=== PATIENT | male | born 1965 | race Caucasian/White ===

== ENCOUNTER 2017-08-17 19:27 | Inpatient (IN) | payer OTHER ==
[2017-08-17] MEDS ORDERED: SODIUM CHLORIDE 0.9% 1,000 ML IV SCH (20:15)
[2017-08-17 20:27] LABS: Basophils % (A) 0 %; CH 35.6; CHCM 34.6; Eosinophils # (A) 0.1 k/uL (0-0.7); Eosinophils % (A) 1 %; HCT 47.4 % (39.0-53.0); HDW 2.23; HGB 15.3 gm/dL (13.0-17.5); Luc # (Auto) 0.13; Luc % (Auto) 1; Lymphocytes # (A) 0.6 k/uL (1.0-4.8); Lymphocytes % (A) 4 %; MCH 33.4 pg (25.0-35.0); MCHC 32.4 g/dL (31.0-37.0); MCV 103.3 fL (80.0-100.0); Macrocytosis Slight; Mean Platelet Volume 6.6; Monocytes # (A) 0.9 k/uL (0-1.0); Monocytes % (A) 6 %; Neutrophils # (A) 14.4 k/uL (1.3-7.7); Neutrophils % (A) 89 %; RBC 4.58 m/uL (4.30-5.90); RDW 12.8 % (11.5-15.5); WBC 16.3 k/uL (3.8-10.6); WBC (Perox) 17.09
[2017-08-17 20:36] LABS: Partial Thromboplastin Time 29.2 sec (22.0-30.0)
[2017-08-17 20:38] LABS: Prothrombin Time 10.2 sec (9.0-12.0)
[2017-08-17 20:39] LABS: ALT 47 U/L (21-72); AST 57 U/L (17-59); Alkaline Phosphatase 91 U/L (38-126); Anion Gap 7 mmol/L; Blood Urea Nitrogen 6 mg/dL (9-20); Calcium 8.4 mg/dL (8.4-10.2); Carbon Dioxide 28 mmol/L (22-30); Glucose 95 mg/dL (74-99); Magnesium 1.6 mg/dL (1.6-2.3); Non-African American GFR(MDRD) >60 (>60 ml/min/1.73 sqM); Total Bilirubin 0.7 mg/dL (0.2-1.3); Total Protein 6.9 g/dL (6.3-8.2)
[2017-08-17 20:42] LABS: Chloride 75 mmol/L (98-107); Sodium 110 mmol/L (137-145)
--- NOTE | 2017-08-17 20:53 | XR ---
EXAMINATION TYPE: XR chest 2V DATE OF EXAM: 08/17/2017 COMPARISON: NONE HISTORY: Fatigue TECHNIQUE: Frontal and lateral views of the chest are obtained. FINDINGS: There is patchy infiltrate in the left lower lobe. Heart is no grossly enlarged. There is blunting of left costophrenic angle. There are chest leads. Thoracic aorta is atheromatous. Bony thor ax is intact. IMPRESSION: There is left pleural effusion and left lower lobe pneumonia. No gross heart failure.
[2017-08-17 20:56] LABS: Appearance,Urine Clear (Clear); Bilirubin,Urine Negative (Negative); Glucose,Urine (UA) Negative (Negative); Ketones,Urine Negative (Negative); Leukocyte Esterase,Urine Negative (Negative); Mucus,Urine Rare /hpf; Nitrite,Urine Negative (Negative); Particle Count 342; Protein,Urine Negative (Negative); RBC,Urine 4 /hpf (0-5); Specific Gravity,Urine 1.009 (1.001-1.035); Squamous Epithelial Cell,Urine <1 /hpf (0-4); UA Billing (MACRO vs. MICRO) MICRO; Urobilinogen,Urine <2.0 mg/dL (<2.0); WBC,Urine 1 /hpf (0-5)
[2017-08-17] MEDS ORDERED: AZITHROMYCIN 500 MG in SODIUM CHLORIDE 0.9% 250 ML IVPB STA (21:01)
--- NOTE | 2017-08-17 21:10 | ED ---
General Adult HPI - General Chief complaint: Recheck/Abnormal Lab/Rx Stated complaint: Dizzy/Weakness Time Seen by Provider: 08/17/17 20:03 Source: patient, family Mode of arrival: ambulatory Limitations: no limitations - History of Present Illness Initial comments: This is a 52-year-old male with a history of hypertension and chronic low back pain who presents emergency department for low sodium. He was sent in by his primary doctor. He states that he has a history of this over the last few weeks and there've been trying to figure out what the causes however when he had his labwork drawn earlier today was very low so they told to come emergency department. He does admit to some cough and shortness of breath. Denies any leg swelling. No lightheadedness or dizziness. No weakness. He states he is recently changed from one blood pressure medication to another but no other medication changes. He denies any other acute complaints currently. - Related Data Home Medications Medication Instructions Recorded Confirmed oxyCODONE HCL [OxyCONTIN] 30 mg PO Q12H 04/14/16 08/17/17 oxyCODONE HCL [Oxyir] 5 mg PO Q8H PRN 04/14/16 08/17/17 Budesonide/Formoterol Fumarate 2 puff INHALATION RT-BID 08/17/17 08/17/17 [Symbicort 160-4.5 Mcg Inhaler] Citalopram Hydrobromide [CeleXA] 40 mg PO DAILY 08/17/17 08/17/17 Lisinopril [Prinivil] 20 mg PO DAILY 08/17/17 08/17/17 Tamsulosin [Flomax] 0.4 mg PO DAILY 08/17/17 08/17/17 Allergies Allergy/AdvReac Type Severity Reaction Status Date / Time No Known Allergies Allergy Verified 08/17/17 20:21 Review of Systems ROS Statement: Those systems with pertinent positive or pertinent negative responses have been documented in the HPI. ROS Other: All systems not noted in ROS Statement are negative. Past Medical History Past Medical History: Hypertension, Osteoarthritis (OA) History of Any Multi-Drug Resistant Organisms: None Reported Additional Past Surgical History / Comment(s): PAIN CLINIC PROCEDURES Past Anesthesia/Blood Transfusion Reactions: No Reported Reaction Past Psychological History: Depression Smoking Status: Current every day smoker - Past Family History Mother Family Medical History: No Reported History General Exam - General Exam Comments Initial Comments: Constitutional: Awake alert Appears comfortable Head: Normocephalic atraumatic Eyes: no conjunctival injection No scleral icterus EOMI Neck: No JVD Supple Heart: Regular rate rhythm normal S1-S2 no murmurs Lungs: Clear to auscultation bilaterally No wheezing b/l rales at bases Abdomen: Soft nondistended nontender Extremities: Non edematous DP pulses intact Radial pulses intact Neuro: A&Ox3 No focal neurologic deficits Psych: Appropriate mood and affect Limitations: no limitations Course Vital Signs 08/17/17 08/17/17 08/17/17 19:44 20:20 21:35 Temperature 97.9 F Pulse Rate 88 84 81 Respiratory 24 20 16 Rate Blood Pressure 146/73 169/100 152/80 O2 Sat by Pulse 79 L 95 95 Oximetry EKG Findings - EKG Comments: EKG Findings:: EKG showing normal sinus rhythm with a rate 84. No abnormal ST segment changes or T-wave inversion. QTC is 423. Other intervals are normal no ectopy. Medical Decision Making - Medical Decision Making This is a 52-year-old male who presents emergency report for low sodium. He was found to be 110. He also has found to have pneumonia or some kind of mass on his x-ray. He was sent down for CAT scan. Spoke with Dr. Adis Benoit who are on board. They want started 3% saline the patient will be transferred to ICU under the care of Dr. Mack. - Lab Data Result diagrams: 08/17/17 20:05 08/17/17 20:05 Lab Results 08/17/17 08/17/17 08/17/17 Range/Units 20:05 20:05 20:05 WBC 16.3 H (3.8-10.6) k/uL RBC 4.58 (4.30-5.90) m/uL Hgb 15.3 (13.0-17.5) gm/dL Hct 47.4 (39.0-53.0) % MCV 103.3 H (80.0-100.0) fL MCH 33.4 (25.0-35.0) pg MCHC 32.4 (31.0-37.0) g/dL RDW 12.8 (11.5-15.5) % Plt Count 315 (150-450) k/uL Neutrophils % 89 % Lymphocytes % 4 % Monocytes % 6 % Eosinophils % 1 % Basophils % 0 % Neutrophils # 14.4 H (1.3-7.7) k/uL Lymphocytes # 0.6 L (1.0-4.8) k/uL Monocytes # 0.9 (0-1.0) k/uL Eosinophils # 0.1 (0-0.7) k/uL Basophils # 0.0 (0-0.2) k/uL Macrocytosis Slight PT (9.0-12.0) sec INR (<1.2) APTT (22.0-30.0) sec Sodium 110 L* (137-145) mmol/L Potassium 5.0 (3.5-5.1) mmol/L Chloride 75 L* (98-107) mmol/L Carbon Dioxide 28 (22-30) mmol/L Anion Gap 7 mmol/L BUN 6 L (9-20) mg/dL Creatinine 0.50 L (0.66-1.25) mg/dL Est GFR (MDRD) Af Amer >60 (>60 ml/min/1.73 sqM) Est GFR (MDRD) Non-Af >60 (>60 ml/min/1.73 sqM) Glucose 95 (74-99) mg/dL Osmolality (280-301) mosm/kg Plasma Lactic Acid Stanley (0.7-2.0) mmol/L Calcium 8.4 (8.4-10.2) mg/dL Magnesium 1.6 (1.6-2.3) mg/dL Total Bilirubin 0.7 (0.2-1.3) mg/dL AST 57 (17-59) U/L ALT 47 (21-72) U/L Alkaline Phosphatase 91 (38-126) U/L Troponin I <0.012 (0.000-0.034) ng/mL NT-Pro-B Natriuret Pep pg/mL Total Protein 6.9 (6.3-8.2) g/dL Albumin 3.9 (3.5-5.0) g/dL Urine Color Urine Appearance (Clear) Urine pH (5.0-8.0) Ur Specific [place] (1.001-1.035) Urine Protein (Negative) Urine Glucose (UA) (Negative) Urine Ketones (Negative) Urine Blood (Negative) Urine Nitrite (Negative) Urine Bilirubin (Negative) Urine Urobilinogen (<2.0) mg/dL Ur Leukocyte Esterase (Negative) Urine RBC (0-5) /hpf Urine WBC (0-5) /hpf Ur Squamous Epith Cells (0-4) /hpf Hyaline Casts (0-2) /lpf Urine Mucus (None) /hpf Urine Osmolality (50-1400) mosm/kg Ur Random Creatinine mg/dL Ur Random Sodium (30-90) mmol/L 08/17/17 08/17/17 08/17/17 Range/Units 20:05 20:05 20:05 WBC (3.8-10.6) k/uL RBC (4.30-5.90) m/uL Hgb (13.0-17.5) gm/dL Hct (39.0-53.0) % MCV (80.0-100.0) fL MCH (25.0-35.0) pg MCHC (31.0-37.0) g/dL RDW (11.5-15.5) % Plt Count (150-450) k/uL Neutrophils % % Lymphocytes % % Monocytes % % Eosinophils % % Basophils % % Neutrophils # (1.3-7.7) k/uL Lymphocytes # (1.0-4.8) k/uL Monocytes # (0-1.0) k/uL Eosinophils # (0-0.7) k/uL Basophils # (0-0.2) k/uL Macrocytosis PT 10.2 (9.0-12.0) sec INR 1.0 (<1.2) APTT 29.2 (22.0-30.0) sec Sodium (137-145) mmol/L Potassium (3.5-5.1) mmol/L Chloride (98-107) mmol/L Carbon Dioxide (22-30) mmol/L Anion Gap mmol/L BUN (9-20) mg/dL Creatinine (0.66-1.25) mg/dL Est GFR (MDRD) Af Amer (>60 ml/min/1.73 sqM) Est GFR (MDRD) Non-Af (>60 ml/min/1.73 sqM) Glucose (74-99) mg/dL Osmolality 236 L* (280-301) mosm/kg Plasma Lactic Acid Stanley (0.7-2.0) mmol/L Calcium (8.4-10.2) mg/dL Magnesium (1.6-2.3) mg/dL Total Bilirubin (0.2-1.3) mg/dL AST (17-59) U/L ALT (21-72) U/L Alkaline Phosphatase (38-126) U/L Troponin I (0.000-0.034) ng/mL NT-Pro-B Natriuret Pep 261 pg/mL Total Protein (6.3-8.2) g/dL Albumin (3.5-5.0) g/dL Urine Color Urine Appearance (Clear) Urine pH (5.0-8.0) Ur Specific [place] (1.001-1.035) Urine Protein (Negative) Urine Glucose (UA) (Negative) Urine Ketones (Negative) Urine Blood (Negative) Urine Nitrite (Negative) Urine Bilirubin (Negative) Urine Urobilinogen (<2.0) mg/dL Ur Leukocyte Esterase (Negative) Urine RBC (0-5) /hpf Urine WBC (0-5) /hpf Ur Squamous Epith Cells (0-4) /hpf Hyaline Casts (0-2) /lpf Urine Mucus (None) /hpf Urine Osmolality (50-1400) mosm/kg Ur Random Creatinine mg/dL Ur Random Sodium (30-90) mmol/L 08/17/17 08/17/17 08/17/17 Range/Units 20:05 20:36 20:36 WBC (3.8-10.6) k/uL RBC (4.30-5.90) m/uL Hgb (13.0-17.5) gm/dL Hct (39.0-53.0) % MCV (80.0-100.0) fL MCH (25.0-35.0) pg MCHC (31.0-37.0) g/dL RDW (11.5-15.5) % Plt Count (150-450) k/uL Neutrophils % % Lymphocytes % % Monocytes % % Eosinophils % % Basophils % % Neutrophils # (1.3-7.7) k/uL Lymphocytes # (1.0-4.8) k/uL Monocytes # (0-1.0) k/uL Eosinophils # (0-0.7) k/uL Basophils # (0-0.2) k/uL Macrocytosis PT (9.0-12.0) sec INR (<1.2) APTT (22.0-30.0) sec Sodium (137-145) mmol/L Potassium (3.5-5.1) mmol/L Chloride (98-107) mmol/L Carbon Dioxide (22-30) mmol/L Anion Gap mmol/L BUN (9-20) mg/dL Creatinine (0.66-1.25) mg/dL Est GFR (MDRD) Af Amer (>60 ml/min/1.73 sqM) Est GFR (MDRD) Non-Af (>60 ml/min/1.73 sqM) Glucose (74-99) mg/dL Osmolality (280-301) mosm/kg Plasma Lactic Acid Stanley 1.3 (0.7-2.0) mmol/L Calcium (8.4-10.2) mg/dL Magnesium (1.6-2.3) mg/dL Total Bilirubin (0.2-1.3) mg/dL AST (17-59) U/L ALT (21-72) U/L Alkaline Phosphatase (38-126) U/L Troponin I (0.000-0.034) ng/mL NT-Pro-B Natriuret Pep pg/mL Total Protein (6.3-8.2) g/dL Albumin (3.5-5.0) g/dL Urine Color Light Yellow Urine Appearance Clear (Clear) Urine pH 6.0 (5.0-8.0) Ur Specific [place] 1.009 (1.001-1.035) Urine Protein Negative (Negative) Urine Glucose (UA) Negative (Negative) Urine Ketones Negative (Negative) Urine Blood Trace H (Negative) Urine Nitrite Negative (Negative) Urine Bilirubin Negative (Negative) Urine Urobilinogen <2.0 (<2.0) mg/dL Ur Leukocyte Esterase Negative (Negative) Urine RBC 4 (0-5) /hpf Urine WBC 1 (0-5) /hpf Ur Squamous Epith Cells <1 (0-4) /hpf Hyaline Casts 1 (0-2) /lpf Urine Mucus Rare H (None) /hpf Urine Osmolality (50-1400) mosm/kg Ur Random Creatinine 33.3 mg/dL Ur Random Sodium (30-90) mmol/L 08/17/17 08/17/17 Range/Units 20:36 20:36 WBC (3.8-10.6) k/uL RBC (4.30-5.90) m/uL Hgb (13.0-17.5) gm/dL Hct (39.0-53.0) % MCV (80.0-100.0) fL MCH (25.0-35.0) pg MCHC (31.0-37.0) g/dL RDW (11.5-15.5) % Plt Count (150-450) k/uL Neutrophils % % Lymphocytes % % Monocytes % % Eosinophils % % Basophils % % Neutrophils # (1.3-7.7) k/uL Lymphocytes # (1.0-4.8) k/uL Monocytes # (0-1.0) k/uL Eosinophils # (0-0.7) k/uL Basophils # (0-0.2) k/uL Macrocytosis PT (9.0-12.0) sec INR (<1.2) APTT (22.0-30.0) sec Sodium (137-145) mmol/L Potassium (3.5-5.1) mmol/L Chloride (98-107) mmol/L Carbon Dioxide (22-30) mmol/L Anion Gap mmol/L BUN (9-20) mg/dL Creatinine (0.66-1.25) mg/dL Est GFR (MDRD) Af Amer (>60 ml/min/1.73 sqM) Est GFR (MDRD) Non-Af (>60 ml/min/1.73 sqM) Glucose (74-99) mg/dL Osmolality (280-301) mosm/kg Plasma Lactic Acid Stanley (0.7-2.0) mmol/L Calcium (8.4-10.2) mg/dL Magnesium (1.6-2.3) mg/dL Total Bilirubin (0.2-1.3) mg/dL AST (17-59) U/L ALT (21-72) U/L Alkaline Phosphatase (38-126) U/L Troponin I (0.000-0.034) ng/mL NT-Pro-B Natriuret Pep pg/mL Total Protein (6.3-8.2) g/dL Albumin (3.5-5.0) g/dL Urine Color Urine Appearance (Clear) Urine pH (5.0-8.0) Ur Specific [place] (1.001-1.035) Urine Protein (Negative) Urine Glucose (UA) (Negative) Urine Ketones (Negative) Urine Blood (Negative) Urine Nitrite (Negative) Urine Bilirubin (Negative) Urine Urobilinogen (<2.0) mg/dL Ur Leukocyte Esterase (Negative) Urine RBC (0-5) /hpf Urine WBC (0-5) /hpf Ur Squamous Epith Cells (0-4) /hpf Hyaline Casts (0-2) /lpf Urine Mucus (None) /hpf Urine Osmolality 403 (50-1400) mosm/kg Ur Random Creatinine mg/dL Ur Random Sodium 96 H (30-90) mmol/L Disposition Clinical Impression: Hyponatremia, CAP (community acquired pneumonia) Disposition: ADMITTED IP TO THIS [facility] Condition: Critical
[2017-08-17] MEDS ORDERED: NALOXONE 0.4 MG/ML 1 ML VIAL IV PRN (21:37)
[2017-08-17] MEDS ORDERED: RX INFO: IV CONTRAST WAS GIVEN 1 EACH MISC MISCELLANE PRN (21:53)
--- NOTE | 2017-08-17 22:26 | CT ---
EXAMINATION TYPE: CT chest w con DATE OF EXAM: 08/17/2017 COMPARISON: NONE HISTORY: Pneumonia CT DLP: 164.2 mGycm Automated exposure control for dose reduction was used. CONTRAST: CT scan of the chest is performed with IV Contrast, patient injected with 100 mL of Omnipaque 300. FINDINGS: There is a 1.5 cm nodular infiltrate in the anterior right upper lobe. There is abnormal increased de nsity around the left pulmonary hilum and subcarinal region. There is encasement of the left pulmonar y artery. There is left bronchial adenopathy. There is left pleural effusion. There is coarse interst itial edema in the left lower lobe. There is mild subpleural interstitial infiltrate in the right low er lobe. There is no pleural fluid on the right side. There is no adrenal mass. There is 2 cm right renal cortical cyst. Heart size is normal. There is no pericardial effusion. Thoracic aorta appears normal. There is no si gn of aneurysm or dissection. I see no sign of pulmonary embolism. The bony thorax is intact. IMPRESSION: Left pleural effusion with interstitial and alveolar edema in the left lung predominantl y in the left lower lobe. There is extensive left sided bronchial adenopathy and subcarinal adenopath y that is suspicious for tumor. Mild infiltrates in the right lung. Follow-up is recommended. No evidence of pulmonary embolism.
[2017-08-17 22:49] LABS: Glucose,Whole Blood 103 mg/dL (75-99)
[2017-08-17] MEDS ORDERED: SODIUM CHLORIDE 3%(HYPERTONIC) 500 ML IV SCH (23:00)
[2017-08-17] MEDS: oxyCODONE ER 15 MG TAB.ER.12H PO SCH (23:07)
[2017-08-17 23:14] LABS: Basophils # (A) 0.1 k/uL (0-0.2); Basophils % (A) 0 %; CH 35.2; CHCM 34.9; Eosinophils # (A) 0.1 k/uL (0-0.7); Eosinophils % (A) 1 %; HCT 47.9 % (39.0-53.0); HDW 2.25; HGB 15.8 gm/dL (13.0-17.5); Luc # (Auto) 0.12; Luc % (Auto) 1; Lymphocytes # (A) 0.7 k/uL (1.0-4.8); Lymphocytes % (A) 4 %; MCH 33.5 pg (25.0-35.0); MCHC 33.1 g/dL (31.0-37.0); MCV 101.3 fL (80.0-100.0); Mean Platelet Volume 6.8; Monocytes # (A) 0.7 k/uL (0-1.0); Monocytes % (A) 5 %; Neutrophils # (A) 13.2 k/uL (1.3-7.7); Neutrophils % (A) 89 %; RBC 4.72 m/uL (4.30-5.90); RDW 12.7 % (11.5-15.5); WBC 14.9 k/uL (3.8-10.6); WBC (Perox) 14.95
[2017-08-17 23:24] LABS: Ionized Calcium 4.2 mg/dL (4.5-5.3)
[2017-08-17 23:31] LABS: Anion Gap 5 mmol/L; Blood Urea Nitrogen 5 mg/dL (9-20); Calcium 8.3 mg/dL (8.4-10.2); Carbon Dioxide 27 mmol/L (22-30); Glucose 89 mg/dL (74-99); Magnesium 1.7 mg/dL (1.6-2.3); Non-African American GFR(MDRD) >60 (>60 ml/min/1.73 sqM); Phosphorous 3.2 mg/dL (2.5-4.5); Potassium 5.1 mmol/L (3.5-5.1)
[2017-08-17 23:32] LABS: Chloride 77 mmol/L (98-107); Sodium 109 mmol/L (137-145)
[2017-08-18 00:36] VITALS: BMI 21.5
[2017-08-18 02:27] LABS: CH 34.6; CHCM 33.7; HCT 42.5 % (39.0-53.0); HDW 2.26; MCH 36.4 pg (25.0-35.0); MCHC 35.3 g/dL (31.0-37.0); MCV 103.1 fL (80.0-100.0); Macrocytosis Slight; Mean Platelet Volume 6.1; RBC 4.13 m/uL (4.30-5.90); RDW 12.1 % (11.5-15.5); WBC 13.3 k/uL (3.8-10.6)
[2017-08-18 02:40] LABS: ALT 43 U/L (21-72); AST 51 U/L (17-59); Alkaline Phosphatase 73 U/L (38-126); Anion Gap 4 mmol/L; Blood Urea Nitrogen 6 mg/dL (9-20); Calcium 8.2 mg/dL (8.4-10.2); Carbon Dioxide 28 mmol/L (22-30); Chloride 81 mmol/L (98-107); Glucose 91 mg/dL (74-99); Magnesium 1.7 mg/dL (1.6-2.3); Non-African American GFR(MDRD) >60 (>60 ml/min/1.73 sqM); Phosphorous 3.5 mg/dL (2.5-4.5); Total Bilirubin 0.6 mg/dL (0.2-1.3); Total Protein 5.9 g/dL (6.3-8.2)
[2017-08-18 02:49] LABS: Sodium 113 mmol/L (137-145)
[2017-08-18] MEDS: MAGNESIUM SULFATE-D5W PMX 1 GM in DEXTROSE/WATER 1 100ML.BAG IVPB SCH ×2 (04:54→05:56)
--- NOTE | 2017-08-18 07:22 | XR ---
EXAMINATION TYPE: XR chest 1V portable DATE OF EXAM: 08/18/2017 HISTORY: Shortness of breath. COMPARISON: 08/17/2017 TECHNIQUE: Single view of the chest is submitted. FINDINGS: Demonstrated are scattered senescent parenchymal change. There is left lower lobe infiltrate which is improving. The heart is stable. Hilar and mediastinal structures are within normal limits. Degenerative changes are seen of the dorsal spine. IMPRESSION: 1. Improving left lower lobe infiltrate.
[2017-08-18 07:46] LABS: ALT 43 U/L (21-72); AST 40 U/L (17-59); Alkaline Phosphatase 78 U/L (38-126); Anion Gap 5 mmol/L; Blood Urea Nitrogen 5 mg/dL (9-20); Calcium 8.2 mg/dL (8.4-10.2); Carbon Dioxide 30 mmol/L (22-30); Chloride 83 mmol/L (98-107); Glucose 100 mg/dL (74-99); Non-African American GFR(MDRD) >60 (>60 ml/min/1.73 sqM); Potassium 4.5 mmol/L (3.5-5.1); Total Bilirubin 0.7 mg/dL (0.2-1.3); Total Protein 5.8 g/dL (6.3-8.2)
[2017-08-18 07:54] LABS: Sodium 118 mmol/L (137-145)
[2017-08-18] MEDS: SYMBICORT 160-4.5 MCG INHALER INHALATION SCH ×2 (08:11→19:24)
[2017-08-18] MEDS: oxyCODONE ER 15 MG TAB.ER.12H PO SCH ×2 (08:29→20:58)
[2017-08-18] MEDS: TAMSULOSIN 0.4 MG CAP.ER.24H PO SCH (08:29)
--- NOTE | 2017-08-18 08:53 | P.CNPUL ---
History of Present Illness Consult date: 08/18/17 Reason for consult: lung mass History of present illness: 52-year-old male patient who was having difficulties with hyponatremia on outpatient basis. The patient was worked up initially through his primary care physician and later on sent to endocrinology. Yesterday he came into the emergency department knowing that his sodium level on outpatient was 110. He was feeling weak and tired. He was relatively asymptomatic. He has chronic shortness of breath cough chest tightness and wheezing related to chronic bronchitis and COPD. The patient has smoked one half pack of cigarettes a day for a total of 40 years. He had been using Symbicort on an as-needed basis for shortness of breath. The patient came into the emergency department yesterday. I reviewed the chest x-ray and there was volume loss and elevation of left hemidiaphragm and possibly left hilar mass. Based on this, I ordered a computed tomography scan of the chest that showed a 1.5 cm another infiltrate in the anterior aspect of the right upper lobe. Abnormal increased density in the left hilar area and subcarinal area and there is encasement of the left pulmonary artery and there is left bronchial adenopathy. There was also small left-sided pleural effusion. Coarse interstitial edema in the left lower lobe and mild subpleural interstitial infiltrates in the right lung base. No adrenal mass. The findings are suspicious for a primary bronchogenic cancer. In terms of his hyponatremia, the patient has received hypertonic solution saline overnight at 3 % at the rate of 20 mL an hour and the sodium level is up to 118 this morning. No headache. No nausea. No vomiting. No diarrhea. No excessive beer drinking. He has no change in mental status. He has no hemoptysis. No weight loss. No seizure activity. No altered mentation. Based on the rapid improvement in sodium level, the hypertonic saline was discontinued and the patient was started on a 0.9 saline solution at the rate of 20 mL an hour. The urine osmolality is at 403. Urine sodium is 96. Review of Systems Constitutional: Reports fatigue, Reports weakness Eyes: denies blurred vision, denies bulging eye, denies decreased vision Ears: deny: decreased hearing, ear discharge, earache Ears, nose, mouth and throat: Denies headache, Denies sore throat Cardiovascular: Reports decreased exercise tolerance, Reports dyspnea on exertion, Reports shortness of breath Respiratory: Reports cough, Reports cough with sputum, Reports dyspnea, Reports wheezing Gastrointestinal: Denies abdominal pain, Denies diarrhea, Denies nausea, Denies vomiting Musculoskeletal: Denies myalgias Musculoskeletal: absent: ankle pain, ankle stiffness, ankle swelling Integumentary: Denies pruritus, Denies rash Neurological: Reports weakness, Denies numbness Psychiatric: Denies anxiety, Denies depression Past Medical History Past Medical History: Hypertension, Osteoarthritis (OA) Additional Past Medical History / Comment(s): Hypertension, COPD/chronic bronchitis, chronic lower back pain, OA, anxiety/depression maintained on Celexa , BPH History of Any Multi-Drug Resistant Organisms: None Reported Additional Past Surgical History / Comment(s): PAIN CLINIC PROCEDURES Past Anesthesia/Blood Transfusion Reactions: No Reported Reaction Smoking Status: Current every day smoker (Smoking since the age of 12 1-1/2-2 pack of cigarettes a day, no alcoholism, he works for [employer]) - Past Family History Mother Family Medical History: No Reported History Medications and Allergies Home Medications Medication Instructions Recorded Confirmed Type oxyCODONE HCL [OxyCONTIN] 30 mg PO Q12H 04/14/16 08/17/17 History oxyCODONE HCL [Oxyir] 5 mg PO Q8H PRN 04/14/16 08/17/17 History Budesonide/Formoterol Fumarate 2 puff INHALATION RT-BID 08/17/17 08/17/17 History [Symbicort 160-4.5 Mcg Inhaler] Citalopram Hydrobromide [CeleXA] 40 mg PO DAILY 08/17/17 08/17/17 History Lisinopril [Prinivil] 20 mg PO DAILY 08/17/17 08/17/17 History Tamsulosin [Flomax] 0.4 mg PO DAILY 08/17/17 08/17/17 History Allergies Allergy/AdvReac Type Severity Reaction Status Date / Time No Known Allergies Allergy Verified 08/17/17 20:21 Physical Exam Vitals: Vital Signs Temp Pulse Resp BP Pulse Ox 08/18/17 07:00 86 17 144/89 95 08/18/17 06:00 82 13 136/82 99 08/18/17 05:00 87 13 146/82 94 L 08/18/17 04:00 97.2 F L 87 28 H 163/87 96 08/18/17 03:00 97 21 156/91 96 08/18/17 02:00 87 26 H 156/90 96 08/18/17 01:00 88 18 158/88 95 08/18/17 00:00 86 15 150/83 92 L 08/17/17 23:00 97.9 F 89 27 H 151/85 95 08/17/17 21:35 81 16 152/80 95 08/17/17 20:20 84 20 169/100 95 08/17/17 19:44 97.9 F 88 24 146/73 79 L Intake and Output 08/17/17 08/18/17 08/18/17 22:59 06:59 14:59 Intake Total 130 950 Output Total 2800 Balance 130 -1850 Intake: IV 100 890 Azithromycin 500 mg In 250 Sodium Chloride 0.9% 250 ml @ 125 mls/hr IVPB ONCE STA Rx#:[id number] Magnesium Sulfate-D5w Pmx 200 1 gm In Dextrose/Water 1 100ml.bag @ 100 mls/hr IVPB Q1H [facility] Rx#: [id number] Sodium Chloride 0.9% 1, 100 340 000 ml @ 100 mls/hr IV . Q10H [facility] Rx#:[id number] Sodium Chloride 3%( 100 Hypertonic) 500 ml @ 20 mls/hr IV .Q24H [facility] Rx#: [id number] Oral 30 60 Output: Urine 2800 Other: Voiding Method Urinal Weight 56.699 kg 58.3 kg The patient appeared well nourished and normally developed. Vital signs as documented. Head exam is unremarkable. No scleral icterus or corneal arcus noted. Neck is without jugular venous distension, thyromegaly, or carotid bruits. Carotid upstrokes are brisk bilaterally. Lungs are diminished breath sound bilaterally along with diffuse expiratory wheezes heard throughout the lung brandt.. Cardiac exam reveals the PMI to be normally sized and situated. Rhythm is regular. First and second heart sounds normal. No murmurs, rubs or gallops. Abdominal exam reveals normal bowel sounds, no masses, no organomegaly and no aortic enlargement. Extremities are nonedematous and both femoral and pedal pulses are normal. Neurologic the patient is awake and alert and there is no focal neurological deficit. Skin examinations negative for select his wounds or ulcers. Psychiatric history is negative for any acute anxiety or depression the patient appropriate mood. Results - Laboratory Findings CBC and BMP: 08/18/17 02:10 08/18/17 06:41 PT/INR, D-dimer PT 10.2 sec (9.0-12.0) 08/17/17 20:05 INR 1.0 (<1.2) 08/17/17 20:05 Abnormal lab findings: Abnormal Labs 08/17/17 08/17/17 08/17/17 20:05 20:05 20:05 WBC 16.3 H RBC MCV 103.3 H MCH Neutrophils # 14.4 H Lymphocytes # 0.6 L Sodium 110 L* Chloride 75 L* BUN 6 L Creatinine 0.50 L Glucose POC Glucose (mg/dL) Osmolality 236 L* Calcium Ionized Calcium Natalie Total Protein Albumin Urine Blood Urine Mucus Ur Random Sodium 08/17/17 08/17/17 08/17/17 20:36 20:36 22:47 WBC RBC MCV MCH Neutrophils # Lymphocytes # Sodium Chloride BUN Creatinine Glucose POC Glucose (mg/dL) 103 H Osmolality Calcium Ionized Calcium Natalie Total Protein Albumin Urine Blood Trace H Urine Mucus Rare H Ur Random Sodium 96 H 08/17/17 08/17/17 08/18/17 22:50 22:50 02:10 WBC 14.9 H 13.3 H RBC 4.13 L MCV 101.3 H 103.1 H MCH 36.4 H Neutrophils # 13.2 H Lymphocytes # 0.7 L Sodium 109 L* Chloride 77 L* BUN 5 L Creatinine 0.50 L Glucose POC Glucose (mg/dL) Osmolality Calcium 8.3 L Ionized Calcium Natalie 4.2 L Total Protein Albumin Urine Blood Urine Mucus Ur Random Sodium 08/18/17 08/18/17 02:10 06:41 WBC RBC MCV MCH Neutrophils # Lymphocytes # Sodium 113 L* 118 L* Chloride 81 L 83 L BUN 6 L 5 L Creatinine 0.50 L 0.55 L Glucose 100 H POC Glucose (mg/dL) Osmolality Calcium 8.2 L 8.2 L Ionized Calcium Natalie Total Protein 5.9 L 5.8 L Albumin 3.1 L 3.1 L Urine Blood Urine Mucus Ur Random Sodium - Diagnostic Findings CT scan - chest: image reviewed Assessment and Plan Plan: Assessment 1 hyponatremia, chronic, 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 The patient was treated with hypertonic saline solution and sodium level is up to 118. He has generalized weakness and there is no focal neurological deficit or any altered mentation or any other neurologic manifestations 2 left hilar mass with lymphadenopathy, rule out bronchogenic cancer 3 chronic bronchitis/COPD with acute exacerbation and ongoing shortness of breath 4 hoarseness probably related to a vocal cord paralysis on the left secondary to hilar mass 5 smoking 6 hypertension 7 BPH 8 history of depression maintained on Celexa for more than 2 years 9 chronic back pain maintained on OxyContin Plan Stop hypertonic solution of saline. Monitor the sodium levels. Restrict fluid intake to less than 1100 mL every 24 hours. Gentle hydration with normal state rate of 20 mL an hour. Monitor sodium level. The findings on the case. May need demeclocycline regarding Coumadin and his SIADH of the sodium remains low. Optimize COPD exacerbation with a combination of bronchodilators and DuoNeb neb last treatment [id number], IV Solu-Medrol and smoking cessation counseling was done. Bronchoscopy either during this current hospital stay or outpatient basis once the patient's COPD exacerbation is improved and settled. High suspicion for an underlying malignancy. Awaiting nephrology consultation.
[2017-08-18] MEDS: methylPREDNISolone SOD SUCCI 125 MG/2 ML VIAL IV SCH ×3 (09:25→20:14)
[2017-08-18] MEDS: NICOTINE 21MG/24HR PATCH TRANSDERM SCH (09:26)
[2017-08-18] MEDS: CITALOPRAM HYDROBROMIDE 20 MG TAB PO SCH (10:46)
--- NOTE | 2017-08-18 10:57 | P.NPCON ---
History of Present Illness - Reason for Consult hyponatremia - History of Present Illness Reason for consultation: Hyponatremia History of present illness: Patient is a 52-year-old male seen in renal consultation for hyponatremia. According to the patient he's been having low sodium levels for the last couple of months which was being followed by his primary care physician. He had blood work done yesterday in the sodium level was down to 110 any was advised to go to the hospital. In the emergency room his sodium level was 109 as of 11 PM last night. He was started on 3% and sodium level is up to 118 this morning. He is currently off all IV fluids. He is alert and oriented 3. He did undergo a CAT scan of the chest which was suggestive of left pleural effusion and a tumor was noted as well. He does have a history of tobacco abuse. Patient does admit to drinking quite a bit amount of water. He states he drinks gallons of liquids including water and Gatorade throughout the day. He denies any vomiting or diarrhea. Oral intake has been good. Denies chest pain or shortness of breath. No evidence of urinary retention. He is also maintained on Celexa which he has been on for years. I don't see any thiazide diuretics and his home medications. Vital signs are stable. General: The patient appeared well nourished and normally developed. HEENT: Head exam is unremarkable. Neck is without jugular venous distension. LUNGS: Lungs are clear to auscultation and percussion. Breath sounds decreased. HEART: Rate and Rhythm are regular. First and second heart sounds normal. No murmurs, rubs or gallops. ABDOMEN: Abdominal exam reveals normal bowel sounds. Non-tender and non- distended. No evidence of peritonitis. EXTREMITITES: No clubbing, cyanosis, or edema. Past Medical History Past Medical History: Hypertension, Osteoarthritis (OA) Additional Past Medical History / Comment(s): Hypertension, COPD/chronic bronchitis, chronic lower back pain, OA, anxiety/depression maintained on Celexa , BPH History of Any Multi-Drug Resistant Organisms: None Reported Additional Past Surgical History / Comment(s): PAIN CLINIC PROCEDURES Past Anesthesia/Blood Transfusion Reactions: No Reported Reaction Smoking Status: Current every day smoker (Smoking since the age of 12 1-1/2-2 pack of cigarettes a day, no alcoholism, he works for [employer]) - Past Family History Mother Family Medical History: No Reported History Medications and Allergies Home Medications Medication Instructions Recorded Confirmed Type oxyCODONE HCL [OxyCONTIN] 30 mg PO Q12H 04/14/16 08/17/17 History oxyCODONE HCL [Oxyir] 5 mg PO Q8H PRN 04/14/16 08/17/17 History Budesonide/Formoterol Fumarate 2 puff INHALATION RT-BID 08/17/17 08/17/17 History [Symbicort 160-4.5 Mcg Inhaler] Citalopram Hydrobromide [CeleXA] 40 mg PO DAILY 08/17/17 08/17/17 History Lisinopril [Prinivil] 20 mg PO DAILY 08/17/17 08/17/17 History Tamsulosin [Flomax] 0.4 mg PO DAILY 08/17/17 08/17/17 History Allergies Allergy/AdvReac Type Severity Reaction Status Date / Time No Known Allergies Allergy Verified 08/17/17 20:21 Physical Exam Vitals: Vital Signs Temp Pulse Resp BP Pulse Ox 08/18/17 10:00 82 16 128/79 96 08/18/17 09:00 77 14 145/85 98 08/18/17 08:00 98.7 F 75 13 146/82 100 08/18/17 07:00 86 17 144/89 95 08/18/17 06:00 82 13 136/82 99 08/18/17 05:00 87 13 146/82 94 L 08/18/17 04:00 97.2 F L 87 28 H 163/87 96 08/18/17 03:00 97 21 156/91 96 08/18/17 02:00 87 26 H 156/90 96 08/18/17 01:00 88 18 158/88 95 08/18/17 00:00 86 15 150/83 92 L 08/17/17 23:00 97.9 F 89 27 H 151/85 95 08/17/17 21:35 81 16 152/80 95 08/17/17 20:20 84 20 169/100 95 08/17/17 19:44 97.9 F 88 24 146/73 79 L Intake and Output 08/17/17 08/18/17 08/18/17 22:59 06:59 14:59 Intake Total 130 950 560 Output Total 2800 1000 Balance 130 -1850 -440 Intake: IV 100 890 60 Azithromycin 500 mg In 250 Sodium Chloride 0.9% 250 ml @ 125 mls/hr IVPB ONCE STA Rx#:[id number] Magnesium Sulfate-D5w Pmx 200 1 gm In Dextrose/Water 1 100ml.bag @ 100 mls/hr IVPB Q1H [facility] Rx#: [id number] Sodium Chloride 0.9% 1, 100 340 60 000 ml @ 100 mls/hr IV . Q10H [facility] Rx#:[id number] Sodium Chloride 3%( 100 Hypertonic) 500 ml @ 20 mls/hr IV .Q24H [facility] Rx#: [id number] Oral 30 60 500 Output: Urine 2800 1000 Other: Voiding Method Urinal Weight 56.699 kg 58.3 kg Results - Lab Results Most recent lab results Calcium 8.2 mg/dL (8.4-10.2) L 08/18/17 06:41 Phosphorus 3.5 mg/dL (2.5-4.5) 08/18/17 02:10 Magnesium 1.7 mg/dL (1.6-2.3) 08/18/17 02:10 08/18/17 02:10 08/18/17 06:41 Assessment and Plan Plan: Assessment: #1. Hyponatremia. Currently appears euvolemic in nature. 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 Sodium level was 109 on admission and is up to 118 this morning. He is currently off all IV fluids. #2. Lung tumor. #3. Benign hypertension. Controlled. Plan: Remains off all IV fluids at this time. Recheck sodium level at 11 AM today. Avoid rapid correction. His sodium level continues to ride I will start him on hypotonic fluids and consider DDAVP to prevent further rise for now. Maintain 1.5 L fluid restriction. Thank you for the consultation. I will continue to follow the patient with you during his hospital stay.
[2017-08-18] MEDS: IPRATROPIUM-ALBUTEROL 3 ML NEB INHALATION SCH ×3 (11:19→19:24)
[2017-08-18 12:15] LABS: Anion Gap 3 mmol/L; Blood Urea Nitrogen 5 mg/dL (9-20); Calcium 8.4 mg/dL (8.4-10.2); Carbon Dioxide 32 mmol/L (22-30); Chloride 83 mmol/L (98-107); Glucose 185 mg/dL (74-99); Non-African American GFR(MDRD) >60 (>60 ml/min/1.73 sqM); Potassium 4.5 mmol/L (3.5-5.1)
[2017-08-18 13:10] LABS: Sodium 118 mmol/L (137-145)
[2017-08-18 14:20] LABS: Glucose,Whole Blood 120 mg/dL (75-99)
[2017-08-18 17:22] LABS: Glucose,Whole Blood 222 mg/dL (75-99)
[2017-08-18] MEDS: INSULIN LISPRO (humaLOG) 300 UNIT/3 ML VIAL SQ SCH ×2 (17:24→20:12)
[2017-08-18 18:09] LABS: Blood Urea Nitrogen 6 mg/dL (9-20); Calcium 8.5 mg/dL (8.4-10.2); Carbon Dioxide 33 mmol/L (22-30); Glucose 203 mg/dL (74-99); Non-African American GFR(MDRD) >60 (>60 ml/min/1.73 sqM); Potassium 4.7 mmol/L (3.5-5.1)
[2017-08-18 18:10] LABS: Sodium 117 mmol/L (137-145)
[2017-08-18 18:11] LABS: Anion Gap 3 mmol/L; Chloride 81 mmol/L (98-107)
[2017-08-18 20:11] LABS: Glucose,Whole Blood 153 mg/dL (75-99)
[2017-08-18 20:19] LABS: Hemoglobin A1C 5.1 % (4.2-6.1)
[2017-08-18 21:10] LABS: Anion Gap 7 mmol/L; Blood Urea Nitrogen 9 mg/dL (9-20); Calcium 8.8 mg/dL (8.4-10.2); Carbon Dioxide 31 mmol/L (22-30); Chloride 82 mmol/L (98-107); Glucose 135 mg/dL (74-99); Non-African American GFR(MDRD) >60 (>60 ml/min/1.73 sqM); Potassium 4.2 mmol/L (3.5-5.1)
[2017-08-18 21:12] LABS: Sodium 120 mmol/L (137-145)
--- NOTE | 2017-08-18 22:56 | P.HPIM ---
History of Present Illness H&P Date: 08/18/17 Chief Complaint: Hyponatremia 50-year-old male with a known history of COPD was admitted to the hospital due to severe hyponatremia. Patient is having hyponatremia for the last 2 months and is being managed by primary care physician. Patient was found to have sodium level of 110 and was advised to come to hospital. Patient was given hypertonic saline and sodium level improved to [address] of the chest was done and suspected to have bronchogenic carcinoma and pleural effusion. Nephrology and pulmonary was consulted,. He denies any vomiting or diarrhea. Oral intake has been good. Denies chest pain or shortness of breath. No evidence of urinary retention. He is also maintained on Celexa which he has been on for years. Patient denied any fever or chills. No recent illnesses. Review of Systems Constitutional: Patient denies any fever or chills . No generalized weakness or weight loss. Abdomen: Patient denied nausea vomiting and diarrhea and abdominal pain. Cardiovascular: Patient denies any chest pain or short of breath no palpitations. Respiratory: patient denied any cough is from production. No shortness of breath Neurologic: Patient denied any numbness or tingling headache. Musculoskeletal: Patient denies any complaints of joint swelling or deformity. Skin: Negative Psychiatric: Negative Endocrine: No heat or cold intolerance. No recent weight gain. Genitourinary: No dysuria or hematuria. All other 14 point ROS negative except the above Past Medical History Past Medical History: Hypertension, Osteoarthritis (OA) Additional Past Medical History / Comment(s): Hypertension, COPD/chronic bronchitis, chronic lower back pain, OA, anxiety/depression maintained on Celexa , BPH History of Any Multi-Drug Resistant Organisms: None Reported Additional Past Surgical History / Comment(s): PAIN CLINIC PROCEDURES Past Anesthesia/Blood Transfusion Reactions: No Reported Reaction Smoking Status: Current every day smoker (Smoking since the age of 12 1-1/2-2 pack of cigarettes a day, no alcoholism, he works for [employer].) - Past Family History Mother Family Medical History: No Reported History Medications and Allergies Home Medications Medication Instructions Recorded Confirmed Type oxyCODONE HCL [OxyCONTIN] 30 mg PO Q12H 04/14/16 08/17/17 History oxyCODONE HCL [Oxyir] 5 mg PO Q8H PRN 04/14/16 08/17/17 History Budesonide/Formoterol Fumarate 2 puff INHALATION RT-BID 08/17/17 08/17/17 History [Symbicort 160-4.5 Mcg Inhaler] Citalopram Hydrobromide [CeleXA] 40 mg PO DAILY 08/17/17 08/17/17 History Lisinopril [Prinivil] 20 mg PO DAILY 08/17/17 08/17/17 History Tamsulosin [Flomax] 0.4 mg PO DAILY 08/17/17 08/17/17 History Allergies Allergy/AdvReac Type Severity Reaction Status Date / Time No Known Allergies Allergy Verified 08/17/17 20:21 Physical Exam Vitals: Vital Signs Temp Pulse Resp BP Pulse Ox 08/18/17 14:00 75 12 116/76 98 08/18/17 13:00 74 12 128/81 96 08/18/17 12:00 79 12 113/67 94 L 08/18/17 11:38 81 08/18/17 11:24 81 08/18/17 11:22 12 08/18/17 11:00 82 12 131/72 97 08/18/17 10:00 82 16 128/79 96 08/18/17 09:00 77 14 145/85 98 08/18/17 08:00 98.7 F 75 12 146/82 100 08/18/17 07:00 86 17 144/89 95 08/18/17 06:00 82 13 136/82 99 08/18/17 05:00 87 13 146/82 94 L 08/18/17 04:00 97.2 F L 87 28 H 163/87 96 08/18/17 03:00 97 21 156/91 96 08/18/17 02:00 87 26 H 156/90 96 08/18/17 01:00 88 18 158/88 95 08/18/17 00:00 86 15 150/83 92 L 08/17/17 23:00 97.9 F 89 27 H 151/85 95 08/17/17 21:35 81 16 152/80 95 08/17/17 20:20 84 20 169/100 95 08/17/17 19:44 97.9 F 88 24 146/73 79 L Intake and Output 08/18/17 08/18/17 08/18/17 06:59 14:59 22:59 Intake Total 950 640 Output Total 2800 2200 Balance -1850 -1560 Intake: IV 890 140 Azithromycin 500 mg In 250 Sodium Chloride 0.9% 250 ml @ 125 mls/hr IVPB ONCE STA Rx#:[id number] Magnesium Sulfate-D5w Pmx 200 1 gm In Dextrose/Water 1 100ml.bag @ 100 mls/hr IVPB Q1H [facility] Rx#: [id number] Sodium Chloride 0.9% 1, 340 140 000 ml @ 100 mls/hr IV . Q10H [facility] Rx#:[id number] Sodium Chloride 3%( 100 Hypertonic) 500 ml @ 20 mls/hr IV .Q24H [facility] Rx#: [id number] Oral 60 500 Output: Urine 2800 2200 Other: Voiding Method Urinal Urinal Weight 58.3 kg PHYSICAL EXAMINATION: Patient is lying in the bed comfortably, no acute distress, awake alert and oriented.. HEENT: Normocephalic. Neck is supple. Pupils reactive. Nostrils clear. Oral cavity is moist. Ears reveal no drainage. Neck reveals no JVD, carotid bruits, or thyromegaly. CHEST EXAMINATION: Trachea is central. Symmetrical expansion. Diminished breath sounds bibasilarly and expiratory wheezing. CARDIAC: Normal S1, S2 with no gallops. No murmurs ABDOMEN: Soft. Bowel sounds normal. No organomegaly. No abdominal bruits. Extremities: reveal no edema. No clubbing or cyanosis Neurologically awake, alert, oriented x3 with well-coordinated movements. No focal deficits noted Skin: No rash or skin lesions. Psychiatric: Operative. Nonsuicidal Musculoskeletal: No joint swelling or deformity. Normal range of motion. Results CBC & Chem 7: 08/18/17 02:10 08/18/17 20:36 Labs: Abnormal Lab Results - Last 24 Hours (Table) 08/17/17 08/17/17 08/17/17 Range/Units 20:05 20:05 20:05 WBC 16.3 H (3.8-10.6) k/uL RBC (4.30-5.90) m/uL MCV 103.3 H (80.0-100.0) fL MCH (25.0-35.0) pg Neutrophils # 14.4 H (1.3-7.7) k/uL Lymphocytes # 0.6 L (1.0-4.8) k/uL Sodium 110 L* (137-145) mmol/L Chloride 75 L* (98-107) mmol/L Carbon Dioxide (22-30) mmol/L BUN 6 L (9-20) mg/dL Creatinine 0.50 L (0.66-1.25) mg/dL Glucose (74-99) mg/dL POC Glucose (mg/dL) (75-99) mg/dL Osmolality 236 L* (280-301) mosm/kg Calcium (8.4-10.2) mg/dL Ionized Calcium Natalie (4.5-5.3) mg/dL Total Protein (6.3-8.2) g/dL Albumin (3.5-5.0) g/dL Urine Blood (Negative) Urine Mucus (None) /hpf Ur Random Sodium (30-90) mmol/L 08/17/17 08/17/17 08/17/17 Range/Units 20:36 20:36 22:47 WBC (3.8-10.6) k/uL RBC (4.30-5.90) m/uL MCV (80.0-100.0) fL MCH (25.0-35.0) pg Neutrophils # (1.3-7.7) k/uL Lymphocytes # (1.0-4.8) k/uL Sodium (137-145) mmol/L Chloride (98-107) mmol/L Carbon Dioxide (22-30) mmol/L BUN (9-20) mg/dL Creatinine (0.66-1.25) mg/dL Glucose (74-99) mg/dL POC Glucose (mg/dL) 103 H (75-99) mg/dL Osmolality (280-301) mosm/kg Calcium (8.4-10.2) mg/dL Ionized Calcium [place] (4.5-5.3) mg/dL Total Protein (6.3-8.2) g/dL Albumin (3.5-5.0) g/dL Urine Blood Trace H (Negative) Urine Mucus Rare H (None) /hpf Ur Random Sodium 96 H (30-90) mmol/L 08/17/17 08/17/17 08/18/17 Range/Units 22:50 22:50 02:10 WBC 14.9 H 13.3 H (3.8-10.6) k/uL RBC 4.13 L (4.30-5.90) m/uL MCV 101.3 H 103.1 H (80.0-100.0) fL MCH 36.4 H (25.0-35.0) pg Neutrophils # 13.2 H (1.3-7.7) k/uL Lymphocytes # 0.7 L (1.0-4.8) k/uL Sodium 109 L* (137-145) mmol/L Chloride 77 L* (98-107) mmol/L Carbon Dioxide (22-30) mmol/L BUN 5 L (9-20) mg/dL Creatinine 0.50 L (0.66-1.25) mg/dL Glucose (74-99) mg/dL POC Glucose (mg/dL) (75-99) mg/dL Osmolality (280-301) mosm/kg Calcium 8.3 L (8.4-10.2) mg/dL Ionized Calcium Natalie 4.2 L (4.5-5.3) mg/dL Total Protein (6.3-8.2) g/dL Albumin (3.5-5.0) g/dL Urine Blood (Negative) Urine Mucus (None) /hpf Ur Random Sodium (30-90) mmol/L 08/18/17 08/18/17 08/18/17 Range/Units 02:10 06:41 11:44 WBC (3.8-10.6) k/uL RBC (4.30-5.90) m/uL MCV (80.0-100.0) fL MCH (25.0-35.0) pg Neutrophils # (1.3-7.7) k/uL Lymphocytes # (1.0-4.8) k/uL Sodium 113 L* 118 L* 118 L* (137-145) mmol/L Chloride 81 L 83 L 83 L (98-107) mmol/L Carbon Dioxide 32 H (22-30) mmol/L BUN 6 L 5 L 5 L (9-20) mg/dL Creatinine 0.50 L 0.55 L 0.55 L (0.66-1.25) mg/dL Glucose 100 H 185 H (74-99) mg/dL POC Glucose (mg/dL) (75-99) mg/dL Osmolality (280-301) mosm/kg Calcium 8.2 L 8.2 L (8.4-10.2) mg/dL Ionized Calcium Natalie (4.5-5.3) mg/dL Total Protein 5.9 L 5.8 L (6.3-8.2) g/dL Albumin 3.1 L 3.1 L (3.5-5.0) g/dL Urine Blood (Negative) Urine Mucus (None) /hpf Ur Random Sodium (30-90) mmol/L 08/18/17 Range/Units 14:18 WBC (3.8-10.6) k/uL RBC (4.30-5.90) m/uL MCV (80.0-100.0) fL MCH (25.0-35.0) pg Neutrophils # (1.3-7.7) k/uL Lymphocytes # (1.0-4.8) k/uL Sodium (137-145) mmol/L Chloride (98-107) mmol/L Carbon Dioxide (22-30) mmol/L BUN (9-20) mg/dL Creatinine (0.66-1.25) mg/dL Glucose (74-99) mg/dL POC Glucose (mg/dL) 120 H (75-99) mg/dL Osmolality (280-301) mosm/kg Calcium (8.4-10.2) mg/dL Ionized Calcium Natalie (4.5-5.3) mg/dL Total Protein (6.3-8.2) g/dL Albumin (3.5-5.0) g/dL Urine Blood (Negative) Urine Mucus (None) /hpf Ur Random Sodium (30-90) mmol/L Thrombosis Risk Factor Assmnt - DVT/VTE Prophylaxis DVT/VTE Prophylaxis: Pharmacologic Prophylaxis ordered - Choose All That Apply Any of the Below Risk Factors Present?: Yes Each Factor Represents 1 point: Age 41-60 years, Medical pt on bed rest, Serious lung disease incl. pneumonia (< 1month) Other Risk Factors: No Other congenital or acquired thrombophilia - If yes, enter type in comment: No Thrombosis Risk Factor Assessment Total Risk Factor Score: 3 Thrombosis Risk Factor Assessment Level: Moderate Risk Assessment and Plan Plan: #1 hyponatremia likely due to SIADH with suspicion for left hilar bronchogenic cancer as well as excessive free water intake #2 newly diagnosed left hilar mass/bronchogenic cancer #3 COPD acute exacerbation #4 hypertension #5 nicotine addiction #6 depression #7 chronic back pain Plan: Patient was initially admitted with sodium level of 110 and which is improved to 118 with hypertonic saline. Patient will be kept on fluid restriction and hold IV fluids. Continue to follow sodium level. Continue with the steroids and breathing treatments for COPD exacerbation. Pulmonary and nephrology is following this patient. Further workup for bronchogenic carcinoma was clinically stable. Will follow closely prognosis is guarded. Time with Patient: Greater than 30
[2017-08-19 01:24] LABS: Anion Gap 4 mmol/L; Blood Urea Nitrogen 8 mg/dL (9-20); Carbon Dioxide 32 mmol/L (22-30); Chloride 86 mmol/L (98-107); Glucose 103 mg/dL (74-99); Non-African American GFR(MDRD) >60 (>60 ml/min/1.73 sqM); Potassium 5.1 mmol/L (3.5-5.1); Sodium 122 mmol/L (137-145)
[2017-08-19] MEDS: methylPREDNISolone SOD SUCCI 125 MG/2 ML VIAL IV SCH ×4 (02:43→21:25)
[2017-08-19 04:48] LABS: Basophils % (A) 0 %; CH 35.3; CHCM 33.6; Eosinophils % (A) 0 %; HCT 52.2 % (39.0-53.0); HDW 2.26; HGB 16.6 gm/dL (13.0-17.5); Luc # (Auto) 0.03; Luc % (Auto) 0; Lymphocytes # (A) 0.2 k/uL (1.0-4.8); Lymphocytes % (A) 2 %; MCH 33.7 pg (25.0-35.0); MCHC 31.8 g/dL (31.0-37.0); MCV 105.7 fL (80.0-100.0); Macrocytosis Slight; Mean Platelet Volume 6.6; Monocytes # (A) 0.4 k/uL (0-1.0); Monocytes % (A) 3 %; Neutrophils # (A) 13.6 k/uL (1.3-7.7); Neutrophils % (A) 95 %; RBC 4.94 m/uL (4.30-5.90); WBC 14.2 k/uL (3.8-10.6); WBC (Perox) 13.58
[2017-08-19 04:59] LABS: Anion Gap 5 mmol/L; Blood Urea Nitrogen 7 mg/dL (9-20); Calcium 8.8 mg/dL (8.4-10.2); Carbon Dioxide 30 mmol/L (22-30); Chloride 86 mmol/L (98-107); Glucose 124 mg/dL (74-99); Magnesium 1.9 mg/dL (1.6-2.3); Non-African American GFR(MDRD) >60 (>60 ml/min/1.73 sqM); Potassium 5.2 mmol/L (3.5-5.1); Sodium 121 mmol/L (137-145)
[2017-08-19] MEDS ORDERED: Magnesium Replacement Protocol 1 EACH MISC MISCELLANE PRN (05:47)
[2017-08-19] MEDS: MAGNESIUM SULFATE-D5W PMX 1 GM in DEXTROSE/WATER 1 100ML.BAG IVPB SCH ×2 (06:27→08:47)
[2017-08-19 07:35] LABS: Glucose,Whole Blood 187 mg/dL (75-99)
[2017-08-19] MEDS: INSULIN LISPRO (humaLOG) 300 UNIT/3 ML VIAL SQ SCH ×4 (07:47→21:25)
[2017-08-19] MEDS: IPRATROPIUM-ALBUTEROL 3 ML NEB INHALATION SCH ×4 (08:40→20:14)
[2017-08-19] MEDS: SYMBICORT 160-4.5 MCG INHALER INHALATION SCH ×2 (08:40→20:14)
[2017-08-19] MEDS: ENOXAPARIN 40 MG/0.4 ML SYRINGE SQ SCH (08:47)
[2017-08-19] MEDS: NICOTINE 21MG/24HR PATCH TRANSDERM SCH (08:47)
[2017-08-19] MEDS: TAMSULOSIN 0.4 MG CAP.ER.24H PO SCH (08:48)
[2017-08-19] MEDS: CITALOPRAM HYDROBROMIDE 20 MG TAB PO SCH (08:48)
[2017-08-19] MEDS: oxyCODONE ER 15 MG TAB.ER.12H PO SCH ×2 (08:55→19:47)
--- NOTE | 2017-08-19 10:09 | P.PN ---
Subjective Progress Note Date: 08/19/17 52-year-old male patient who was having difficulties with hyponatremia on outpatient basis. The patient was worked up initially through his primary care physician and later on sent to endocrinology. Yesterday he came into the emergency department knowing that his sodium level on outpatient was 110. He was feeling weak and tired. He was relatively asymptomatic. He has chronic shortness of breath cough chest tightness and wheezing related to chronic bronchitis and COPD. The patient has smoked one half pack of cigarettes a day for a total of 40 years. He had been using Symbicort on an as-needed basis for shortness of breath. The patient came into the emergency department yesterday. I reviewed the chest x-ray and there was volume loss and elevation of left hemidiaphragm and possibly left hilar mass. Based on this, I ordered a computed tomography scan of the chest that showed a 1.5 cm another infiltrate in the anterior aspect of the right upper lobe. Abnormal increased density in the left hilar area and subcarinal area and there is encasement of the left pulmonary artery and there is left bronchial adenopathy. There was also small left-sided pleural effusion. Coarse interstitial edema in the left lower lobe and mild subpleural interstitial infiltrates in the right lung base. No adrenal mass. The findings are suspicious for a primary bronchogenic cancer. In terms of his hyponatremia, the patient has received hypertonic solution saline overnight at 3 % at the rate of 20 mL an hour and the sodium level is up to 118 this morning. No headache. No nausea. No vomiting. No diarrhea. No excessive beer drinking. He has no change in mental status. He has no hemoptysis. No weight loss. No seizure activity. No altered mentation. Based on the rapid improvement in sodium level, the hypertonic saline was discontinued and the patient was started on a 0.9 saline solution at the rate of 20 mL an hour. The urine osmolality is at 403. Urine sodium is 96. On 08/19/2017 the patient is being seen in follow-up. The patient's sodium level is improved and it is up to 121. He is feeling better. His not having any major weakness and altered mental status. No seizure activity. He is acute COPD exacerbations also being treated with accommodation bronchodilators and steroids. The patient was seen by nephrology. He is on fluid restriction for now. [facility]. He has a productive cough. There is some pale yellow production. No hemoptysis at this point. Blood pressure is under better control also. Objective - Vital Signs Vital signs: Vital Signs Temp 97.9 F 08/19/17 08:00 Pulse 81 08/19/17 08:51 Resp 16 08/19/17 08:00 BP 143/82 08/19/17 08:00 Pulse Ox 93 L 08/19/17 08:00 Intake & Output 08/18/17 08/19/17 08/19/17 18:59 06:59 18:59 Intake Total 720 180 100 Output Total 2700 1250 300 Balance -1980 -1070 -200 Intake: IV 220 180 Sodium Chloride 0.9% 1, 220 180 000 ml @ 100 mls/hr IV . Q10H [facility] Rx#:[id number] Intake, IV Titration 100 Amount Magnesium Sulfate-D5w Pmx 100 1 gm In Dextrose/Water 1 100ml.bag @ 100 mls/hr IVPB Q1H [facility] Rx#: [id number] Oral 500 Output: Urine 2700 1250 300 Other: Voiding Method Urinal Urinal # Voids 0 0 - Exam Gen. appearance, comfortable likely distress on 47 oxygen nasal cannula. He is obese.Head exam was generally normal. There was no scleral icterus or corneal arcus. Mucous membranes were moist. Neck is supple and the patient has a right IJ Cordis in place. No goiter or neck masses. Lungs sounds are diminished in lung bases bilaterally otherwise clear. Sternum stable clean and intact. Left- sided chest tube is still in place.Cardiac exam revealed the PMI to be normally situated and sized. The rhythm was regular and no extrasystoles were noted during several minutes of auscultation. The first and second heart sounds were normal and physiologic splitting of the second heart sound was noted. There were no murmurs, rubs, clicks, or gallops.Abdominal exam revealed normal bowel sounds. The abdomen was soft, non-tender, and without masses, organomegaly, or appreciable enlargement of the abdominal aorta.Examination of the extremities revealed easily palpable radial, femoral and pedal pulses. There was no cyanosis , clubbing or edema. Surgical wound sites over the lower extremity these are clean and intact and LOUIS drain has been removed.Examination of the skin revealed no evidence of significant rashes, suspicious appearing nevi or other concerning lesions. Neurologically is awake and alert and exam is nonfocal. - Labs CBC & Chem 7: 08/19/17 04:19 08/19/17 04:19 Labs: Abnormal Lab Results - Last 24 Hours (Table) 08/18/17 08/18/17 08/18/17 Range/Units 11:44 14:18 17:20 WBC (3.8-10.6) k/uL MCV (80.0-100.0) fL Neutrophils # (1.3-7.7) k/uL Lymphocytes # (1.0-4.8) k/uL Sodium 118 L* (137-145) mmol/L Potassium (3.5-5.1) mmol/L Chloride 83 L (98-107) mmol/L Carbon Dioxide 32 H (22-30) mmol/L BUN 5 L (9-20) mg/dL Creatinine 0.55 L (0.66-1.25) mg/dL Glucose 185 H (74-99) mg/dL POC Glucose (mg/dL) 120 H 222 H (75-99) mg/dL 08/18/17 08/18/17 08/18/17 Range/Units 17:29 20:10 20:36 WBC (3.8-10.6) k/uL MCV (80.0-100.0) fL Neutrophils # (1.3-7.7) k/uL Lymphocytes # (1.0-4.8) k/uL Sodium 117 L* 120 L* (137-145) mmol/L Potassium (3.5-5.1) mmol/L Chloride 81 L 82 L (98-107) mmol/L Carbon Dioxide 33 H 31 H (22-30) mmol/L BUN 6 L (9-20) mg/dL Creatinine 0.59 L (0.66-1.25) mg/dL Glucose 203 H 135 H (74-99) mg/dL POC Glucose (mg/dL) 153 H (75-99) mg/dL 08/19/17 08/19/17 08/19/17 Range/Units 01:01 04:19 04:19 WBC 14.2 H (3.8-10.6) k/uL MCV 105.7 H (80.0-100.0) fL Neutrophils # 13.6 H (1.3-7.7) k/uL Lymphocytes # 0.2 L (1.0-4.8) k/uL Sodium 122 L 121 L (137-145) mmol/L Potassium 5.2 H (3.5-5.1) mmol/L Chloride 86 L 86 L (98-107) mmol/L Carbon Dioxide 32 H (22-30) mmol/L BUN 8 L 7 L (9-20) mg/dL Creatinine 0.60 L (0.66-1.25) mg/dL Glucose 103 H 124 H (74-99) mg/dL POC Glucose (mg/dL) (75-99) mg/dL 08/19/17 Range/Units 07:33 WBC (3.8-10.6) k/uL MCV (80.0-100.0) fL Neutrophils # (1.3-7.7) k/uL Lymphocytes # (1.0-4.8) k/uL Sodium (137-145) mmol/L Potassium (3.5-5.1) mmol/L Chloride (98-107) mmol/L Carbon Dioxide (22-30) mmol/L BUN (9-20) mg/dL Creatinine (0.66-1.25) mg/dL Glucose (74-99) mg/dL POC Glucose (mg/dL) 187 H (75-99) mg/dL Microbiology - Last 24 Hours (Table) 08/17/17 20:05 Blood Culture - Preliminary Blood No Growth after 24 hours Assessment and Plan Plan: Assessment 1 hyponatremia, chronic, 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 The sodium level is improved considerably and it's up to 121 2 left hilar mass with lymphadenopathy, rule out bronchogenic cancer 3 chronic bronchitis/COPD with acute exacerbation and ongoing shortness of breath 4 hoarseness probably related to a vocal cord paralysis on the left secondary to hilar mass 5 smoking 6 hypertension 7 BPH 8 history of depression maintained on Celexa for more than 2 years 9 chronic back pain maintained on OxyContin Plan Fluid restriction. Monitor sodium level. Transferred the patient to a medical floor. Continue bronchodilators. Continue steroids. Outpatient bronchoscopy. Consider addition of the meclocycline if the sodium remains low and does not respond to fluid restriction.
--- NOTE | 2017-08-19 11:56 | P.PN ---
Subjective Patient is seen in follow-up for hyponatremia. Sodium level was 110 on admission and is up to 121 this morning. He is currently resting in bed. Oral intake is good. Admits to good urine output. Denies chest pain or shortness of breath. No vomiting or diarrhea. Vital signs are stable. General: The patient appeared well nourished and normally developed. HEENT: Head exam is unremarkable. Neck is without jugular venous distension. LUNGS: Lungs are clear to auscultation and percussion. Breath sounds decreased. HEART: Rate and Rhythm are regular. First and second heart sounds normal. No murmurs, rubs or gallops. ABDOMEN: Abdominal exam reveals normal bowel sounds. Non-tender and non- distended. No evidence of peritonitis. EXTREMITITES: No clubbing, cyanosis, or edema. Objective - Vital Signs Vital signs: Vital Signs Temp 97.9 F 08/19/17 08:00 Pulse 95 08/19/17 11:00 Resp 20 08/19/17 11:00 BP 116/73 08/19/17 11:00 Pulse Ox 91 L 08/19/17 10:00 Intake & Output 08/18/17 08/19/17 08/19/17 18:59 06:59 18:59 Intake Total 720 180 100 Output Total 2700 1250 300 Balance -1980 -1070 -200 Intake: IV 220 180 Sodium Chloride 0.9% 1, 220 180 000 ml @ 100 mls/hr IV . Q10H [facility] Rx#:[id number] Intake, IV Titration 100 Amount Magnesium Sulfate-D5w Pmx 100 1 gm In Dextrose/Water 1 100ml.bag @ 100 mls/hr IVPB Q1H [facility] Rx#: [id number] Oral 500 Output: Urine 2700 1250 300 Other: Voiding Method Urinal Urinal # Voids 0 0 - Labs CBC & Chem 7: 08/19/17 04:19 08/19/17 04:19 Labs: Abnormal Lab Results - Last 24 Hours (Table) 08/18/17 08/18/17 08/18/17 Range/Units 11:44 14:18 17:20 WBC (3.8-10.6) k/uL MCV (80.0-100.0) fL Neutrophils # (1.3-7.7) k/uL Lymphocytes # (1.0-4.8) k/uL Sodium 118 L* (137-145) mmol/L Potassium (3.5-5.1) mmol/L Chloride 83 L (98-107) mmol/L Carbon Dioxide 32 H (22-30) mmol/L BUN 5 L (9-20) mg/dL Creatinine 0.55 L (0.66-1.25) mg/dL Glucose 185 H (74-99) mg/dL POC Glucose (mg/dL) 120 H 222 H (75-99) mg/dL 08/18/17 08/18/17 08/18/17 Range/Units 17:29 20:10 20:36 WBC (3.8-10.6) k/uL MCV (80.0-100.0) fL Neutrophils # (1.3-7.7) k/uL Lymphocytes # (1.0-4.8) k/uL Sodium 117 L* 120 L* (137-145) mmol/L Potassium (3.5-5.1) mmol/L Chloride 81 L 82 L (98-107) mmol/L Carbon Dioxide 33 H 31 H (22-30) mmol/L BUN 6 L (9-20) mg/dL Creatinine 0.59 L (0.66-1.25) mg/dL Glucose 203 H 135 H (74-99) mg/dL POC Glucose (mg/dL) 153 H (75-99) mg/dL 08/19/17 08/19/17 08/19/17 Range/Units 01:01 04:19 04:19 WBC 14.2 H (3.8-10.6) k/uL MCV 105.7 H (80.0-100.0) fL Neutrophils # 13.6 H (1.3-7.7) k/uL Lymphocytes # 0.2 L (1.0-4.8) k/uL Sodium 122 L 121 L (137-145) mmol/L Potassium 5.2 H (3.5-5.1) mmol/L Chloride 86 L 86 L (98-107) mmol/L Carbon Dioxide 32 H (22-30) mmol/L BUN 8 L 7 L (9-20) mg/dL Creatinine 0.60 L (0.66-1.25) mg/dL Glucose 103 H 124 H (74-99) mg/dL POC Glucose (mg/dL) (75-99) mg/dL 08/19/17 Range/Units 07:33 WBC (3.8-10.6) k/uL MCV (80.0-100.0) fL Neutrophils # (1.3-7.7) k/uL Lymphocytes # (1.0-4.8) k/uL Sodium (137-145) mmol/L Potassium (3.5-5.1) mmol/L Chloride (98-107) mmol/L Carbon Dioxide (22-30) mmol/L BUN (9-20) mg/dL Creatinine (0.66-1.25) mg/dL Glucose (74-99) mg/dL POC Glucose (mg/dL) 187 H (75-99) mg/dL Microbiology - Last 24 Hours (Table) 08/17/17 20:05 Blood Culture - Preliminary Blood No Growth after 24 hours Assessment and Plan Plan: Assessment: #1. Hyponatremia. Currently appears euvolemic in nature. 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 Sodium level was 109 on admission and is up to 121 this morning. He is currently off all IV fluids. #2. Lung tumor, being followed by pulmonology. Bronchoscopy down the road. #3. Benign hypertension. Controlled. Plan: Remains off all IV fluids at this time. Recheck sodium level now. Avoid rapid correction. Maintain 1.5 L fluid restriction.
[2017-08-19 12:51] LABS: Glucose,Whole Blood 167 mg/dL (75-99)
[2017-08-19 14:31] LABS: Uric Acid 2.7 mg/dL (3.5-8.5)
[2017-08-19] MEDS: FUROSEMIDE 20 MG TAB PO SCH (14:58)
[2017-08-19] MEDS: SODIUM CHLORIDE TAB 1 GM TAB PO SCH ×2 (14:58→21:26)
[2017-08-19 17:26] LABS: Glucose,Whole Blood 160 mg/dL (75-99)
[2017-08-19 20:47] LABS: Glucose,Whole Blood 159 mg/dL (75-99)
--- NOTE | 2017-08-20 00:49 | P.PN ---
Subjective Progress Note Date: 08/19/17 Principal diagnosis: Hyponatremia 50-year-old male with a known history of COPD was admitted to the hospital due to severe hyponatremia. Patient is having hyponatremia for the last 2 months and is being managed by primary care physician. Patient was found to have sodium level of 110 and was advised to come to hospital. Patient was given hypertonic saline and sodium level improved to [address] of the chest was done and suspected to have bronchogenic carcinoma and pleural effusion. Nephrology and pulmonary was consulted,. He denies any vomiting or diarrhea. Oral intake has been good. Denies chest pain or shortness of breath. No evidence of urinary retention. He is also maintained on Celexa which he has been on for years. Patient denied any fever or chills. No recent illnesses. 08/19/2017 Patient denied any new complaints today. Sodium level improved to 121 with fluid restriction. Patient is being transferred to general medical floor today. Denied any chest pain or short of breath. Bronchoscopic biopsy was clinically improved. Possibly as an outpatient. Objective - Vital Signs Vital signs: Vital Signs Temp 98.5 F 08/19/17 15:50 Pulse 80 08/19/17 20:28 Resp 18 08/19/17 15:50 BP 131/65 08/19/17 15:50 Pulse Ox 91 L 08/19/17 15:50 Intake & Output 08/19/17 08/19/17 08/20/17 06:59 18:59 06:59 Intake Total 180 580 240 Output Total 1250 1020 Balance -1070 -440 240 Intake: IV 180 Sodium Chloride 0.9% 1, 180 000 ml @ 100 mls/hr IV . Q10H [facility] Rx#:[id number] Intake, IV Titration 100 Amount Magnesium Sulfate-D5w Pmx 100 1 gm In Dextrose/Water 1 100ml.bag @ 100 mls/hr IVPB Q1H [facility] Rx#: [id number] Oral 480 240 Output: Urine 1250 920 Emesis 100 Other: Voiding Method Urinal Urinal # Voids 0 1 - Exam PHYSICAL EXAMINATION: Patient is lying in the bed comfortably, no acute distress, awake alert and oriented.. HEENT: Normocephalic. Neck is supple. Pupils reactive. Nostrils clear. Oral cavity is moist. Ears reveal no drainage. Neck reveals no JVD, carotid bruits, or thyromegaly. CHEST EXAMINATION: Trachea is central. Symmetrical expansion. Lung brandt clear to auscultation and percussion. CARDIAC: Normal S1, S2 with no gallops. No murmurs ABDOMEN: Soft. Bowel sounds normal. No organomegaly. No abdominal bruits. Extremities: reveal no edema. No clubbing or cyanosis Neurologically awake, alert, oriented x3 with well-coordinated movements. No focal deficits noted Skin: No rash or skin lesions. Psychiatric: Operative. Nonsuicidal Musculoskeletal: No joint swelling or deformity. Normal range of motion. - Labs CBC & Chem 7: 08/19/17 04:19 08/19/17 19:37 Labs: Abnormal Lab Results - Last 24 Hours (Table) 08/19/17 08/19/17 08/19/17 Range/Units 01:01 04:19 04:19 WBC 14.2 H (3.8-10.6) k/uL MCV 105.7 H (80.0-100.0) fL Neutrophils # 13.6 H (1.3-7.7) k/uL Lymphocytes # 0.2 L (1.0-4.8) k/uL Sodium 122 L 121 L (137-145) mmol/L Potassium 5.2 H (3.5-5.1) mmol/L Chloride 86 L 86 L (98-107) mmol/L Carbon Dioxide 32 H (22-30) mmol/L BUN 8 L 7 L (9-20) mg/dL Creatinine 0.60 L (0.66-1.25) mg/dL Glucose 103 H 124 H (74-99) mg/dL POC Glucose (mg/dL) (75-99) mg/dL Uric Acid (3.5-8.5) mg/dL 08/19/17 08/19/17 08/19/17 Range/Units 07:33 11:47 11:47 WBC (3.8-10.6) k/uL MCV (80.0-100.0) fL Neutrophils # (1.3-7.7) k/uL Lymphocytes # (1.0-4.8) k/uL Sodium 120 L* (137-145) mmol/L Potassium (3.5-5.1) mmol/L Chloride (98-107) mmol/L Carbon Dioxide (22-30) mmol/L BUN (9-20) mg/dL Creatinine (0.66-1.25) mg/dL Glucose (74-99) mg/dL POC Glucose (mg/dL) 187 H (75-99) mg/dL Uric Acid 2.7 L (3.5-8.5) mg/dL 08/19/17 08/19/17 08/19/17 Range/Units 12:44 17:10 19:37 WBC (3.8-10.6) k/uL MCV (80.0-100.0) fL Neutrophils # (1.3-7.7) k/uL Lymphocytes # (1.0-4.8) k/uL Sodium 121 L (137-145) mmol/L Potassium (3.5-5.1) mmol/L Chloride (98-107) mmol/L Carbon Dioxide (22-30) mmol/L BUN (9-20) mg/dL Creatinine (0.66-1.25) mg/dL Glucose (74-99) mg/dL POC Glucose (mg/dL) 167 H 160 H (75-99) mg/dL Uric Acid (3.5-8.5) mg/dL 08/19/17 Range/Units 20:33 WBC (3.8-10.6) k/uL MCV (80.0-100.0) fL Neutrophils # (1.3-7.7) k/uL Lymphocytes # (1.0-4.8) k/uL Sodium (137-145) mmol/L Potassium (3.5-5.1) mmol/L Chloride (98-107) mmol/L Carbon Dioxide (22-30) mmol/L BUN (9-20) mg/dL Creatinine (0.66-1.25) mg/dL Glucose (74-99) mg/dL POC Glucose (mg/dL) 159 H (75-99) mg/dL Uric Acid (3.5-8.5) mg/dL Microbiology - Last 24 Hours (Table) 08/17/17 20:05 Blood Culture - Preliminary Blood No Growth after 24 hours Assessment and Plan Plan: #1 hyponatremia likely due to SIADH with suspicion for left hilar bronchogenic cancer as well as excessive free water intake. Improved to 121 #2 newly diagnosed left hilar mass/bronchogenic cancer #3 COPD acute exacerbation #4 hypertension #5 nicotine addiction #6 depression #7 chronic back pain Plan: Patient was initially admitted with sodium level of 110 and which is improved to 118--121 with hypertonic saline. Patient will be kept on fluid restriction and hold IV fluids. Continue to follow sodium level. Continue with the steroids and breathing treatments for COPD exacerbation. Pulmonary and nephrology is following this patient. Further workup for bronchogenic carcinoma when clinically stable. Will follow closely prognosis is guarded.
[2017-08-20] MEDS: methylPREDNISolone SOD SUCCI 125 MG/2 ML VIAL IV SCH ×4 (03:10→20:24)
[2017-08-20 07:24] LABS: Glucose,Whole Blood 128 mg/dL (75-99)
[2017-08-20 07:49] LABS: Basophils % (A) 0 %; CHCM 33.1; Eosinophils % (A) 0 %; HDW 2.26; HGB 15.4 gm/dL (13.0-17.5); Luc # (Auto) 0.07; Luc % (Auto) 0; Lymphocytes # (A) 0.2 k/uL (1.0-4.8); Lymphocytes % (A) 1 %; MCH 34.7 pg (25.0-35.0); MCHC 33.6 g/dL (31.0-37.0); MCV 103.3 fL (80.0-100.0); Macrocytosis Slight; Mean Platelet Volume 6.2; Monocytes # (A) 0.5 k/uL (0-1.0); Monocytes % (A) 3 %; Neutrophils # (A) 15.1 k/uL (1.3-7.7); Neutrophils % (A) 95 %; RBC 4.45 m/uL (4.30-5.90); RDW 12.1 % (11.5-15.5); WBC 15.9 k/uL (3.8-10.6); WBC (Perox) 16.41
[2017-08-20] MEDS: SYMBICORT 160-4.5 MCG INHALER INHALATION SCH ×2 (07:53→19:06)
[2017-08-20] MEDS: IPRATROPIUM-ALBUTEROL 3 ML NEB INHALATION SCH ×4 (07:53→19:06)
[2017-08-20 08:06] LABS: Anion Gap 6 mmol/L; Blood Urea Nitrogen 7 mg/dL (9-20); Calcium 8.7 mg/dL (8.4-10.2); Carbon Dioxide 32 mmol/L (22-30); Chloride 86 mmol/L (98-107); Glucose 122 mg/dL (74-99); Magnesium 1.9 mg/dL (1.6-2.3); Non-African American GFR(MDRD) >60 (>60 ml/min/1.73 sqM); Potassium 4.5 mmol/L (3.5-5.1); Sodium 124 mmol/L (137-145)
[2017-08-20] MEDS: oxyCODONE ER 15 MG TAB.ER.12H PO SCH ×2 (08:34→20:25)
[2017-08-20] MEDS: NICOTINE 21MG/24HR PATCH TRANSDERM SCH (08:36)
[2017-08-20] MEDS: INSULIN LISPRO (humaLOG) 300 UNIT/3 ML VIAL SQ SCH ×4 (08:37→20:40)
[2017-08-20] MEDS: CITALOPRAM HYDROBROMIDE 20 MG TAB PO SCH (08:38)
[2017-08-20] MEDS: SODIUM CHLORIDE TAB 1 GM TAB PO SCH ×3 (08:38→20:26)
[2017-08-20] MEDS: FUROSEMIDE 20 MG TAB PO SCH ×2 (08:38→16:02)
[2017-08-20] MEDS: ENOXAPARIN 40 MG/0.4 ML SYRINGE SQ SCH (08:39)
[2017-08-20] MEDS: TAMSULOSIN 0.4 MG CAP.ER.24H PO SCH (08:39)
[2017-08-20 09:55] LABS: Manual Review Performed
--- NOTE | 2017-08-20 11:05 | P.PN ---
<Lulu Carreno - Last Filed: 08/20/17 11:00> Subjective Progress Note Date: 08/20/17 52-year-old male patient who was having difficulties with hyponatremia on outpatient basis. The patient was worked up initially through his primary care physician and later on sent to endocrinology. Yesterday he came into the emergency department knowing that his sodium level on outpatient was 110. He was feeling weak and tired. He was relatively asymptomatic. He has chronic shortness of breath cough chest tightness and wheezing related to chronic bronchitis and COPD. The patient has smoked one half pack of cigarettes a day for a total of 40 years. He had been using Symbicort on an as-needed basis for shortness of breath. The patient came into the emergency department yesterday. I reviewed the chest x-ray and there was volume loss and elevation of left hemidiaphragm and possibly left hilar mass. Based on this, I ordered a computed tomography scan of the chest that showed a 1.5 cm another infiltrate in the anterior aspect of the right upper lobe. Abnormal increased density in the left hilar area and subcarinal area and there is encasement of the left pulmonary artery and there is left bronchial adenopathy. There was also small left-sided pleural effusion. Coarse interstitial edema in the left lower lobe and mild subpleural interstitial infiltrates in the right lung base. No adrenal mass. The findings are suspicious for a primary bronchogenic cancer. In terms of his hyponatremia, the patient has received hypertonic solution saline overnight at 3 % at the rate of 20 mL an hour and the sodium level is up to 118 this morning. No headache. No nausea. No vomiting. No diarrhea. No excessive beer drinking. He has no change in mental status. He has no hemoptysis. No weight loss. No seizure activity. No altered mentation. Based on the rapid improvement in sodium level, the hypertonic saline was discontinued and the patient was started on a 0.9 saline solution at the rate of 20 mL an hour. The urine osmolality is at 403. Urine sodium is 96. On 08/19/2017 the patient is being seen in follow-up. The patient's sodium level is improved and it is up to 121. He is feeling better. His not having any major weakness and altered mental status. No seizure activity. He is acute COPD exacerbations also being treated with accommodation bronchodilators and steroids. The patient was seen by nephrology. He is on fluid restriction for now. [facility]. He has a productive cough. There is some pale yellow production. No hemoptysis at this point. Blood pressure is under better control also. The patient was seen again today 08/20/2017 in follow-up on the regular medical floor. He is awake and alert in no acute distress. He is feeling better today as compared to yesterday. His sodium is up to 124. He still has some bilateral end expiratory wheezing. Some shortness of breath. He is quite anxious to go home. The plan will be for bronchoscopy and biopsy in the outpatient setting once stabilized. He is still requiring 4 L/m per nasal cannula to maintain O2 saturations in the 90s. He'll be set up for home oxygen if needed along with a nebulizer for updraft treatments. He's been afebrile. Hemodynamically stable. Objective - Vital Signs Vital signs: Vital Signs Temp 98.5 F 08/20/17 08:30 Pulse 97 08/20/17 08:30 Resp 17 08/20/17 08:30 BP 106/68 08/20/17 08:30 Pulse Ox 92 L 08/19/17 23:00 Intake & Output 08/19/17 08/20/17 08/20/17 18:59 06:59 18:59 Intake Total 580 960 Output Total 1020 2950 400 Balance -440 -1989 Intake: Intake, IV Titration 100 Amount Magnesium Sulfate-D5w Pmx 100 1 gm In Dextrose/Water 1 100ml.bag @ 100 mls/hr IVPB Q1H [facility] Rx#: [id number] Oral 480 960 Output: Urine 920 2950 300 Emesis 100 100 Other: Voiding Method Urinal Urinal Urinal # Voids 1 6 1 - Exam GENERAL EXAM: Alert, active, comfortable in no apparent distress. HEAD: Normocephalic. EYES: Normal reaction of pupils, equal size. NOSE: Clear with pink turbinates. THROAT: No erythema or exudates. NECK: No masses, no JVD. CHEST: No chest wall deformity. LUNGS: Equal air entry with bilateral end expiratory wheeze. Diminished. wheeze, rhonchi or dullness. CVS: S1 and S2 normal with no audible murmur, regular rhythm. ABDOMEN: No hepatosplenomegaly, normal bowel sounds, no guarding or rigidity. SPINE: No scoliosis or deformity SKIN: No rashes CENTRAL NERVOUS SYSTEM: No focal deficits, tone is normal in all 4 extremities. EXTREMITIES: There is no peripheral edema. No clubbing, no cyanosis. Peripheral pulses are intact. - Labs CBC & Chem 7: 08/20/17 07:13 08/20/17 07:13 Labs: Abnormal Lab Results - Last 24 Hours (Table) 08/19/17 08/19/17 08/19/17 Range/Units 11:47 11:47 12:44 WBC (3.8-10.6) k/uL MCV (80.0-100.0) fL Neutrophils # (1.3-7.7) k/uL Lymphocytes # (1.0-4.8) k/uL Sodium 120 L* (137-145) mmol/L Chloride (98-107) mmol/L Carbon Dioxide (22-30) mmol/L BUN (9-20) mg/dL Creatinine (0.66-1.25) mg/dL Glucose (74-99) mg/dL POC Glucose (mg/dL) 167 H (75-99) mg/dL Uric Acid 2.7 L (3.5-8.5) mg/dL 08/19/17 08/19/17 08/19/17 Range/Units 17:10 19:37 20:33 WBC (3.8-10.6) k/uL MCV (80.0-100.0) fL Neutrophils # (1.3-7.7) k/uL Lymphocytes # (1.0-4.8) k/uL Sodium 121 L (137-145) mmol/L Chloride (98-107) mmol/L Carbon Dioxide (22-30) mmol/L BUN (9-20) mg/dL Creatinine (0.66-1.25) mg/dL Glucose (74-99) mg/dL POC Glucose (mg/dL) 160 H 159 H (75-99) mg/dL Uric Acid (3.5-8.5) mg/dL 08/20/17 08/20/17 08/20/17 Range/Units 07:13 07:13 07:22 WBC 15.9 H (3.8-10.6) k/uL MCV 103.3 H (80.0-100.0) fL Neutrophils # 15.1 H (1.3-7.7) k/uL Lymphocytes # 0.2 L (1.0-4.8) k/uL Sodium 124 L (137-145) mmol/L Chloride 86 L (98-107) mmol/L Carbon Dioxide 32 H (22-30) mmol/L BUN 7 L (9-20) mg/dL Creatinine 0.57 L (0.66-1.25) mg/dL Glucose 122 H (74-99) mg/dL POC Glucose (mg/dL) 128 H (75-99) mg/dL Uric Acid (3.5-8.5) mg/dL Microbiology - Last 24 Hours (Table) 08/17/17 20:05 Blood Culture - Preliminary Blood No Growth after 48 hours Assessment and Plan Plan: Assessment 1 hyponatremia, chronic, 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 The sodium level is improved considerably and it's up to 124 2 left hilar mass with lymphadenopathy, rule out bronchogenic cancer 3 chronic bronchitis/COPD with acute exacerbation and ongoing shortness of breath 4 hoarseness probably related to a vocal cord paralysis on the left secondary to hilar mass 5 smoking 6 hypertension 7 BPH 8 history of depression maintained on Celexa for more than 2 years 9 chronic back pain maintained on OxyContin Plan: The patient was seen and evaluated by Dr. Benoit. He is improved from the pulmonary standpoint but not quite back to his baseline. He is still requiring 4 L/m per nasal cannula. We'll continue with his current medications. The patient is quite anxious to go home but probably would benefit from another 24 hours of inpatient treatment. After discharge however he will follow-up in our office in 1 week. We'll plan for bronchoscopy with biopsy at that time. Nephrology remains on the case regarding the hyponatremia. We'll continue with his current medications. He'll also be set up for a nebulizer for updraft treatments at home. Probable home oxygen. Discharge planning is in place. <Diego Benoit - Last Filed: 08/20/17 11:09> Objective - Vital Signs Vital signs: Vital Signs Temp 98.5 F 08/20/17 08:30 Pulse 97 08/20/17 08:30 Resp 17 08/20/17 08:30 BP 106/68 08/20/17 08:30 Pulse Ox 92 L 08/19/17 23:00 Intake & Output 08/19/17 08/20/17 08/20/17 18:59 06:59 18:59 Intake Total 580 960 237 Output Total 1020 2950 400 Balance -440 Intake: Intake, IV Titration 100 Amount Magnesium Sulfate-D5w Pmx 100 1 gm In Dextrose/Water 1 100ml.bag @ 100 mls/hr IVPB Q1H [facility] Rx#: [id number] Oral 480 960 237 Output: Urine 920 2950 300 Emesis 100 100 Other: Voiding Method Urinal Urinal Urinal # Voids 1 6 1 - Labs CBC & Chem 7: 08/20/17 07:13 08/20/17 07:13 Labs: Abnormal Lab Results - Last 24 Hours (Table) 08/19/17 08/19/17 08/19/17 Range/Units 11:47 11:47 12:44 WBC (3.8-10.6) k/uL MCV (80.0-100.0) fL Neutrophils # (1.3-7.7) k/uL Lymphocytes # (1.0-4.8) k/uL Sodium 120 L* (137-145) mmol/L Chloride (98-107) mmol/L Carbon Dioxide (22-30) mmol/L BUN (9-20) mg/dL Creatinine (0.66-1.25) mg/dL Glucose (74-99) mg/dL POC Glucose (mg/dL) 167 H (75-99) mg/dL Uric Acid 2.7 L (3.5-8.5) mg/dL 08/19/17 08/19/17 08/19/17 Range/Units 17:10 19:37 20:33 WBC (3.8-10.6) k/uL MCV (80.0-100.0) fL Neutrophils # (1.3-7.7) k/uL Lymphocytes # (1.0-4.8) k/uL Sodium 121 L (137-145) mmol/L Chloride (98-107) mmol/L Carbon Dioxide (22-30) mmol/L BUN (9-20) mg/dL Creatinine (0.66-1.25) mg/dL Glucose (74-99) mg/dL POC Glucose (mg/dL) 160 H 159 H (75-99) mg/dL Uric Acid (3.5-8.5) mg/dL 08/20/17 08/20/17 08/20/17 Range/Units 07:13 07:13 07:22 WBC 15.9 H (3.8-10.6) k/uL MCV 103.3 H (80.0-100.0) fL Neutrophils # 15.1 H (1.3-7.7) k/uL Lymphocytes # 0.2 L (1.0-4.8) k/uL Sodium 124 L (137-145) mmol/L Chloride 86 L (98-107) mmol/L Carbon Dioxide 32 H (22-30) mmol/L BUN 7 L (9-20) mg/dL Creatinine 0.57 L (0.66-1.25) mg/dL Glucose 122 H (74-99) mg/dL POC Glucose (mg/dL) 128 H (75-99) mg/dL Uric Acid (3.5-8.5) mg/dL Microbiology - Last 24 Hours (Table) 08/17/17 20:05 Blood Culture - Preliminary Blood No Growth after 48 hours Assessment and Plan Plan: This is a joint evaluation along with the nurse practitioner. I agree on the above-mentioned information. I'm was to perform an outpatient bronchoscopy on this patient. Monitor sodium level. Arrange for home nebulizer. He may need another 24 hours of inpatient treatment.
--- NOTE | 2017-08-20 11:15 | P.PN ---
Subjective Patient is seen in follow-up for hyponatremia. Sodium level was 110 on admission and is up to 124 this morning. He is currently resting in bed. Oral intake is good. Admits to good urine output. Denies chest pain or shortness of breath. No vomiting or diarrhea. He is eager to go home. Vital signs are stable. General: The patient appeared well nourished and normally developed. HEENT: Head exam is unremarkable. Neck is without jugular venous distension. LUNGS: Lungs are clear to auscultation and percussion. Breath sounds decreased. HEART: Rate and Rhythm are regular. First and second heart sounds normal. No murmurs, rubs or gallops. ABDOMEN: Abdominal exam reveals normal bowel sounds. Non-tender and non- distended. No evidence of peritonitis. EXTREMITITES: No clubbing, cyanosis, or edema. Objective - Vital Signs Vital signs: Vital Signs Temp 98.5 F 08/20/17 08:30 Pulse 97 08/20/17 08:30 Resp 17 08/20/17 08:30 BP 106/68 08/20/17 08:30 Pulse Ox 92 L 08/19/17 23:00 Intake & Output 08/19/17 08/20/17 08/20/17 18:59 06:59 18:59 Intake Total 580 960 237 Output Total 1020 2950 400 Balance - Intake: Intake, IV Titration 100 Amount Magnesium Sulfate-D5w Pmx 100 1 gm In Dextrose/Water 1 100ml.bag @ 100 mls/hr IVPB Q1H [facility] Rx#: [id number] Oral 480 960 237 Output: Urine 920 2950 300 Emesis 100 100 Other: Voiding Method Urinal Urinal Urinal # Voids 1 6 1 - Labs CBC & Chem 7: 08/20/17 07:13 08/20/17 07:13 Labs: Abnormal Lab Results - Last 24 Hours (Table) 08/19/17 08/19/17 08/19/17 Range/Units 11:47 11:47 12:44 WBC (3.8-10.6) k/uL MCV (80.0-100.0) fL Neutrophils # (1.3-7.7) k/uL Lymphocytes # (1.0-4.8) k/uL Sodium 120 L* (137-145) mmol/L Chloride (98-107) mmol/L Carbon Dioxide (22-30) mmol/L BUN (9-20) mg/dL Creatinine (0.66-1.25) mg/dL Glucose (74-99) mg/dL POC Glucose (mg/dL) 167 H (75-99) mg/dL Uric Acid 2.7 L (3.5-8.5) mg/dL 08/19/17 08/19/17 08/19/17 Range/Units 17:10 19:37 20:33 WBC (3.8-10.6) k/uL MCV (80.0-100.0) fL Neutrophils # (1.3-7.7) k/uL Lymphocytes # (1.0-4.8) k/uL Sodium 121 L (137-145) mmol/L Chloride (98-107) mmol/L Carbon Dioxide (22-30) mmol/L BUN (9-20) mg/dL Creatinine (0.66-1.25) mg/dL Glucose (74-99) mg/dL POC Glucose (mg/dL) 160 H 159 H (75-99) mg/dL Uric Acid (3.5-8.5) mg/dL 08/20/17 08/20/17 08/20/17 Range/Units 07:13 07:13 07:22 WBC 15.9 H (3.8-10.6) k/uL MCV 103.3 H (80.0-100.0) fL Neutrophils # 15.1 H (1.3-7.7) k/uL Lymphocytes # 0.2 L (1.0-4.8) k/uL Sodium 124 L (137-145) mmol/L Chloride 86 L (98-107) mmol/L Carbon Dioxide 32 H (22-30) mmol/L BUN 7 L (9-20) mg/dL Creatinine 0.57 L (0.66-1.25) mg/dL Glucose 122 H (74-99) mg/dL POC Glucose (mg/dL) 128 H (75-99) mg/dL Uric Acid (3.5-8.5) mg/dL Microbiology - Last 24 Hours (Table) 08/17/17 20:05 Blood Culture - Preliminary Blood No Growth after 48 hours Assessment and Plan Plan: Assessment: #1. Hyponatremia. Currently appears euvolemic in nature. 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 Sodium level was 109 on admission and is up to 124 this morning. He is currently off all IV fluids. #2. Lung tumor, being followed by pulmonology. Bronchoscopy down the road. #3. Benign hypertension. Controlled. Plan: Remains off all IV fluids at this time. Recheck sodium level at 5 PM today. Avoid rapid correction. Maintain 1.5 L fluid restriction. Continue Lasix 20 mg twice daily. Continue salt tabs 1 g 3 times daily. Encourage oral intake. Ensure 3 times daily has been added as well.
[2017-08-20 11:32] LABS: Glucose,Whole Blood 178 mg/dL (75-99)
--- NOTE | 2017-08-20 11:40 | P.PN ---
Subjective 50-year-old male with a known history of COPD was admitted to the hospital due to severe hyponatremia. Patient is having hyponatremia for the last 2 months and is being managed by primary care physician. Patient was found to have sodium level of 110 and was advised to come to hospital. Patient was given hypertonic saline and sodium level improved to [address] of the chest was done and suspected to have bronchogenic carcinoma and pleural effusion. Nephrology and pulmonary was consulted,. He denies any vomiting or diarrhea. Oral intake has been good. Denies chest pain or shortness of breath. No evidence of urinary retention. He is also maintained on Celexa which he has been on for years. Patient denied any fever or chills. No recent illnesses. 08/19/2017 Patient denied any new complaints today. Sodium level improved to 121 with fluid restriction. Patient is being transferred to general medical floor today. Denied any chest pain or short of breath. Bronchoscopic biopsy was clinically improved. Possibly as an outpatient. 08/20/2017 patient does have significant wheezing today and patient is an 4 L of onset and we are trying to wean it down and nephrology is recommending one more day of hospitalization patient wanted to go home today. Constitutional: Denied any fatigue denied any fever. Cardio vascular: denied any chest pain, palpitations Gastrointestinal denied any nausea vomiting Pulmonary: Denied any shortness of breath cough Neurologic denied any new focal deficits Objective - Vital Signs Vital signs: Vital Signs Temp 98.5 F 08/20/17 08:30 Pulse 80 08/20/17 11:32 Resp 17 08/20/17 08:30 BP 106/68 08/20/17 08:30 Pulse Ox 92 L 08/19/17 23:00 Intake & Output 08/19/17 08/20/17 08/20/17 18:59 06:59 18:59 Intake Total 580 960 237 Output Total 1020 2950 400 Balance - Intake: Intake, IV Titration 100 Amount Magnesium Sulfate-D5w Pmx 100 1 gm In Dextrose/Water 1 100ml.bag @ 100 mls/hr IVPB Q1H [facility] Rx#: [id number] Oral 480 960 237 Output: Urine 920 2950 300 Emesis 100 100 Other: Voiding Method Urinal Urinal Urinal # Voids 1 6 1 - Exam Patient is lying in the bed comfortably, no acute distress, awake alert and oriented.. HEENT: Normocephalic. Neck is supple. Pupils reactive. Nostrils clear. Oral cavity is moist. Ears reveal no drainage. Neck reveals no JVD, carotid bruits, or thyromegaly. CHEST EXAMINATION: Trachea is central. Symmetrical expansion. Minimal expiratory wheezing on exam CARDIAC: Normal S1, S2 with no gallops. No murmurs ABDOMEN: Soft. Bowel sounds normal. No organomegaly. No abdominal bruits. Extremities: reveal no edema. No clubbing or cyanosis Neurologically awake, alert, oriented x3 with well-coordinated movements. No focal deficits noted Skin: No rash or skin lesions. Psychiatric: Operative. Nonsuicidal Musculoskeletal: No joint swelling or deformity. Normal range of motion. - Labs CBC & Chem 7: 08/20/17 07:13 08/20/17 07:13 Labs: Abnormal Lab Results - Last 24 Hours (Table) 08/19/17 08/19/17 08/19/17 Range/Units 11:47 11:47 12:44 WBC (3.8-10.6) k/uL MCV (80.0-100.0) fL Neutrophils # (1.3-7.7) k/uL Lymphocytes # (1.0-4.8) k/uL Sodium 120 L* (137-145) mmol/L Chloride (98-107) mmol/L Carbon Dioxide (22-30) mmol/L BUN (9-20) mg/dL Creatinine (0.66-1.25) mg/dL Glucose (74-99) mg/dL POC Glucose (mg/dL) 167 H (75-99) mg/dL Uric Acid 2.7 L (3.5-8.5) mg/dL 08/19/17 08/19/17 08/19/17 Range/Units 17:10 19:37 20:33 WBC (3.8-10.6) k/uL MCV (80.0-100.0) fL Neutrophils # (1.3-7.7) k/uL Lymphocytes # (1.0-4.8) k/uL Sodium 121 L (137-145) mmol/L Chloride (98-107) mmol/L Carbon Dioxide (22-30) mmol/L BUN (9-20) mg/dL Creatinine (0.66-1.25) mg/dL Glucose (74-99) mg/dL POC Glucose (mg/dL) 160 H 159 H (75-99) mg/dL Uric Acid (3.5-8.5) mg/dL 08/20/17 08/20/17 08/20/17 Range/Units 07:13 07:13 07:22 WBC 15.9 H (3.8-10.6) k/uL MCV 103.3 H (80.0-100.0) fL Neutrophils # 15.1 H (1.3-7.7) k/uL Lymphocytes # 0.2 L (1.0-4.8) k/uL Sodium 124 L (137-145) mmol/L Chloride 86 L (98-107) mmol/L Carbon Dioxide 32 H (22-30) mmol/L BUN 7 L (9-20) mg/dL Creatinine 0.57 L (0.66-1.25) mg/dL Glucose 122 H (74-99) mg/dL POC Glucose (mg/dL) 128 H (75-99) mg/dL Uric Acid (3.5-8.5) mg/dL 08/20/17 Range/Units 11:29 WBC (3.8-10.6) k/uL MCV (80.0-100.0) fL Neutrophils # (1.3-7.7) k/uL Lymphocytes # (1.0-4.8) k/uL Sodium (137-145) mmol/L Chloride (98-107) mmol/L Carbon Dioxide (22-30) mmol/L BUN (9-20) mg/dL Creatinine (0.66-1.25) mg/dL Glucose (74-99) mg/dL POC Glucose (mg/dL) 178 H (75-99) mg/dL Uric Acid (3.5-8.5) mg/dL Microbiology - Last 24 Hours (Table) 08/17/17 20:05 Blood Culture - Preliminary Blood No Growth after 48 hours Assessment and Plan Plan: #1 hyponatremia likely due to SIADH with suspicion for left hilar bronchogenic cancer as well as excessive free water intake. 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 Continue to follow sodium level. Continue with the steroids and breathing treatments for COPD exacerbation. Pulmonary and nephrology is following this patient. Further workup for bronchogenic carcinoma when clinically stable. Will follow closely prognosis is guarded. Weaned on oxygen possibility of discharge tomorrow if he is clinically doing well
[2017-08-20 17:31] LABS: Glucose,Whole Blood 157 mg/dL (75-99)
[2017-08-20 20:50] LABS: Glucose,Whole Blood 189 mg/dL (75-99)
[2017-08-21] MEDS: methylPREDNISolone SOD SUCCI 125 MG/2 ML VIAL IV SCH ×2 (04:00→08:22)
[2017-08-21 07:07] LABS: Anion Gap 8 mmol/L; Blood Urea Nitrogen 7 mg/dL (9-20); Calcium 9.1 mg/dL (8.4-10.2); Carbon Dioxide 34 mmol/L (22-30); Chloride 85 mmol/L (98-107); Glucose 148 mg/dL (74-99); Non-African American GFR(MDRD) >60 (>60 ml/min/1.73 sqM); Potassium 4.4 mmol/L (3.5-5.1); Sodium 127 mmol/L (137-145)
[2017-08-21] MEDS: SYMBICORT 160-4.5 MCG INHALER INHALATION SCH (07:26)
[2017-08-21] MEDS: IPRATROPIUM-ALBUTEROL 3 ML NEB INHALATION SCH ×2 (07:26→11:52)
[2017-08-21 07:38] VITALS: BP 165/94; RESP 20; TEMP 98.5
[2017-08-21 07:40] LABS: Glucose,Whole Blood 143 mg/dL (75-99)
[2017-08-21 08:02] VITALS: PULSE 88
[2017-08-21] MEDS: ENOXAPARIN 40 MG/0.4 ML SYRINGE SQ SCH (08:22)
[2017-08-21] MEDS: SODIUM CHLORIDE TAB 1 GM TAB PO SCH (08:22)
[2017-08-21] MEDS: NICOTINE 21MG/24HR PATCH TRANSDERM SCH (08:22)
[2017-08-21] MEDS: INSULIN LISPRO (humaLOG) 300 UNIT/3 ML VIAL SQ SCH ×2 (08:23→13:15)
[2017-08-21] MEDS: FUROSEMIDE 20 MG TAB PO SCH (08:23)
[2017-08-21] MEDS: TAMSULOSIN 0.4 MG CAP.ER.24H PO SCH (08:23)
[2017-08-21] MEDS: CITALOPRAM HYDROBROMIDE 20 MG TAB PO SCH (08:23)
[2017-08-21] MEDS: oxyCODONE ER 15 MG TAB.ER.12H PO SCH (08:28)
--- NOTE | 2017-08-21 10:30 | P.PN ---
Subjective Patient is seen in follow-up for hyponatremia. Sodium level was 110 on admission and is up to 127 this morning. He is currently resting in bed. Oral intake is good. Admits to good urine output. Denies chest pain or shortness of breath. No vomiting or diarrhea. He is eager to go home. No active complaints at this time. He is off oxygen and breathing comfortably on room air. Vital signs are stable. General: The patient appeared well nourished and normally developed. HEENT: Head exam is unremarkable. Neck is without jugular venous distension. LUNGS: Lungs are clear to auscultation and percussion. Breath sounds decreased. HEART: Rate and Rhythm are regular. First and second heart sounds normal. No murmurs, rubs or gallops. ABDOMEN: Abdominal exam reveals normal bowel sounds. Non-tender and non- distended. No evidence of peritonitis. EXTREMITITES: No clubbing, cyanosis, or edema. Objective - Vital Signs Vital signs: Vital Signs Temp 98.5 F 08/21/17 07:00 Pulse 88 08/21/17 07:37 Resp 20 08/21/17 08:20 BP 165/94 08/21/17 07:00 Pulse Ox 93 L 08/21/17 07:00 Intake & Output 08/20/17 08/21/17 08/21/17 18:59 06:59 18:59 Intake Total 1074 714 240 Output Total 400 2375 Balance 674 -1661 240 Intake: Oral 237 714 240 Other 837 Output: Urine 300 2375 Emesis 100 Other: Voiding Method Urinal Urinal Urinal # Voids 1 2 - Labs CBC & Chem 7: 08/20/17 07:13 08/21/17 06:29 Labs: Abnormal Lab Results - Last 24 Hours (Table) 08/20/17 08/20/17 08/20/17 Range/Units 11:29 17:26 17:33 Sodium 124 L (137-145) mmol/L Chloride (98-107) mmol/L Carbon Dioxide (22-30) mmol/L BUN (9-20) mg/dL Creatinine (0.66-1.25) mg/dL Glucose (74-99) mg/dL POC Glucose (mg/dL) 178 H 157 H (75-99) mg/dL 08/20/17 08/21/17 08/21/17 Range/Units 20:38 06:29 07:34 Sodium 127 L (137-145) mmol/L Chloride 85 L (98-107) mmol/L Carbon Dioxide 34 H (22-30) mmol/L BUN 7 L (9-20) mg/dL Creatinine 0.60 L (0.66-1.25) mg/dL Glucose 148 H (74-99) mg/dL POC Glucose (mg/dL) 189 H 143 H (75-99) mg/dL Microbiology - Last 24 Hours (Table) 08/17/17 20:05 Blood Culture - Preliminary Blood No Growth after 72 hours Assessment and Plan Plan: Assessment: #1. Hyponatremia. Currently appears euvolemic in nature. 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 Sodium level was 109 on admission and is up to 127 this morning. He is currently off all IV fluids. #2. Lung tumor, being followed by pulmonology. Bronchoscopy down the road. #3. Benign hypertension. Controlled. Plan: Remains off all IV fluids at this time. Avoid rapid correction - sodium level corrected at gradual pace. Maintain 1.5 L fluid restriction. Continue Lasix 20 mg twice daily. Continue salt tabs 1 g 3 times daily. Encourage oral intake. Ensure 3 times daily has been added as well. Potential discharge today. He will need to get a repeat basic metabolic panel checked within 2-3 days of discharge and follow up with his primary care physician within one week. He will also need to follow-up in our office in the next 2 weeks.
[2017-08-21 11:40] LABS: Glucose,Whole Blood 164 mg/dL (75-99)
--- NOTE | 2017-08-21 15:28 | P.DS ---
Providers Date of admission: 08/17/17 21:43 Attending physician: Chetan Castillo Consults: 08/17/17 21:37 Consult Physician Routine Consulting Provider: Ashley Arceo Consult Reason/Comments: hyponatremia Do you want consulting provider notified?: Yes, Notify in am 08/17/17 21:46 Consult Physician Routine Consulting Provider: Diego Benoit Consult Reason/Comments: ICU care Do you want consulting provider notified?: Yes Primary care physician: [facility] Course: 50-year-old male with a known history of COPD was admitted to the hospital due to severe hyponatremia. Patient is having hyponatremia for the last 2 months and is being managed by primary care physician. Patient was found to have sodium level of 110 and was advised to come to hospital. Patient was given hypertonic saline and sodium level improved to [address] of the chest was done and suspected to have bronchogenic carcinoma and pleural effusion. Nephrology and pulmonary was consulted,. He denies any vomiting or diarrhea. Oral intake has been good. Denies chest pain or shortness of breath. No evidence of urinary retention. He is also maintained on Celexa which he has been on for years. Patient denied any fever or chills. No recent illnesses. 08/19/2017 Patient denied any new complaints today. Sodium level improved to 121 with fluid restriction. Patient is being transferred to general medical floor today. Denied any chest pain or short of breath. Bronchoscopic biopsy was clinically improved. Possibly as an outpatient. 08/20/2017 patient does have significant wheezing today and patient is an 4 L of onset and we are trying to wean it down and nephrology is recommending one more day of hospitalization patient wanted to go home today. 08/21/2017 Patient's hyponatremia improved cleared by nephrology. Patient respiratory status improved is not requiring any home oxygen. Patient will follow with PCP , nephrology and pulmonary as an outpatient patient further workup for his lung lesions as an outpatient. PHYSICAL EXAMINATION: GENERAL: The patient is alert and oriented x3, not in any acute distress. Well developed, well nourished. HEENT: Pupils are round and equally reacting to light. EOMI. No scleral icterus. No conjunctival pallor. Normocephalic, atraumatic. No pharyngeal erythema. No thyromegaly. CARDIOVASCULAR: S1 and S2 present. No murmurs, rubs, or gallops. PULMONARY: Chest is clear to auscultation, no wheezing or crackles. ABDOMEN: Soft, nontender, nondistended, normoactive bowel sounds. No palpable organomegaly. MUSCULOSKELETAL: No joint swelling or deformity. EXTREMITIES: No cyanosis, clubbing, or pedal edema. NEUROLOGICAL: Gross neurological examination did not reveal any focal deficits. SKIN: No rashes. 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 Improved #2 newly diagnosed left hilar mass/bronchogenic cancer #3 COPD with acute exacerbation #4 hypertension #5 nicotine addiction #6 depression #7 chronic back pain Patient Condition at Discharge: Critical Plan - Discharge Summary New Discharge Prescriptions: New Budesonide-Formot 160-4.5 Mcg [Symbicort 160-4.5 Mcg Inhaler] 2 puff INHALATION RT-BID #1 inhaler Furosemide [Lasix] 20 mg PO BID@0900,1600 #60 tab Albuterol Inhaler [Ventolin Hfa Inhaler] 1 - 2 puff INHALATION Q6HR PRN #1 inhaler PRN Reason: Shortness Of Breath Or Wheezing predniSONE 10 mg PO DAILY #30 tab Tiotropium [place] [Spiriva] 1 cap INHALATION DAILY #1 device Sodium Chloride Tab 1 gm PO TID #30 tab Continue oxyCODONE HCL [OxyIR] 5 mg PO Q8H PRN PRN Reason: Pain oxyCODONE HCL [OxyCONTIN] 30 mg PO Q12H Tamsulosin [Flomax] 0.4 mg PO DAILY Budesonide/Formoterol Fumarate [Symbicort 160-4.5 Mcg Inhaler] 2 puff INHALATION RT-BID Lisinopril [Prinivil] 20 mg PO DAILY Citalopram Hydrobromide [CeleXA] 40 mg PO DAILY Discharge Medication List oxyCODONE HCL [OxyCONTIN] 30 mg PO Q12H 04/14/16 [History] oxyCODONE HCL [OxyIR] 5 mg PO Q8H PRN 04/14/16 [History] Budesonide/Formoterol Fumarate [Symbicort 160-4.5 Mcg Inhaler] 2 puff INHALATION RT-BID 08/17/17 [History] Citalopram Hydrobromide [CeleXA] 40 mg PO DAILY 08/17/17 [History] Lisinopril [Prinivil] 20 mg PO DAILY 08/17/17 [History] Tamsulosin [Flomax] 0.4 mg PO DAILY 08/17/17 [History] Albuterol Inhaler [Ventolin Hfa Inhaler] 1 - 2 puff INHALATION Q6HR PRN #1 inhaler 08/21/17 [Rx] Budesonide-Formot 160-4.5 Mcg [Symbicort 160-4.5 Mcg Inhaler] 2 puff INHALATION RT-BID #1 inhaler 08/21/17 [Rx] Furosemide [Lasix] 20 mg PO BID@0900,1600 #60 tab 08/21/17 [Rx] Sodium Chloride Tab 1 gm PO TID #30 tab 08/21/17 [Rx] Tiotropium [place] [Spiriva] 1 cap INHALATION DAILY #1 device 08/21/17 [Rx] predniSONE 10 mg PO DAILY #30 tab 08/21/17 [Rx] Follow up Appointment(s)/Referral(s): Cedric Powell MD [Primary Care Provider] - 3 Days (Patient to call Dr. Powell's office Tuesday morning to schedule follow up appointment. The office is closed at time of discharge.) Carlos Dewitt DO [STAFF PHYSICIAN] - 1 Week (Patient to call Dr. Dewitt's office Tuesday to schedule follow up appointment. The office is closed at time of discharge. ) Diego Benoit MD [STAFF PHYSICIAN] - 1 Week (Patient to call Dr. Benoit's office Tuesday to schedule follow up appointment. The office is closed at time of discharge.) Patient Instructions/Handouts: Furosemide (By mouth), Albuterol (By breathing) , Prednisone (By mouth), Tiotropium (By breathing), Budesonide/Formoterol (By breathing), Sodium Chloride (By mouth), Hyponatremia (DC), Pneumonia (DC) Activity/Diet/Wound Care/Special Instructions: Basic Metabolic Panel 2-3 days to monitor electrolytes (sodium level). Discharge Disposition: HOME SELF-CARE
--- NOTE | 2017-08-21 16:04 | P.PN ---
Subjective Progress Note Date: 08/21/17 52-year-old male patient who was having difficulties with hyponatremia on outpatient basis. The patient was worked up initially through his primary care physician and later on sent to endocrinology. Yesterday he came into the emergency department knowing that his sodium level on outpatient was 110. He was feeling weak and tired. He was relatively asymptomatic. He has chronic shortness of breath cough chest tightness and wheezing related to chronic bronchitis and COPD. The patient has smoked one half pack of cigarettes a day for a total of 40 years. He had been using Symbicort on an as-needed basis for shortness of breath. The patient came into the emergency department yesterday. I reviewed the chest x-ray and there was volume loss and elevation of left hemidiaphragm and possibly left hilar mass. Based on this, I ordered a computed tomography scan of the chest that showed a 1.5 cm another infiltrate in the anterior aspect of the right upper lobe. Abnormal increased density in the left hilar area and subcarinal area and there is encasement of the left pulmonary artery and there is left bronchial adenopathy. There was also small left-sided pleural effusion. Coarse interstitial edema in the left lower lobe and mild subpleural interstitial infiltrates in the right lung base. No adrenal mass. The findings are suspicious for a primary bronchogenic cancer. In terms of his hyponatremia, the patient has received hypertonic solution saline overnight at 3 % at the rate of 20 mL an hour and the sodium level is up to 118 this morning. No headache. No nausea. No vomiting. No diarrhea. No excessive beer drinking. He has no change in mental status. He has no hemoptysis. No weight loss. No seizure activity. No altered mentation. Based on the rapid improvement in sodium level, the hypertonic saline was discontinued and the patient was started on a 0.9 saline solution at the rate of 20 mL an hour. The urine osmolality is at 403. Urine sodium is 96. On 08/19/2017 the patient is being seen in follow-up. The patient's sodium level is improved and it is up to 121. He is feeling better. His not having any major weakness and altered mental status. No seizure activity. He is acute COPD exacerbations also being treated with accommodation bronchodilators and steroids. The patient was seen by nephrology. He is on fluid restriction for now[facility]. He has a productive cough. There is some pale yellow production. No hemoptysis at this point. Blood pressure is under better control also. The patient was seen again today 08/20/2017 in follow-up on the regular medical floor. He is awake and alert in no acute distress. He is feeling better today as compared to yesterday. His sodium is up to 124. He still has some bilateral end expiratory wheezing. Some shortness of breath. He is quite anxious to go home. The plan will be for bronchoscopy and biopsy in the outpatient setting once stabilized. He is still requiring 4 L/m per nasal cannula to maintain O2 saturations in the 90s. He'll be set up for home oxygen if needed along with a nebulizer for updraft treatments. He's been afebrile. Hemodynamically stable. On 08/21/2017 the patient is less short of breath. Sodium level is gradually improving. He is still hoarse however his less short of breath and less focused vascular wheezy. He was treated for acute COPD exacerbation. His sodium level is optimized. The patient will be discharged home on Symbicort and Ventolin rescue inhaler to be followed up in the office and further discussion will be made regarding bronchoscopy and transbronchial needle aspirate/biopsy to establish a tissue diagnosis. High suspicion that the patient has an underlying malignancy. Objective - Vital Signs Vital signs: Vital Signs Temp 98.5 F 08/21/17 07:00 Pulse 88 08/21/17 07:37 Resp 20 08/21/17 08:20 BP 165/94 08/21/17 07:00 Pulse Ox 89 L 08/21/17 10:32 Intake & Output 08/20/17 08/21/17 08/21/17 18:59 06:59 18:59 Intake Total 1074 714 240 Output Total 400 2375 Balance 674 -1661 240 Intake: Oral 237 714 240 Other 837 Output: Urine 300 2375 Emesis 100 Other: Voiding Method Urinal Urinal Urinal # Voids 1 2 - Exam Gen. appearance, comfortable. He is obese.Head exam was generally normal. There was no scleral icterus or corneal arcus. Mucous membranes were moist. Neck is supple and the patient has a right IJ Cordis in place. No goiter or neck masses. Lungs sounds are diminished in lung bases bilaterally otherwise clear. Sternum stable clean and intact. Left-sided chest tube is still in place.Cardiac exam revealed the PMI to be normally situated and sized. The rhythm was regular and no extrasystoles were noted during several minutes of auscultation. The first and second heart sounds were normal and physiologic splitting of the second heart sound was noted. There were no murmurs, rubs, clicks, or gallops.Abdominal exam revealed normal bowel sounds. The abdomen was soft, non-tender, and without masses, organomegaly, or appreciable enlargement of the abdominal aorta.Examination of the extremities revealed easily palpable radial, femoral and pedal pulses. There was no cyanosis, clubbing or edema. Surgical wound sites over the lower extremity these are clean and intact and LOUIS drain has been removed.Examination of the skin revealed no evidence of significant rashes, suspicious appearing nevi or other concerning lesions. Neurologically is awake and alert and exam is nonfocal. - Labs CBC & Chem 7: 08/20/17 07:13 08/21/17 06:29 Labs: Abnormal Lab Results - Last 24 Hours (Table) 08/20/17 08/20/17 08/20/17 Range/Units 17:26 17:33 20:38 Sodium 124 L (137-145) mmol/L Chloride (98-107) mmol/L Carbon Dioxide (22-30) mmol/L BUN (9-20) mg/dL Creatinine (0.66-1.25) mg/dL Glucose (74-99) mg/dL POC Glucose (mg/dL) 157 H 189 H (75-99) mg/dL 08/21/17 08/21/17 08/21/17 Range/Units 06:29 07:34 11:35 Sodium 127 L (137-145) mmol/L Chloride 85 L (98-107) mmol/L Carbon Dioxide 34 H (22-30) mmol/L BUN 7 L (9-20) mg/dL Creatinine 0.60 L (0.66-1.25) mg/dL Glucose 148 H (74-99) mg/dL POC Glucose (mg/dL) 143 H 164 H (75-99) mg/dL Microbiology - Last 24 Hours (Table) 08/17/17 20:05 Blood Culture - Preliminary Blood No Growth after 72 hours Assessment and Plan Plan: Assessment 1 hyponatremia, chronic, likely secondary to a tumor-induced SIADH, the sodium level is improved and the patient is not having any neurologic manifestations of hyponatremia. 2 left hilar mass with lymphadenopathy, rule out bronchogenic cancer 3 chronic bronchitis/COPD with acute exacerbation and ongoing shortness of breath 4 hoarseness probably related to a vocal cord paralysis on the left secondary to hilar mass 5 smoking 6 hypertension 7 BPH 8 history of depression maintained on Celexa for more than 2 years 9 chronic back pain maintained on OxyContin Plan The patient COPD exacerbation has been optimized. The patient will be discharged home on Symbicort and Ventolin rescue inhaler on an estimated bases and prednisone burst taper. Fluid restriction. Outpatient follow-up with pulmonary function test and the patient will need an outpatient bronchoscopy with biopsies didn't establish additional diagnosis. Highly likelihood that the patient has an underlying bronchial genic carcinoma. Smoking cessation counseling was again performed.
== END 2017-08-21 13:35 | disposition home or self-care (01) | DRG 644 ==
LOC: EC 19:27 → 6ICU 21:43 → 5MS5E 08-19 15:45
PROVIDERS: ADMIT Hospitalist; ATTEND Hospitalist
DX: E22.2 Syndrome of inappropriate secretion of antidiuretic hormone (principal); C34.90 Malignant neoplasm of unspecified part of unspecified bronchus or lung; J90 Pleural effusion, not elsewhere classified; J38.01 Paralysis of vocal cords and larynx, unilateral; J44.1 Chronic obstructive pulmonary disease with (acute) exacerbation; I10 Essential (primary) hypertension; F17.210 Nicotine dependence, cigarettes, uncomplicated; F32.9 Major depressive disorder, single episode, unspecified; G89.29 Other chronic pain; N40.0 Benign prostatic hyperplasia without lower urinary tract symptoms; Z79.51 Long term (current) use of inhaled steroids; Z79.899 Other long term (current) drug therapy; M19.90 Unspecified osteoarthritis, unspecified site; M54.5 Low back pain; F41.9 Anxiety disorder, unspecified; Z79.891 Long term (current) use of opiate analgesic; Z71.6 Tobacco abuse counseling
CPT/HCPCS: 36415; 71010; 71020; 71260; 80048; 80053; 81001; 82330; 82570; 83036; 83605; 83735; 83880; 83930; 83935; 84100; 84295; 84300; 84443; 84484; 84550; 85025; 85027; 85610; 85730; 87040; 87449; 93005; 94640; 94760; 96361; 96365; 99285

== ENCOUNTER 2017-08-23 15:03 | Emergency (ER) | payer OTHER ==
[2017-08-23] MEDS ORDERED: SODIUM CHLORIDE 0.9% 1,000 ML IV STA ×2 (15:19)
--- NOTE | 2017-08-23 15:27 | ED ---
General Adult HPI - General Chief complaint: Syncope Stated complaint: Syncope Time Seen by Provider: 08/23/17 15:08 Source: patient, EMS, RN notes reviewed Mode of arrival: EMS Limitations: no limitations - History of Present Illness Initial comments: 52-year-old male with recent diagnosis of lung mass and hyponatremia presents with syncopal episode. Patient was taking a hot shower, came out a shower, collapsed there was loss consciousness. Patient was diaphoretic. According to EMS did report patient had a systolic blood pressure of 60. He was rodriguez and diaphoretic. Bilateral tumors, patient has no complaints. No chest pain. No shortness of breath. No fever chills. Patient has been taking sodium tablets for his hyponatremia. EMS did report that family mentioned some generalized shaking. There was no postictal period, no loss of bowel or bladder function. - Related Data Home Medications Medication Instructions Recorded Confirmed oxyCODONE HCL [OxyCONTIN] 30 mg PO Q12H 04/14/16 08/23/17 oxyCODONE HCL [OxyIR] 5 mg PO Q8H PRN 04/14/16 08/23/17 Citalopram Hydrobromide [CeleXA] 40 mg PO DAILY 08/17/17 08/23/17 Lisinopril [Prinivil] 20 mg PO DAILY 08/17/17 08/23/17 Tamsulosin [Flomax] 0.4 mg PO DAILY 08/17/17 08/23/17 Albuterol Inhaler [Ventolin Hfa 2 puff INHALATION RT-QID 08/23/17 08/23/17 Inhaler] Tiotropium Mcfarland [Spiriva] 1 cap INHALATION RT-DAILY 08/23/17 08/23/17 predniSONE See Taper PO DAILY 08/23/17 08/23/17 Previous Rx's Medication Instructions Recorded Budesonide-Formot 160-4.5 Mcg 2 puff INHALATION RT-BID #1 inhaler 08/21/17 [Symbicort 160-4.5 Mcg Inhaler] Furosemide [Lasix] 20 mg PO BID@0900,1600 #60 tab 08/21/17 Sodium Chloride Tab 1 gm PO TID #30 tab 08/21/17 Allergies Allergy/AdvReac Type Severity Reaction Status Date / Time No Known Allergies Allergy Verified 08/17/17 20:21 Review of Systems ROS Statement: Those systems with pertinent positive or pertinent negative responses have been documented in the HPI. ROS Other: All systems not noted in ROS Statement are negative. Past Medical History Past Medical History: Hypertension, Osteoarthritis (OA) Additional Past Medical History / Comment(s): Hypertension, COPD/chronic bronchitis, chronic lower back pain, OA, anxiety/depression maintained on Celexa , BPH, Syncope History of Any Multi-Drug Resistant Organisms: None Reported Additional Past Surgical History / Comment(s): PAIN CLINIC PROCEDURES Past Anesthesia/Blood Transfusion Reactions: No Reported Reaction Past Psychological History: Depression Smoking Status: Current every day smoker - Past Family History Mother Family Medical History: No Reported History General Exam Limitations: no limitations General appearance: alert, in no apparent distress Head exam: Present: atraumatic, normocephalic Eye exam: Present: normal appearance. Absent: PERRL ENT exam: Present: normal exam, normal oropharynx Neck exam: Present: normal inspection. Absent: tenderness, meningismus Respiratory exam: Present: normal lung sounds bilaterally. Absent: respiratory distress Cardiovascular Exam: Present: regular rate, normal rhythm GI/Abdominal exam: Present: soft. Absent: distended, tenderness Extremities exam: Present: normal inspection, normal capillary refill. Absent: pedal edema Neurological exam: Present: alert, oriented X3, CN II-XII intact. Absent: motor sensory deficit Psychiatric exam: Present: normal affect, normal mood Skin exam: Present: warm, dry, intact. Absent: cyanosis, diaphoretic Course Vital Signs 08/23/17 08/23/17 15:07 15:32 Temperature 98.7 F Pulse Rate 67 69 Respiratory 17 16 Rate Blood Pressure 118/65 108/68 O2 Sat by Pulse 98 97 Oximetry EKG Findings - EKG Comments: EKG Findings:: EKG shows normal sinus rhythm, left atrial enlargement, ventricular rate 67, P1 40, QRS duration 92, QTC [address] segment elevation or depression Medical Decision Making - Medical Decision Making 52-year-old male presenting with syncopal episode after a hot shower. Patient has no complaints the time my evaluation. Patient did not want to be transported by EMS. Patient had recent hospitalization for hyponatremia and diagnosis of lung mass. EKG obtained, shows normal sinus rhythm no signs of ischemia. Patient's physical exam unremarkable. Laboratory studies reveal sodium 124, at the time of discharge patient's sodium was 127. He has been taking his sodium tablets. Hemoglobin stable 50.4, white blood cell count 12.9. Chest x-ray shows resolution of previously noted left lower lobe opacity , there is persistent adenopathy consistent with his history of lung mass. Patient is given IV sodium chloride wall emergency department. I did have a long discussed with the patient regarding admission to hospital for syncopal episode and low sodium. Patient would prefer to follow up with his doctor. He has an appointment with pulmonology tomorrow. Patient states he had an appointment with his primary care physician scheduled for today and will attempt to reschedule this in the next several days. Patient is also scheduled follow-up with nephrology. He will continue his sodium tablets. Patient will not drive until cleared by his physician. Diagnosis: Syncope, hyponatremia - Lab Data Result diagrams: 08/23/17 15:20 08/23/17 15:20 Lab Results 08/23/17 08/23/17 08/23/17 Range/Units 15:20 15:20 15:20 WBC 12.9 H (3.8-10.6) k/uL RBC 4.54 (4.30-5.90) m/uL Hgb 15.4 (13.0-17.5) gm/dL Hct 46.9 (39.0-53.0) % MCV 103.3 H (80.0-100.0) fL MCH 34.1 (25.0-35.0) pg MCHC 33.0 (31.0-37.0) g/dL RDW 12.0 (11.5-15.5) % Plt Count 303 (150-450) k/uL Neutrophils % 81 % Lymphocytes % 9 % Monocytes % 7 % Eosinophils % 1 % Basophils % 0 % Neutrophils # 10.5 H (1.3-7.7) k/uL Lymphocytes # 1.2 (1.0-4.8) k/uL Monocytes # 0.8 (0-1.0) k/uL Eosinophils # 0.2 (0-0.7) k/uL Basophils # 0.0 (0-0.2) k/uL Macrocytosis Slight PT (9.0-12.0) sec INR (<1.2) APTT (22.0-30.0) sec Sodium 124 L (137-145) mmol/L Potassium 3.7 (3.5-5.1) mmol/L Chloride 85 L (98-107) mmol/L Carbon Dioxide 32 H (22-30) mmol/L Anion Gap 7 mmol/L BUN 18 (9-20) mg/dL Creatinine 0.86 (0.66-1.25) mg/dL Est GFR (MDRD) Af Amer >60 (>60 ml/min/1.73 sqM) Est GFR (MDRD) Non-Af >60 (>60 ml/min/1.73 sqM) Glucose 68 L (74-99) mg/dL Calcium 8.5 (8.4-10.2) mg/dL Magnesium 1.8 (1.6-2.3) mg/dL Total Bilirubin 1.5 H (0.2-1.3) mg/dL AST 31 (17-59) U/L ALT 38 (21-72) U/L Alkaline Phosphatase 61 (38-126) U/L Total Creatine Kinase 41 L (55-170) U/L CK-MB (CK-2) 1.8 (0.0-2.4) ng/mL CK-MB (CK-2) Rel Index 4.4 Troponin I <0.012 (0.000-0.034) ng/mL Total Protein 6.0 L (6.3-8.2) g/dL Albumin 3.3 L (3.5-5.0) g/dL 08/23/17 Range/Units 15:20 WBC (3.8-10.6) k/uL RBC (4.30-5.90) m/uL Hgb (13.0-17.5) gm/dL Hct (39.0-53.0) % MCV (80.0-100.0) fL MCH (25.0-35.0) pg MCHC (31.0-37.0) g/dL RDW (11.5-15.5) % Plt Count (150-450) k/uL Neutrophils % % Lymphocytes % % Monocytes % % Eosinophils % % Basophils % % Neutrophils # (1.3-7.7) k/uL Lymphocytes # (1.0-4.8) k/uL Monocytes # (0-1.0) k/uL Eosinophils # (0-0.7) k/uL Basophils # (0-0.2) k/uL Macrocytosis PT 10.2 (9.0-12.0) sec INR 1.0 (<1.2) APTT 22.8 (22.0-30.0) sec Sodium (137-145) mmol/L Potassium (3.5-5.1) mmol/L Chloride (98-107) mmol/L Carbon Dioxide (22-30) mmol/L Anion Gap mmol/L BUN (9-20) mg/dL Creatinine (0.66-1.25) mg/dL Est GFR (MDRD) Af Amer (>60 ml/min/1.73 sqM) Est GFR (MDRD) Non-Af (>60 ml/min/1.73 sqM) Glucose (74-99) mg/dL Calcium (8.4-10.2) mg/dL Magnesium (1.6-2.3) mg/dL Total Bilirubin (0.2-1.3) mg/dL AST (17-59) U/L ALT (21-72) U/L Alkaline Phosphatase (38-126) U/L Total Creatine Kinase (55-170) U/L CK-MB (CK-2) (0.0-2.4) ng/mL CK-MB (CK-2) Rel Index Troponin I (0.000-0.034) ng/mL Total Protein (6.3-8.2) g/dL Albumin (3.5-5.0) g/dL Disposition Clinical Impression: Vasovagal syncope, Hyponatremia Disposition: HOME SELF-CARE Condition: Good Instructions: Hyponatremia (ED), Syncope (ED) Referrals: Cedric Powell MD [Primary Care Provider] - 1-2 days Carlos Dewitt DO [STAFF PHYSICIAN] - 1-2 days Diego Benoit MD [STAFF PHYSICIAN] - 1-2 days Time of Disposition: 16:31
[2017-08-23 15:29] LABS: Basophils % (A) 0 %; CH 34.1; CHCM 33.1; Eosinophils # (A) 0.2 k/uL (0-0.7); Eosinophils % (A) 1 %; HCT 46.9 % (39.0-53.0); HDW 2.22; HGB 15.4 gm/dL (13.0-17.5); Luc # (Auto) 0.22; Luc % (Auto) 2; Lymphocytes # (A) 1.2 k/uL (1.0-4.8); Lymphocytes % (A) 9 %; MCH 34.1 pg (25.0-35.0); MCV 103.3 fL (80.0-100.0); Macrocytosis Slight; Mean Platelet Volume 6.2; Monocytes # (A) 0.8 k/uL (0-1.0); Monocytes % (A) 7 %; Neutrophils # (A) 10.5 k/uL (1.3-7.7); Neutrophils % (A) 81 %; RBC 4.54 m/uL (4.30-5.90); WBC 12.9 k/uL (3.8-10.6)
[2017-08-23 15:33] VITALS: RESP 16
[2017-08-23 15:36] LABS: Partial Thromboplastin Time 22.8 sec (22.0-30.0); Prothrombin Time 10.2 sec (9.0-12.0)
[2017-08-23 15:41] LABS: ALT 38 U/L (21-72); AST 31 U/L (17-59); Alkaline Phosphatase 61 U/L (38-126); Anion Gap 7 mmol/L; Blood Urea Nitrogen 18 mg/dL (9-20); Calcium 8.5 mg/dL (8.4-10.2); Carbon Dioxide 32 mmol/L (22-30); Chloride 85 mmol/L (98-107); Glucose 68 mg/dL (74-99); Magnesium 1.8 mg/dL (1.6-2.3); Non-African American GFR(MDRD) >60 (>60 ml/min/1.73 sqM); Potassium 3.7 mmol/L (3.5-5.1); Sodium 124 mmol/L (137-145); Total Bilirubin 1.5 mg/dL (0.2-1.3)
[2017-08-23 15:48] LABS: Creatine Kinase 41 U/L (55-170)
--- NOTE | 2017-08-23 15:58 | XR ---
EXAMINATION TYPE: XR chest 2V DATE OF EXAM: 08/23/2017 COMPARISON: 08/26/2017 HISTORY: Weakness and syncope TECHNIQUE: Frontal and lateral views of the chest are obtained. FINDINGS: Trace left pleural effusion remains. Minimal linear subsegmental atelectasis remains in th e left lung base at the site of the previously seen left basilar opacity. The cardiac silhouette siz e is within normal limits. The osseous structures are intact. Minimal degenerative changes of the t horacic spine are noted. The previously described extensive mediastinal adenopathy is better appreci ated on CT. IMPRESSION: Resolution of the previously seen left basilar opacity with minimal residual linear subs egmental atelectasis. Trace left pleural effusion is unchanged. The previously described extensive me diastinal adenopathy is better appreciated on CT. Bronchoscopy could be considered.
[2017-08-23 16:01] LABS: Creatine Kinase MB 1.8 ng/mL (0.0-2.4); Troponin I <0.012 ng/mL (0.000-0.034)
[2017-08-23 16:45] VITALS: BP 143/77; PULSE 75; TEMP 98
== END 2017-08-23 16:44 | disposition home or self-care (01) ==
LOC: EC 15:03
DX: E87.1 Hypo-osmolality and hyponatremia (principal); R55 Syncope and collapse; N40.0 Benign prostatic hyperplasia without lower urinary tract symptoms; I10 Essential (primary) hypertension; F32.9 Major depressive disorder, single episode, unspecified; M19.90 Unspecified osteoarthritis, unspecified site; F17.200 Nicotine dependence, unspecified, uncomplicated; Z79.52 Long term (current) use of systemic steroids; Z79.891 Long term (current) use of opiate analgesic; Z79.899 Other long term (current) drug therapy
CPT/HCPCS: 36415; 71020; 80053; 82550; 82553; 83735; 84484; 85025; 85610; 85730; 93005; 96365; 99285

== ENCOUNTER 2017-08-26 10:53 | Day surgery (SDC) | payer OTHER ==
[2017-08-25 14:31] VITALS: BMI 20.5
[~2017-08-26 10:53] MED LIST: ALBUTEROL NEB (CONC) 2.5 MG/0.5 ML INHALATION ONE; DEXAMETHASONE SOD PHOSPHATE 10 MG/ML 1 ML VIAL IV ONE; HYDROmorphone 0.5 MG/0.5 ML SYRINGE IVP PRN; LACTATED RINGERS 1,000 ML IV ONE; LACTATED RINGERS 1,000 ML IV SCH; LIDOCAINE 2% (PF) 20 MG/ML 10ML INHALATION ONE; MIDAZOLAM 2 MG/2 ML VIAL IV PRN; ONDANSETRON 4 MG/2 ML VIAL IVP ONE; Pre Op ABX Message 1 EACH MISC MISCELLANE ONE; SCOPOLAMINE 1.5MG/72HR PATCH TRANSDERM ONE
[2017-08-26 11:33] LABS: Glucose,Whole Blood 83 mg/dL (75-99)
[2017-08-26] MEDS ORDERED: HYDROCORTISONE SUCCINATE 100 MG/2 ML VIAL IVP ONE ×2 (11:50→12:10)
[2017-08-26] MEDS ORDERED: SUCCINYLCHOLINE CHLORIDE 100 MG/5 ML SYR IV ONE (12:45)
[2017-08-26] MEDS ORDERED: PROPOFOL 10 MG/ML 20 ML VIAL IV ONE (12:45)
[2017-08-26] MEDS ORDERED: MIDAZOLAM 2 MG/2 ML VIAL ONE (12:45)
[2017-08-26] MEDS ORDERED: PHENYLEPHRINE-0.9% NACL SYG 1 MG/10 ML SYRINGE ONE (12:45)
[2017-08-26] MEDS ORDERED: fentaNYL (PF) 50 MCG/ML 2 ML AMP ONE (12:45)
[2017-08-26] MEDS ORDERED: LIDOCAINE 1% INJ 10MG/ML (20 ML MDV) ONE (12:45)
[2017-08-26 13:53] VITALS: TEMP 98.3
[2017-08-26] MEDS ORDERED: LACTATED RINGERS 1,000 ML IV ONE (13:58)
--- NOTE | 2017-08-26 14:18 | XR ---
EXAMINATION TYPE: XR chest 1V DATE OF EXAM: 08/26/2017 COMPARISON: 08/23/2017 HISTORY: From TECHNIQUE: Single frontal view of the chest is obtained. FINDINGS: No sizable pneumothorax. Chronic rib deformities noted. Hyperinflation compatible COPD. Le ft lower lobe infiltrate and small effusion. IMPRESSION: 1. New left lower lobe infiltrate and small pleural effusion. Prominent left hilum may reflect underl chiqui adenopathy or mass. 2. No sizable pneumothorax.
[2017-08-26 14:26] VITALS: RESP 18
[2017-08-26 14:44] VITALS: BP 136/70; PULSE 78
--- NOTE | 2017-08-26 18:07 | P.PCN ---
Date of Procedure: 08/26/17 Preoperative Diagnosis: Left hilar mass Postoperative Diagnosis: Left hilar mass Procedure(s) Performed: Bronchoscopy, flexible, endobronchial biopsies, and the bronchial brushing, bronchial alveolar lavage, transbronchial needle aspirate Anesthesia: MEREDITH Surgeon: Diego Benoit Estimated Blood Loss (ml): 20 Pathology: other Condition: stable Disposition: same day Indications for Procedure: left hilar mass Operative Findings: This procedure was done in the operating room. The patient has a left hilar mass. The patient has COPD. 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 I opted to perform this procedure under general anesthesia knowing that the patient has COPD and chronic hoarseness which I suspected to be related to a left vocal cord paralysis. The patient was brought into the operating room. Initially he was given 100 mg of Diprivan and under conscious sedation a flexible bronchoscope was inserted through the left nostril and was advanced to upper airway. The purpose of the procedure was to inspect the upper airways and the visualized upper airway structures including the posterior oropharynx, larynx, epiglottis, vallecula and cords. The posterior oropharynx was erythematous and there was extensive candidiasis throughout the pharyngeal and laryngeal wall. The prognosis of post swallowing. The cords were irregular and inflamed and swollen in the left vocal cord mobility was absent. Lidocaine was applied to the vocal cords and a flexible bronchoscope was removed. The patient was intubated using a kaleidoscope with a #8 orotracheal tube. Following that, and after was tested orotracheal tube and the patient was adequately ventilated and oxygenated. The flexible bronchoscope was reinserted through the orotracheal tube and airway inspection was completed. The distal trachea and the huang were within normal limits. Right mainstem bronchus and right upper lobe bronchus regular lobe bronchus and right lower lobe bronchus along with were inspected and there were within normal limits. Examination of the left side including left mainstem bronchus that showed bloody mucus retained in the posterior wall of the left mainstem bronchus. The distal left mainstem bronchus was quite narrowed and the huang between the upper and lower lobe was quite distorted secondary to extrinsic compression. Most of the anatomic distortion was at the lingular segment and the lower lobe segments. The secondary huang was regular and the mucus surface was inflamed and superficial mucosal bleeding was encountered from the airway surface. I was able to pass the bronchoscope through the left lower lobe bronchus and see the various segments of the lower lobes. I'm also bronchoscope back to the distal left mainstem and transbronchial needle aspirate of the secondary huang was done. This was done utilizing a 19-gauge cytology needle. Following that endobronchial biopsies of the left lower lobe was done followed by endobronchial brushings and the bronchioloalveolar lavage where more than 80 mL of fluid was infused and 25 mL was suctioned back. The aspirate was obviously bloody. The mucosal surface of the left lower lobe bronchus was very irregular and toes narrowed secondary to extrinsic compression and suspected endobronchial involvement. I think the samples that were obtained from that location should establish a diagnosis. After completing the procedure therapeutic it was suctioning was done and there was increased from any blood. The mucosa was again inspected and there was no active bleeding. The bronchoscope was removed and the patient was left to anesthesia for extubation. After being extubated the patient got transferred to recovery.
== END 2017-08-26 14:57 | disposition home or self-care (01) ==
LOC: ORWHC2ENDO 10:53
PROVIDERS: ATTEND Internal Medicine Critical Care Medicine
DX: C34.32 Malignant neoplasm of lower lobe, left bronchus or lung (principal); R49.0 Dysphonia; J44.1 Chronic obstructive pulmonary disease with (acute) exacerbation; E22.2 Syndrome of inappropriate secretion of antidiuretic hormone; F41.9 Anxiety disorder, unspecified; M19.90 Unspecified osteoarthritis, unspecified site; I10 Essential (primary) hypertension; Z79.891 Long term (current) use of opiate analgesic; Z79.51 Long term (current) use of inhaled steroids; Z79.52 Long term (current) use of systemic steroids; Z79.899 Other long term (current) drug therapy; F17.200 Nicotine dependence, unspecified, uncomplicated
CPT/HCPCS: 88104; 88108; 88305; 88173; 88342; 88341; 71010; 31629; 31625; 31623; 31624; J2250; J1720; J2405; J2001; J3010; J2370; J0330; J2704

== ENCOUNTER → 2017-09-10 | Outpatient (CLI) | payer OTHER ==
--- NOTE | 2017-09-13 11:57 | PE ---
Nuclear medicine PET/CT HISTORY: Lung carcinoma, initial scan Patient received 11.5 mCi F-18 FDG intravenously in delayed scanning was performed from the skull bas e to the mid thighs. Localization and attenuation correction CT scan was performed. Correlation to previous CT scans of the chest August 2017, bone scan 08/31/2017 Neck and chest: There is corresponding hypermetabolic uptake to the abnormal soft tissue attenuation involving the mediastinum and left hilar region with SUV 6.6. Atelectatic lung in the left chest show s hypermetabolic uptake, SUV 3.9-4. Rind of hypermetabolic uptake present along the pleural surfaces in the left chest, SUV 3.5. Interstitial and emphysematous changes, groundglass opacity again noted i n much of the right lung, scattered hypermetabolic uptake in the range of 2.1-2. There are areas of p arenchymal destruction involving the left lung with collections of air present, there is a left-sided air-fluid level, difficult to exclude empyema, multilocular pleural effusion. Abdomen pelvis: Patient shows changes of anasarca. No suspicious hypermetabolic uptake. No evident ad enopathy. Lack of fat exam. There is some free fluid in the pelvis. Osseous structures: within normal limits IMPRESSION: Findings consistent with patient's history of lung cancer. Multilocular fluid in the left chest as described. Additional findings above.
== END | disposition home or self-care (01) ==
LOC: RADPETMAIN 13:28
PROVIDERS: ATTEND Internal Medicine Hematology & Oncology
DX: C34.32 Malignant neoplasm of lower lobe, left bronchus or lung (principal); J94.8 Other specified pleural conditions
CPT/HCPCS: 78815; A9552

== ENCOUNTER → 2017-09-16 | Outpatient (CLI) | payer OTHER ==
[2017-09-16 11:38] VITALS: RESP 16
[2017-09-16 13:46] VITALS: TEMP 97.9
[2017-09-16 14:45] VITALS: BP 122/72; PULSE 74
--- NOTE | 2017-09-16 15:03 | US ---
EXAMINATION TYPE: US thoracentesis DATE OF EXAM: 09/16/2017 COMPARISON: NONE HISTORY: Pleural effusion. Lung cancer FINDINGS: Maximal barrier technique was utilized. The skin overlying a suitable pocket of fluid was localized in the left anterior chest and the overlying skin prepped and draped. Lidocaine was used f or local anesthesia. Ultrasound was used with sterile technique. A 21 gauge needle was advanced into the pleural fluid collection using ultrasound guidance . Approximately 0.02 liter(s) of serous sang uinous fluid was removed. Needle was withdrawn and hemostasis achieved. There is no immediate compli cation. The patient discharged in stable condition without complication. IMPRESSION: STATUS POST ULTRASOUND GUIDED THORACENTESIS, POST PROCEDURE CHEST X-RAY PENDING. THIS RI OCEDURE WAS PERFORMED BY THE UNDERSIGNED. Specimen sent for laboratory analysis.
== END | disposition home or self-care (01) ==
LOC: PROCWHC3 10:18
PROVIDERS: ATTEND Internal Medicine Critical Care Medicine
DX: J90 Pleural effusion, not elsewhere classified (principal)
CPT/HCPCS: 88108; 88305; 32555 ×2; J2001

== ENCOUNTER → 2017-12-17 | Outpatient (CLI) | payer OTHER ==
--- NOTE | 2017-12-19 08:39 | PE ---
EXAMINATION TYPE: PET CT fusion skull to thigh DATE OF EXAM: 12/17/2017 COMPARISON: CT chest 10/21/2017 Prior PET/CT: 09/10/2017 HISTORY: Lung carcinoma TECHNIQUE: Following the intravenous administration of 12.1 mCi of F-18 FDG, whole body images are p erformed from the skull base to the midthigh. Images are reviewed on the computer in the coronal, ax ial, and sagittal planes. Reconstructed rotating images are created on independent workstation and r eviewed on the computer. A localization and attenuation correction CT is performed in conjunction w ith the PET scan. DLP: 257.52 mGycm SCAN: Subsequent Blood glucose: 113 mg/dL Average Mediastinum SUV: 1.16 Average Liver SUV: 1.28 FINDINGS: NECK: There is mild increased uptake within the right tonsillar pillar with an SUV of 2.0. This may be some inflammatory change. THORAX: There is a small focus of increased radiotracer accumulation along the anterior left upper lo be. This could be the internal mammary chain or pleural thickening. This has intermediate signal with in SUV of 1.3. There is a rim of increased signal through the left lung. This has greater uptake with in the left base with an SUV of 3.3, image 110. Uptake of this rim generally in the range of 1.5-1.8. There is increased uptake along the inferior pleural margin at the left base with an SUV of 2.2. Max imum intensity appears to be approximately 3.3 which appears somewhat similar given the change in pos ition from the diminished size of the fluid collection. Previous marked uptake within the hilar region extending into the mediastinum has resolved. Uptake wi thin this region appears to be background level. Very subtle residual uptake in the medial portion of the aortopulmonic window, image 83, has SUV 1.9 which may be some residual neoplasm. ABDOMEN: No abnormal uptake PELVIS: No abnormal uptake OSSEOUS STRUCTURES: No abnormal uptake LOCALIZATION CT: Some mucosal thickenings within the left maxillary sinus. The right tonsillar pillar appears unremarkable. There is limitation due to beam hardening artifact from dental amalgam. The loculated pneumothorax in the left thickened pleural margin is smaller than the complex collectio n present previously. There is a 0.8 cm lymph node which may correspond to the intermediate uptake wi thin the medial aortopulmonic window identified on the PET scan. Scattered small lymph nodes are pres ent within the mediastinum. Coronary artery calcifications present. The ascending thoracic aorta at t he level the main pulmonary artery is 3.6 cm. The main pulmonary artery the bifurcation is 2.8 cm. Ad renal glands appear normal. There is a 2.9 cm cyst on the anterior lateral right mid kidney. Small am ount of free fluid is within the pelvis COMPARISON: Uptake of the pleural thickening on the left is similar SUV to prior study. This could be some minimal diminished SUV. Previous marked increased uptake within the mediastinum has nearly reso lved minimal residual in the aortopulmonic window region. Loculated pneumothorax region is smaller th an the previous complex collection present on the prior exam. IMPRESSION: 1. 1. The uptake within the pleural margin surrounding the loculated pneumothorax similar to minimall y diminished from comparison. No increasing uptake is evident. 2. There is near complete resolution of radiotracer within the left hilar and mediastinal regions fro m prior study for current study. Some mild residual may reside within the small lymph node at the aor topulmonic window level discussed above.
== END | disposition home or self-care (01) ==
LOC: RADPETMAIN 08:31
PROVIDERS: ATTEND Internal Medicine Hematology & Oncology
DX: C34.92 Malignant neoplasm of unspecified part of left bronchus or lung (principal); J93.9 Pneumothorax, unspecified
CPT/HCPCS: 78815; A9552

== ENCOUNTER → 2017-12-30 | Outpatient (CLI) | payer OTHER | END | disposition home or self-care (01) | LOC: LABWHC1 10:50 | PROVIDERS: ATTEND Radiology Radiation Oncology | DX: C34.31 Malignant neoplasm of lower lobe, right bronchus or lung (principal); C79.31 Secondary malignant neoplasm of brain | CPT/HCPCS: 36415; 82565 ==

== ENCOUNTER → 2018-01-02 | Outpatient (CLI) | payer OTHER ==
--- NOTE | 2018-01-02 11:57 | MR ---
EXAMINATION TYPE: MR brain wo/w con DATE OF EXAM: 01/02/2018 10:53 AM COMPARISON: NONE HISTORY: memory loss, r/o brain mets, lung ca hx CONTRAST: Patient received 5.5 mL intravenous Gadavist gadolinium contrast. Multiplanar and multispin-echo imaging of the brain was performed . Pre and post contrast enhanced i mages are obtained. The ventricles, basal cisterns and sulci overlying the cerebral convexities are mildly enlarged. There is evidence of mild periventricular white matter ischemic demyelination. Remote deep white matter insults are also noted. No acute edema is seen on diffusion weighted imaging. There is no evidence for midline shift or mass effect. Acute intracranial hemorrhage or extra-axial collection is not evident. No enhancing lesions are seen. The paranasal sinuses and mastoid air cells are well-aerated. IMPRESSION: Age-related atrophic and chronic small vessel ischemic change. No acute intracranial process at this time. No enhancing lesions are seen.
== END | disposition home or self-care (01) ==
LOC: RADMRIMAIN 10:18
PROVIDERS: ATTEND Radiology Radiation Oncology
DX: C34.31 Malignant neoplasm of lower lobe, right bronchus or lung (principal); C79.31 Secondary malignant neoplasm of brain; G31.9 Degenerative disease of nervous system, unspecified; I67.82 Cerebral ischemia
CPT/HCPCS: 70553; A9581

== ENCOUNTER → 2018-03-22 | Outpatient (CLI) | payer OTHER ==
--- NOTE | 2018-03-22 16:25 | MR ---
EXAMINATION TYPE: MR brain wo/w con DATE OF EXAM: 03/22/2018 COMPARISON: Prior brain MRI 01/02/2018 HISTORY: Secondary malignant neoplasm of brain, headache TECHNIQUE: Multiplanar, multisequence images of the brain and brainstem is performed without and with IV contras t, utilizing 5.5 mL intravenous Gadavist . FINDINGS: Diffusion weighted images demonstrate no evidence of a recent infarct or other diffusion ab normality. There is no extra-axial fluid collection or significant interval change in white matter s ignal abnormality, scattered hyperintensities are present within the deep and periventricular, subcor tical white matter on inversion recovery and T2-weighted sequences. The ventricular system and ciste rnal spaces are normal in size and appearance. The brain volume is age appropriate. Midline structures demonstrate normal morphology. The craniocervical junction appears within normal limits. Post contrast images demonstrate no abnormal enhancement. The dural venous sinuses appear pa tent. The visualized sinuses are remarkable for air-fluid level in left maxillary sinus. The globes a re intact. IMPRESSION: Similar findings to prior exam. Correlate for maxillary sinusitis. Chronic small vessel i schemia, age-related atrophy.
== END | disposition home or self-care (01) ==
LOC: RADMRIMAIN 12:17
PROVIDERS: ATTEND Radiology Radiation Oncology
DX: G31.9 Degenerative disease of nervous system, unspecified (principal); I67.82 Cerebral ischemia; C79.31 Secondary malignant neoplasm of brain
CPT/HCPCS: 70553; A9581

== ENCOUNTER → 2018-03-24 | Outpatient (CLI) | payer OTHER ==
--- NOTE | 2018-03-24 14:35 | CT ---
EXAMINATION TYPE: CT ChestAbdPelvis w con DATE OF EXAM: 03/24/2018 COMPARISON: Prior CT chest 10/21/2017, at CT 12/17/2017 HISTORY: Patient complains of bilateral lower extremity swelling. Otherwise no complaints. History of lung CA. CT DLP: 1136 mGycm Automated exposure control for dose reduction was used. CONTRAST: CT scan of the chest, abdomen and pelvis is performed with Oral Contrast and with IV Contrast, patien t injected with 100 mL of Isovue 300. FINDINGS: Patient is cachectic, there are anasarca changes present LUNGS: The lungs are similar in appearance, there is no concerning parenchymal mass or nodule identif ied. The pleural fluid collection has been evacuated in the interval, trapped lung is present, there is thickening of the visceral and parietal pleura, low dense area in the inferior margin of the air c ollection within the pleural space is noted and may be postinflammatory, residual tumor is not exclud ed. No endobronchial lesion or pericardial effusion. Coronary artery calcifications are present. MEDIASTINUM: There are no greater than 1 cm hilar or mediastinal lymph nodes. No pericardial effusi on is seen. AORTA: Extensive atheromatous changes are present especially at the distal aorta, there are coronary artery calcifications OTHER: No additional significant abnormality is seen. LIVER/GB: No significant abnormality is appreciated. PANCREAS: No significant abnormality is seen. SPLEEN: No significant abnormality is seen. ADRENALS: No significant abnormality is seen. KIDNEYS: Stable REPRODUCTIVE ORGANS: No gross abnormality seen. BOWEL: No significant abnormality is seen. FREE AIR: No Free Air visible. ASCITES: None seen. RETROPERITONEAL ADENOPATHY: No retroperitoneal adenopathy is seen. LYMPH NODES: No greater than 1 cm abdominal or pelvic lymph nodes are appreciated. URINARY BLADDER: No significant abnormality is seen. PELVIC ADENOPATHY: None visualized. OSSEOUS STRUCTURES: No significant abnormality is seen. IMPRESSION: Interval improvement in patient's pleural fluid collection with residual trapped lung, ab normal pleural thickening and possibly postinflammatory change as described. Additional findings abov e.
== END | disposition home or self-care (01) ==
LOC: RADCTMAIN 11:22
PROVIDERS: ATTEND Internal Medicine Hematology & Oncology
DX: C34.92 Malignant neoplasm of unspecified part of left bronchus or lung (principal); R91.8 Other nonspecific abnormal finding of lung field
CPT/HCPCS: 71260; 74177; 36415; Q9967

== ENCOUNTER → 2018-03-28 | Outpatient (CLI) | payer OTHER ==
[2018-03-28 10:37] LABS: Basophils # (A) 0.1 k/uL (0-0.2); Basophils % (A) 1 %; Eosinophils # (A) 0.1 k/uL (0-0.7); Eosinophils % (A) 1 %; HCT 51.4 % (39.0-53.0); HGB 15.9 gm/dL (13.0-17.5); Hypochromasia Moderate; Lymphocytes # (A) 0.5 k/uL (1.0-4.8); Lymphocytes % (A) 7 %; MCH 30.6 pg (25.0-35.0); MCV 98.6 fL (80.0-100.0); Macrocytosis Slight; Mean Platelet Volume 6.6; Monocytes # (A) 0.7 k/uL (0-1.0); Monocytes % (A) 9 %; Neutrophils # (A) 6.2 k/uL (1.3-7.7); Neutrophils % (A) 80 %; Platelet Count 211 k/uL (150-450); RBC 5.21 m/uL (4.30-5.90); RDW 14.9 % (11.5-15.5); WBC 7.8 k/uL (3.8-10.6)
[2018-03-28 11:11] LABS: ALT 31 U/L (21-72); AST 32 U/L (17-59); Albumin 3.1 g/dL (3.5-5.0); Alkaline Phosphatase 110 U/L (38-126); Anion Gap 7 mmol/L; Blood Urea Nitrogen 5 mg/dL (9-20); Calcium 8.8 mg/dL (8.4-10.2); Carbon Dioxide 34 mmol/L (22-30); Chloride 90 mmol/L (98-107); Glucose 98 mg/dL (74-99); Sodium 131 mmol/L (137-145); Total Bilirubin 0.9 mg/dL (0.2-1.3); Total Protein 6.2 g/dL (6.3-8.2)
== END | disposition home or self-care (01) ==
LOC: LABWHC1 10:02
PROVIDERS: ATTEND Radiology Radiation Oncology
DX: C34.32 Malignant neoplasm of lower lobe, left bronchus or lung (principal); Z92.21 Personal history of antineoplastic chemotherapy
CPT/HCPCS: 36415; 80053; 85025

== ENCOUNTER → 2018-05-30 | Outpatient (CLI) | payer OTHER ==
--- NOTE | 2018-05-30 14:21 | CT ---
EXAMINATION TYPE: CT ChestAbdPelvis w con DATE OF EXAM: 05/30/2018 COMPARISON: 03/24/2018 HISTORY: Lung cancer, observe for Mets CT DLP: 461.0 mGycm CONTRAST: CT scan of the chest, abdomen and pelvis is performed with Oral Contrast and with IV Contrast, patien t injected with 100 mL of Isovue 300. CT Chest: LUNGS:The pleural fluid collection has been evacuated in the interval, trapped lung is present, there is thickening of the visceral and parietal pleura, low dense area in the inferior margin of the air collection within the pleural space is noted and may be postinflammatory, residual tumor is not exclu ded. No endobronchial lesion or pericardial effusion. Left infrahilar pleural parenchymal opacity is unchanged. No pulmonary nodule or mass is detected. No evidence for sizable pleural effusion. MEDIASTINUM: Thoracic aorta is of normal caliber. The heart is not enlarged. No evidence for media stinal mass or adenopathy. HILAR STRUCTURES: No evidence for mass. No hilar adenopathy is appreciated. OTHER: No significant abnormality. CONTRAST CT ABDOMEN AND PELVIS FINDINGS: LIVER/GB: No calcified gallstones. No space occupying hepatic lesion. Biliary tree is of normal ca liber. PANCREAS: No inflammation. No distinct mass. SPLEEN: No splenic enlargement. No lesion seen. ADRENALS: No nodule. No thickening. KIDNEYS/BLADDER: No hydronephrosis. No nephrolithiasis. No solid distinct renal mass. Renal cystic changes unchanged. BOWEL: Normal appendix. Normal bowel caliber. No inflammation. GENITAL ORGANS: No gross abnormality. LYMPH NODES: No greater than 1cm abdominal or pelvic lymph nodes are appreciated. AORTA: Atheromatous change abdominal aorta and iliac vessels with moderate to severe luminal narrowin g of the common iliac arteries bilaterally OSSEOUS STRUCTURES: No significant abnormality is seen. OTHER: No significant additional abnormality is seen. IMPRESSION: 1. Persistent trapped along on the left unchanged from prior examination. Areas of the pleural nodula rity also stable. Left infrahilar pleural parenchymal density persists. 2. No evidence for metastatic disease at this time.
== END | disposition home or self-care (01) ==
LOC: RADCTMAIN 09:38
PROVIDERS: ATTEND Internal Medicine Hematology & Oncology
DX: J94.8 Other specified pleural conditions (principal); C34.92 Malignant neoplasm of unspecified part of left bronchus or lung
CPT/HCPCS: 71260; 74177; Q9967

== ENCOUNTER → 2018-06-03 | Outpatient (CLI) | payer OTHER ==
--- NOTE | 2018-06-03 21:37 | MR ---
EXAMINATION TYPE: MR brain wo/w con DATE OF EXAM: 06/03/2018 COMPARISON: MR brain dated 01/02/2018 and 03/22/2018 HISTORY: Lung ca, R/O mets TECHNIQUE: Multiplanar, multisequence images of the brain and brainstem is performed without and with IV contras t, utilizing 5.5 mL intravenous Gadavist . FINDINGS: Diffusion weighted images demonstrate no evidence of a recent infarct or other diffusion ab normality. There is no extra-axial fluid collection. Scattered nonspecific moderate burden T2/FLAIR hyperintensities are seen within the subcortical and periventricular white matter. The ventricular s ystem and cisternal spaces are normal in size and appearance. The brain volume is age appropriate. Midline structures demonstrate normal morphology. The craniocervical junction appears within normal limits. Motion artifact is seen on the enhanced images, however no gross evidence of abnormal postcon trast enhancement is seen. The dural venous sinuses appear patent. The globes are intact. There is ci rcumferential moderate mucosal thickening of the left maxillary sinus with antrostomy defect noted. M ild mucosal thickening is seen of the frontal and ethmoid sinuses. Remaining paranasal sinuses are we ll aerated. There is partial opacification of the left mastoid air cells. Right mastoid air cells are well aerated. IMPRESSION: 1. Enhanced images are slightly limited by patient motion artifact, however no gross evidence of abno rmal enhancement is seen to suggest intracranial metastasis at this time. No leptomeningeal enhanceme nt is seen or bone marrow replacing process to suggest osseous metastasis. 2. Moderate burden nonenhancing nonspecific white matter change without progression from the prior ex am. Findings are likely on the basis of chronic microangiopathy. 3. Persistent paranasal sinus disease with mucosal thickening most significant in the left maxillary sinus and partial opacification of the left mastoid air cells. Correlate with point tenderness to exc lude left mastoiditis.
== END | disposition home or self-care (01) ==
LOC: RADMRIMAIN 13:49
PROVIDERS: ATTEND Radiology Radiation Oncology
DX: C34.32 Malignant neoplasm of lower lobe, left bronchus or lung (principal); C79.31 Secondary malignant neoplasm of brain; R90.89 Other abnormal findings on diagnostic imaging of central nervous system
CPT/HCPCS: 82565; 70553; 36415; A9581

== ENCOUNTER 2018-06-23 16:08 | Inpatient (IN) | payer OTHER ==
[2018-06-23] MEDS ORDERED: AZITHROMYCIN 500 MG in SODIUM CHLORIDE 0.9% 250 ML IVPB STA (16:24)
[2018-06-23] MEDS ORDERED: ALBUTEROL NEBULIZED 2.5 MG/3 ML INHALATION STA (16:24)
[2018-06-23] MEDS ORDERED: IPRATROPIUM 0.5 MG/2.5 ML NEBU INHALATION STA (16:24)
[2018-06-23] MEDS ORDERED: SODIUM CHLORIDE 0.9% 500 ML IV STA (16:24)
[2018-06-23 16:51] LABS: Basophils # (A) 0.1 k/uL (0-0.2); Basophils % (A) 1 %; Eosinophils # (A) 0.1 k/uL (0-0.7); Eosinophils % (A) 1 %; HGB 15.9 gm/dL (13.0-17.5); Lymphocytes # (A) 0.4 k/uL (1.0-4.8); Lymphocytes % (A) 4 %; MCH 32.2 pg (25.0-35.0); MCHC 33.1 g/dL (31.0-37.0); MCV 97.3 fL (80.0-100.0); Mean Platelet Volume 6.1; Monocytes # (A) 0.8 k/uL (0-1.0); Monocytes % (A) 8 %; Neutrophils # (A) 8.6 k/uL (1.3-7.7); Neutrophils % (A) 86 %; Platelet Count 357 k/uL (150-450); RBC 4.93 m/uL (4.30-5.90); RDW 14.2 % (11.5-15.5)
[2018-06-23 16:54] LABS: ALT 24 U/L (21-72); AST 62 U/L (17-59); Albumin 3.6 g/dL (3.5-5.0); Alkaline Phosphatase 142 U/L (38-126); Anion Gap 7 mmol/L; Blood Urea Nitrogen 11 mg/dL (9-20); Calcium 9.3 mg/dL (8.4-10.2); Carbon Dioxide 33 mmol/L (22-30); Chloride 87 mmol/L (98-107); Glucose 132 mg/dL (74-99); Potassium 5.5 mmol/L (3.5-5.1); Sodium 127 mmol/L (137-145); Total Bilirubin 1.6 mg/dL (0.2-1.3); Total Protein 7.5 g/dL (6.3-8.2)
[2018-06-23 16:55] LABS: Partial Thromboplastin Time 27.9 sec (22.0-30.0)
[2018-06-23 17:04] LABS: Creatine Kinase 87 U/L (55-170)
[2018-06-23 17:16] LABS: Troponin I <0.012 ng/mL (0.000-0.034)
[2018-06-23 17:18] LABS: Creatine Kinase MB 4.8 ng/mL (0.0-2.4)
--- NOTE | 2018-06-23 17:51 | XR ---
EXAMINATION TYPE: XR chest 2V DATE OF EXAM: 06/23/2018 COMPARISON: 03/08/2018 HISTORY: Short of breath TECHNIQUE: Frontal and lateral views of the chest are obtained. FINDINGS: There is coarse infiltrate in the left lung with volume loss. There is pleural thickening and large air-filled 8 cm x 5 cm area on the left lateral chest wall consistent with loculated pneumo thorax. There is slight blunting of costophrenic angle. Heart size is normal. There is no heart failu re. There are chest leads. The right lung is clear. IMPRESSION: Pleural and pulmonary scarring in the left side with chronic loculated small left pneumo thorax. No change compared to old exam. No evidence of tension.
[2018-06-23] MEDS ORDERED: IPRATROPIUM-ALBUTEROL 3 ML NEB INHALATION PRN ×2 (19:09→21:21)
[2018-06-23] MEDS ORDERED: SODIUM POLYSTYRENE SULFONATE 15 GM/60 ML BOTTLE PO STA (19:14)
--- NOTE | 2018-06-23 19:18 | ED ---
General Adult HPI - General Chief complaint: Shortness of Breath Stated complaint: Diff Breathing Source: patient Mode of arrival: ambulatory Limitations: no limitations - History of Present Illness Initial comments: Dictation was produced using [employer] dictation software. please excuse any grammatical, word or spelling errors. Chief Complaint: 53-year-old male with past medical history of lung cancer, hypertension, chronic pneumothorax presents with difficulty breathing. History of Present Illness: Extensive history of COPD. He presents with increased dyspnea, cough. He also has a change in sputum production. Denies any fevers. Patient has a nebulizer at home. He states that his shortness of breath has been increasing despite his nebulizer treatments. Denies any constitutional symptoms. The ROS documented in this emergency department record has been reviewed and confirmed by me. Those systems with pertinent positive or negative responses have been documented in the HPI. All other systems are other negative and/or noncontributory. - Related Data Home Medications Medication Instructions Recorded Confirmed oxyCODONE HCL [OxyCONTIN] 30 mg PO Q12H 04/14/16 06/23/18 oxyCODONE HCL [OxyIR] 5 mg PO TID PRN 04/14/16 06/23/18 Citalopram Hydrobromide [CeleXA] 40 mg PO DAILY 08/17/17 06/23/18 Tamsulosin [Flomax] 0.4 mg PO DAILY 08/17/17 06/23/18 Albuterol Inhaler [Ventolin Hfa 2 puff INHALATION RT-QID 08/23/17 06/23/18 Inhaler] Albuterol Nebulized [Ventolin 2.5 mg INHALATION RT-DAILY 06/23/18 06/23/18 Nebulized] Lisinopril [Zestril] 20 mg PO DAILY 06/23/18 06/23/18 Omeprazole 20 mg PO DAILY 06/23/18 06/23/18 Ondansetron [Zofran] 4 mg PO QID PRN 06/23/18 06/23/18 Sodium Chloride Tab 1 gm PO TID 06/23/18 06/23/18 Previous Rx's Medication Instructions Recorded Budesonide-Formot 160-4.5 Mcg 2 puff INHALATION RT-BID #1 inhaler 08/21/17 [Symbicort 160-4.5 Mcg Inhaler] Demeclocycline [Declomycin] 150 mg PO BID #60 tab 09/03/17 Allergies Allergy/AdvReac Type Severity Reaction Status Date / Time No Known Allergies Allergy Verified 06/23/18 16:30 Review of Systems ROS Statement: Those systems with pertinent positive or pertinent negative responses have been documented in the HPI. ROS Other: All systems not noted in ROS Statement are negative. 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", Hypertension, COPD/chronic bronchitis , chronic lower back pain, OA, anxiety/depression maintained on Celexa, BPH, Syncope History of Any Multi-Drug Resistant Organisms: None Reported Additional Past Surgical History / Comment(s): PAIN CLINIC PROCEDURES, bronchoscopy w/ biopsy Past Anesthesia/Blood Transfusion Reactions: No Reported Reaction Past Psychological History: Depression Smoking Status: Former smoker - Past Family History Mother Family Medical History: Diabetes Mellitus Father Family Medical History: Hypertension, Myocardial Infarction ([place]) General Exam - General Exam Comments Initial Comments: PHYSICAL EXAM: General Impression: Alert and oriented x3, not in acute distress HEENT: Normocephalic atraumatic, extra-ocular movements intact, pupils equal and reactive to light bilaterally, mucous membranes moist. Cardiovascular: Heart regular rate and rhythm, S1&S2 audible, no murmurs, rubs or gallops Chest: Diminished lung sounds bilaterally, bilateral lung brandt and expiratory wheezing Abdomen: Bowel sounds present, abdomen soft, non-tender, non-distended, no organomegaly Musculoskeletal: Pulses present and equal in all extremities, no peripheral edema Motor: Power 5/5 bilaterally, no focal deficits noted Neurological: CN II-XII grossly intact, no focal motor or sensory deficits noted Skin: Intact with no visualized rashes Psych: Normal affect and mood Limitations: no limitations Course Vital Signs 06/23/18 06/23/18 06/23/18 16:15 16:40 17:06 Temperature 98.4 F Pulse Rate 113 H 100 110 H Respiratory 24 Rate Blood Pressure 114/80 O2 Sat by Pulse 87 L Oximetry 06/23/18 06/23/18 17:38 18:56 Temperature Pulse Rate 100 91 Respiratory 18 18 Rate Blood Pressure 137/80 144/91 O2 Sat by Pulse 97 99 Oximetry Medical Decision Making - Medical Decision Making ED course: Throughout male with clinical presentation consistent with COPD exacerbation. Signs upon arrival shows heart rate of 113, saturation of 87 on room air. Rest vital signs within acceptable limits. Laboratory evaluation obtained. CBC is unremarkable. Coag panel negative. Metabolic panel shows mild hyperkalemia 5.5. Sodium level CXXVII, bicarb of 33. Glucose 132. Bilirubin 1.6. Rest of labs unremarkable. Patient given Kayexalate. No EKG changes to suggest hyperkalemia. Patient does have some sinus tachycardia. No lower extremity symptoms. Patient has any chest pain symptoms. There is low clinical suspicion of over embolus at this time. Patient does not have a history of blood clots. Chest x-ray was obtained showing no acute processes. EKG shows sinus tachycardia. Patient's clinical presentation consistent with COPD exacerbation. Patient be admitted for [id number] breathing treatments. Pulmonology on consult. EKG Interpretation: A 12 lead EKG was obtained. It was interpreted by myself and attending physician. There is a P wave before every QRS complex. Rate is 108. Rhythm is sinus tachycardia,. Interval 124, QS 94, QTc 431. QT is not prolonged. No ST segment depression or elevation. Overall, this EKG is unremarkable - Lab Data Result diagrams: 06/23/18 16:29 06/23/18 16:29 Lab Results 06/23/18 06/23/18 06/23/18 Range/Units 16:29 16:29 16:29 WBC 10.0 (3.8-10.6) k/uL RBC 4.93 (4.30-5.90) m/uL Hgb 15.9 (13.0-17.5) gm/dL Hct 48.0 (39.0-53.0) % MCV 97.3 (80.0-100.0) fL MCH 32.2 (25.0-35.0) pg MCHC 33.1 (31.0-37.0) g/dL RDW 14.2 (11.5-15.5) % Plt Count 357 (150-450) k/uL Neutrophils % 86 % Lymphocytes % 4 % Monocytes % 8 % Eosinophils % 1 % Basophils % 1 % Neutrophils # 8.6 H (1.3-7.7) k/uL Lymphocytes # 0.4 L (1.0-4.8) k/uL Monocytes # 0.8 (0-1.0) k/uL Eosinophils # 0.1 (0-0.7) k/uL Basophils # 0.1 (0-0.2) k/uL PT (9.0-12.0) sec INR (<1.2) APTT (22.0-30.0) sec Sodium 127 L (137-145) mmol/L Potassium 5.5 H (3.5-5.1) mmol/L Chloride 87 L (98-107) mmol/L Carbon Dioxide 33 H (22-30) mmol/L Anion Gap 7 mmol/L BUN 11 (9-20) mg/dL Creatinine 0.60 L (0.66-1.25) mg/dL Est GFR (CKD-EPI)AfAm >90 (>60 ml/min/1.73 sqM) Est GFR (CKD-EPI)NonAf >90 (>60 ml/min/1.73 sqM) Glucose 132 H (74-99) mg/dL Calcium 9.3 (8.4-10.2) mg/dL Total Bilirubin 1.6 H (0.2-1.3) mg/dL AST 62 H (17-59) U/L ALT 24 (21-72) U/L Alkaline Phosphatase 142 H (38-126) U/L Total Creatine Kinase 87 (55-170) U/L CK-MB (CK-2) 4.8 H* (0.0-2.4) ng/mL CK-MB (CK-2) Rel Index 5.5 Troponin I <0.012 (0.000-0.034) ng/mL Total Protein 7.5 (6.3-8.2) g/dL Albumin 3.6 (3.5-5.0) g/dL 06/23/18 Range/Units 16:29 WBC (3.8-10.6) k/uL RBC (4.30-5.90) m/uL Hgb (13.0-17.5) gm/dL Hct (39.0-53.0) % MCV (80.0-100.0) fL MCH (25.0-35.0) pg MCHC (31.0-37.0) g/dL RDW (11.5-15.5) % Plt Count (150-450) k/uL Neutrophils % % Lymphocytes % % Monocytes % % Eosinophils % % Basophils % % Neutrophils # (1.3-7.7) k/uL Lymphocytes # (1.0-4.8) k/uL Monocytes # (0-1.0) k/uL Eosinophils # (0-0.7) k/uL Basophils # (0-0.2) k/uL PT 10.0 (9.0-12.0) sec INR 1.0 (<1.2) APTT 27.9 (22.0-30.0) sec Sodium (137-145) mmol/L Potassium (3.5-5.1) mmol/L Chloride (98-107) mmol/L Carbon Dioxide (22-30) mmol/L Anion Gap mmol/L BUN (9-20) mg/dL Creatinine (0.66-1.25) mg/dL Est GFR (CKD-EPI)AfAm (>60 ml/min/1.73 sqM) Est GFR (CKD-EPI)NonAf (>60 ml/min/1.73 sqM) Glucose (74-99) mg/dL Calcium (8.4-10.2) mg/dL Total Bilirubin (0.2-1.3) mg/dL AST (17-59) U/L ALT (21-72) U/L Alkaline Phosphatase (38-126) U/L Total Creatine Kinase (55-170) U/L CK-MB (CK-2) (0.0-2.4) ng/mL CK-MB (CK-2) Rel Index Troponin I (0.000-0.034) ng/mL Total Protein (6.3-8.2) g/dL Albumin (3.5-5.0) g/dL Disposition Clinical Impression: COPD exacerbation Disposition: ADMITTED IP TO THIS HOSP Referrals: Cedric Powell MD [Primary Care Provider] - 1-2 days Time of Disposition: 19:18
[2018-06-23] MEDS ORDERED: ONDANSETRON 4 MG/2 ML VIAL IVP PRN (20:31)
[2018-06-23 20:50] VITALS: BMI 20.9
[2018-06-24] MEDS: oxyCODONE ER 15 MG TAB.ER.12H PO SCH ×2 (04:23→15:17)
[2018-06-24 06:58] LABS: Glucose,Whole Blood 105 mg/dL (75-99)
[2018-06-24] MEDS: predniSONE 20 MG TAB PO SCH (07:33)
[2018-06-24] MEDS: AZITHROMYCIN 250 MG TAB PO SCH (07:33)
[2018-06-24 08:27] LABS: Basophils % (A) 0 %; Eosinophils # (A) 0.2 k/uL (0-0.7); Eosinophils % (A) 2 %; HCT 40.8 % (39.0-53.0); HGB 13.4 gm/dL (13.0-17.5); Lymphocytes # (A) 0.7 k/uL (1.0-4.8); Lymphocytes % (A) 10 %; MCH 31.8 pg (25.0-35.0); MCHC 32.7 g/dL (31.0-37.0); Monocytes # (A) 0.7 k/uL (0-1.0); Monocytes % (A) 11 %; Neutrophils # (A) 5.1 k/uL (1.3-7.7); Neutrophils % (A) 75 %; Platelet Count 286 k/uL (150-450); WBC 6.8 k/uL (3.8-10.6)
[2018-06-24 08:39] LABS: ALT 27 U/L (21-72); AST 24 U/L (17-59); Albumin 2.7 g/dL (3.5-5.0); Alkaline Phosphatase 112 U/L (38-126); Anion Gap 3 mmol/L; Blood Urea Nitrogen 5 mg/dL (9-20); Calcium 8.5 mg/dL (8.4-10.2); Carbon Dioxide 38 mmol/L (22-30); Chloride 88 mmol/L (98-107); Glucose 81 mg/dL (74-99); Potassium 3.8 mmol/L (3.5-5.1); Sodium 129 mmol/L (137-145); Total Bilirubin 0.9 mg/dL (0.2-1.3); Total Protein 5.7 g/dL (6.3-8.2)
[2018-06-24] MEDS: SYMBICORT 160-4.5 MCG INHALER INHALATION SCH ×2 (08:44→19:52)
[2018-06-24] MEDS: IPRATROPIUM-ALBUTEROL 3 ML NEB INHALATION SCH ×4 (08:45→19:52)
--- NOTE | 2018-06-24 11:27 | P.CNPUL ---
History of Present Illness Consult date: 06/24/18 Reason for consult: dyspnea, cough, COPD, hypoxemia, abnormal CXR/CT Chief complaint: Shortness of breath, COPD exacerbation History of present illness: Pulmonary consultation dated 06/24/2018 This is a 53-year-old male with a history of shortness of breath. The patient also apparently has a history of lung cancer hypertension chronic pneumothorax and chronic changes in the left chest. He presents to the emergency department on June 23 with difficulty breathing. He was also coughing. He is also producing some phlegm. No fever or chills. He was using his nebulizer at home without benefit. Today he is feeling a bit better. Not back to baseline. The patient denies any hemoptysis. Again no fever or chills. Despite using his nebulizer machine at home and other breathing medications, there've been no improvement. The patient has a history of small cell lung cancer as well as a history of osteoarthritis pneumonia hypertension BPH syncope anxiety/depression and tumor-induced SIADH. The patient apparently does have an appointment with my partner on Tuesday. Review of Systems A 14 point review of system is positive for shortness of breath chest congestion cough wheezing and phlegm production. There are no fever or chills. No chest pain or chest discomfort. He is feeling better today compared to yesterday. Not quite back to baseline. Would like to stay 1 more day in the hospital. Past Medical History Past Medical History: Hypertension, Osteoarthritis (OA), Pneumonia Additional Past Medical History / Comment(s): Small cell lung cancer (left hilar mass) in remission, "tumor-induced SIADH", hypertension, COPD/chronic bronchitis, chronic lower back pain, OA, BPH, syncope History of Any Multi-Drug Resistant Organisms: None Reported Additional Past Surgical History / Comment(s): Pain clinic procedure, bronchoscopy w/ biopsy Past Anesthesia/Blood Transfusion Reactions: No Reported Reaction Past Psychological History: Anxiety, Depression Smoking Status: Current some day smoker Past Alcohol Use History: None Reported Additional Past Alcohol Use History / Comment(s): Smokes a few cigarettes a day. Started smoking at age 17. Past Drug Use History: Marijuana Additional Drug Use History / Comment(s): Marijuna use in the AM to help with appetite. - Past Family History Mother Family Medical History: Diabetes Mellitus Father Family Medical History: Hypertension, Myocardial Infarction ([place]) Medications and Allergies Home Medications Medication Instructions Recorded Confirmed Type oxyCODONE HCL [OxyCONTIN] 30 mg PO Q12H 04/14/16 06/23/18 History oxyCODONE HCL [OxyIR] 5 mg PO TID PRN 04/14/16 06/23/18 History Citalopram Hydrobromide [CeleXA] 40 mg PO DAILY 08/17/17 06/23/18 History Tamsulosin [Flomax] 0.4 mg PO DAILY 08/17/17 06/23/18 History Budesonide-Formot 160-4.5 Mcg 2 puff INHALATION RT-BID #1 inhaler 08/21/1706/23 Rx [Symbicort 160-4.5 Mcg Inhaler] Albuterol Inhaler [Ventolin Hfa 2 puff INHALATION RT-QID 08/23/17 06/23/18 History Inhaler] Demeclocycline [Declomycin] 150 mg PO BID #60 tab 09/03/17 06/23/18 Rx Albuterol Nebulized [Ventolin 2.5 mg INHALATION RT-DAILY 06/23/18 06/23/18 History Nebulized] Lisinopril [Zestril] 20 mg PO DAILY 06/23/18 06/23/18 History Omeprazole 20 mg PO DAILY 06/23/18 06/23/18 History Ondansetron [Zofran] 4 mg PO QID PRN 06/23/18 06/23/18 History Sodium Chloride Tab 1 gm PO TID 06/23/18 06/23/18 History Allergies Allergy/AdvReac Type Severity Reaction Status Date / Time No Known Allergies Allergy Verified 06/23/18 16:30 Physical Exam Osteopathic Statement: *. No significant issues noted on an osteopathic structural exam other than those noted in the History and Physical/Consult. Vitals: Vital Signs Temp Pulse Pulse Resp BP BP Pulse Ox 06/24/18 06:28 98.7 F 77 18 138/82 96 06/24/18 04:46 110 H 06/24/18 04:35 108 H 06/23/18 23:00 98.1 F 89 24 150/90 97 06/23/18 20:06 97.4 F L 88 20 126/82 99 06/23/18 18:56 91 18 144/91 99 06/23/18 17:38 100 18 137/80 97 06/23/18 17:06 110 H 06/23/18 16:40 100 20 06/23/18 16:15 98.4 F 113 H 24 114/80 87 L Intake and Output 06/23/18 06/24/18 06/24/18 22:59 06:59 14:59 Other: Voiding Method Toilet Toilet Urinal Urinal # Voids 0 2 2 # Bowel Movements 0 Weight 53.5 kg No acute distress, oriented 3. No evidence of respiratory distress including nasal flaring use of accessory muscles or conversational dyspnea. HEENT examination is grossly unremarkable. Mucous membranes are moist. No oral lesions. Neck supple. Full range of motion. No adenopathy thyromegaly or neck vein distention. Cardiovascular examination reveals regular rhythm rate. S1-S2 normal. No S3 or S4. No discernible murmur noted. Lungs reveal inspiratory and expiratory wheezes and rhonchi. Breath sounds are diminished. There is prolongation on forced maneuver. The patient coughs on forced maneuver. Abdomen soft bowel sounds are heard. No masses or tenderness. Extremities are intact. No cyanosis clubbing or edema. Skin is without rash or lesion. Neurologic examination is brief but nonfocal. Results - Laboratory Findings CBC and BMP: 06/24/18 07:39 06/24/18 07:39 PT/INR, D-dimer PT 10.0 sec (9.0-12.0) 06/23/18 16:29 INR 1.0 (<1.2) 06/23/18 16:29 Abnormal lab findings: Abnormal Labs 06/23/18 06/23/18 06/23/18 16:29 16:29 16:29 RBC Neutrophils # 8.6 H Lymphocytes # 0.4 L Sodium 127 L Potassium 5.5 H Chloride 87 L Carbon Dioxide 33 H BUN Creatinine 0.60 L Glucose 132 H POC Glucose (mg/dL) Total Bilirubin 1.6 H AST 62 H Alkaline Phosphatase 142 H CK-MB (CK-2) 4.8 H* Total Protein Albumin 06/24/18 06/24/18 06/24/18 06:56 07:39 07:39 RBC 4.20 L Neutrophils # Lymphocytes # 0.7 L Sodium 129 L Potassium Chloride 88 L Carbon Dioxide 38 H BUN 5 L Creatinine 0.57 L Glucose POC Glucose (mg/dL) 105 H Total Bilirubin AST Alkaline Phosphatase CK-MB (CK-2) Total Protein 5.7 L Albumin 2.7 L - Diagnostic Findings Chest x-ray: report reviewed (Chest x-ray, labs and medications are reviewed. Recent chest x-ray is no different compared to x-ray done in March.), image reviewed Assessment and Plan Assessment: Assessment COPD exacerbation, likely complicated by purulent tracheobronchitis. No evidence of hugo pneumonia. History of small cell lung cancer Previous history of pneumonia Persistent small loculated left-sided pneumothorax BPH Syncope Anxiety/depression DJD Hypertension Chronic low back pain SIADH History of ongoing tobacco use Plan: Plan dated 06/24/2018 Chest x-ray, labs and medications are reviewed. White count 6.8 hemoglobin hematocrit and platelet count all normal. Sodium 129 potassium 3.8 chloride is 88 and CO2 is 38. BUN and creatinine were 5 and 0.57. The patient likely has a chronic SIADH. Medications include Symbicort 160/4.5, 2 puffs twice a day and updrafts with albuterol and Atrovent 4 times a day and when necessary. The patient's currently also on prednisone 40 mg a day. He is also on oral antibiotic in the form of azithromycin. He can likely be discharged out of the hospital tomorrow. Additional recommendations and suggestions are forthcoming. He does have an appointment with my partner on Tuesday. Time with Patient: Greater than 30
[2018-06-24 14:23] VITALS: TEMP 98.3
[2018-06-24] MEDS: NICOTINE 21MG/24HR PATCH TRANSDERM SCH (14:44)
[2018-06-24 23:06] VITALS: RESP 18
[2018-06-25] MEDS: oxyCODONE ER 15 MG TAB.ER.12H PO SCH (04:26)
[2018-06-25 06:13] VITALS: BP 124/91
[2018-06-25] MEDS: IPRATROPIUM-ALBUTEROL 3 ML NEB INHALATION SCH ×3 (07:45→15:45)
[2018-06-25] MEDS: SYMBICORT 160-4.5 MCG INHALER INHALATION SCH (07:45)
[2018-06-25 07:59] VITALS: PULSE 62
[2018-06-25] MEDS: AZITHROMYCIN 250 MG TAB PO SCH (08:01)
[2018-06-25] MEDS: predniSONE 20 MG TAB PO SCH (08:01)
[2018-06-25] MEDS: NICOTINE 21MG/24HR PATCH TRANSDERM SCH (08:01)
--- NOTE | 2018-06-25 11:46 | P.PN ---
Subjective Progress Note Date: 06/25/18 Principal diagnosis: COPD exacerbation/lung cancer Progress note dated 06/25/2018 This is a very pleasant 53-year-old male who I saw yesterday in consultation. He came with a COPD exacerbation complicated by purulent tracheobronchitis. He has a history of small cell lung cancer and small cell lung cancer-induced SIADH. He has a previous history of pneumonia a persistent loculated left- sided pneumothorax BPH syncope anxiety/depression DJD hypertension chronic low back pain and ongoing tobacco use with nicotine addiction. He sees my partner, Dr. Benoit. The patient is doing much better today. Would like to be discharged home. He states that his breathing is much improved. Denies any significant phlegm production. No fever or chills. He is not coughing up any blood. He has been weaned off of the oxygen. Objective - Vital Signs Vital signs: Vital Signs Temp 98.3 F 06/25/18 06:12 Pulse 62 06/25/18 07:59 Resp 18 06/25/18 06:12 BP 124/91 06/25/18 06:12 Pulse Ox 97 06/25/18 06:12 Intake & Output 06/24/18 06/25/18 06/25/18 18:59 06:59 18:59 Weight 53.5 kg Other: Voiding Method Toilet Toilet Urinal Urinal # Voids 3 3 - Exam No acute distress, oriented 3. No evidence of respiratory distress including nasal flaring use of accessory muscles or conversational dyspnea. HEENT examination is grossly unremarkable. Mucous membranes are moist. No oral lesions. Neck supple. Full range of motion. No adenopathy thyromegaly or neck vein distention. Cardiovascular examination reveals regular rhythm rate. S1-S2 normal. No S3 or S4. No discernible murmur noted. Lungs reveal inspiratory and expiratory wheezes and rhonchi. Breath sounds are diminished. There is prolongation on forced maneuver. The patient coughs on forced maneuver. Breath sounds are much improved. There is better air exchange today. Abdomen soft bowel sounds are heard. No masses or tenderness. Extremities are intact. No cyanosis clubbing or edema. Skin is without rash or lesion. Neurologic examination is brief but nonfocal. - Labs CBC & Chem 7: 06/24/18 07:39 06/24/18 07:39 Labs: Microbiology - Last 24 Hours (Table) 06/24/18 03:04 Gram Stain - Preliminary Sputum Assessment and Plan Assessment: Assessment COPD exacerbation, likely complicated by purulent tracheobronchitis. No evidence of hugo pneumonia. History of small cell lung cancer Previous history of pneumonia Persistent small loculated left-sided pneumothorax BPH Syncope Anxiety/depression DJD Hypertension Chronic low back pain SIADH History of ongoing tobacco use Plan: Plan dated 06/24/2018 Chest x-ray, labs and medications are reviewed. White count 6.8 hemoglobin hematocrit and platelet count all normal. Sodium 129 potassium 3.8 chloride is 88 and CO2 is 38. BUN and creatinine were 5 and 0.57. The patient likely has a chronic SIADH. Medications include Symbicort 160/4.5, 2 puffs twice a day and updrafts with albuterol and Atrovent 4 times a day and when necessary. The patient's currently also on prednisone 40 mg a day. He is also on oral antibiotic in the form of azithromycin. He can likely be discharged out of the hospital tomorrow. Additional recommendations and suggestions are forthcoming. He does have an appointment with my partner on Tuesday. Plan dated 06/25/2018 The patient could be considered for discharge. We see my note above. The patient will follow-up with my partner. He really has an appointment. No new labs to report. Microbiology is negative. He should be discharged home on an oral antibiotic and a prednisone taper. Additional recommendations and suggestions are forthcoming. He is counseled about the importance of smoking cessation. Time with Patient: Less than 30
--- NOTE | 2018-06-25 12:12 | P.HPIM ---
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 Patient was having cough without much sputum production. No fever no chills. Patient is being treated for acute COPD exacerbation currently. Patient did try a nebulizer at home without much benefit. Patient came to ER for further evaluation. Chest x-ray showed pleural and pulmonary scarring in the left side with a chronic loculated small left pneumothorax. No changes compared to old exam. No evidence of tension. Review of Systems Constitutional: Patient denies any fever or chills . No generalized weakness or weight loss. Abdomen: Patient denied nausea vomiting and diarrhea and abdominal pain. Cardiovascular: Patient denies any chest pain or short of breath no palpitations. Respiratory: Cough without sputum production. Patient does have shortness of breath. And wheezing Neurologic: Patient denied any numbness or tingling headache. Musculoskeletal: Patient denies any complaints of joint swelling or deformity. Skin: Negative Psychiatric: Negative Endocrine: No heat or cold intolerance. No recent weight gain. Genitourinary: No dysuria or hematuria. All other 14 point ROS negative except the above Past Medical History Past Medical History: Hypertension, Osteoarthritis (OA), Pneumonia Additional Past Medical History / Comment(s): Small cell lung cancer (left hilar mass) in remission, "tumor-induced SIADH", hypertension, COPD/chronic bronchitis, chronic lower back pain, OA, BPH, syncope History of Any Multi-Drug Resistant Organisms: None Reported Additional Past Surgical History / Comment(s): Pain clinic procedure, bronchoscopy w/ biopsy Past Anesthesia/Blood Transfusion Reactions: No Reported Reaction Past Psychological History: Anxiety, Depression Smoking Status: Current some day smoker Past Alcohol Use History: None Reported Additional Past Alcohol Use History / Comment(s): Smokes a few cigarettes a day. Started smoking at age 17. Past Drug Use History: Marijuana Additional Drug Use History / Comment(s): Marijuna use in the AM to help with appetite. - Past Family History Mother Family Medical History: Diabetes Mellitus Father Family Medical History: Hypertension, Myocardial Infarction (ID) Medications and Allergies Home Medications Medication Instructions Recorded Confirmed Type oxyCODONE HCL [OxyCONTIN] 30 mg PO Q12H 04/14/16 06/23/18 History oxyCODONE HCL [OxyIR] 5 mg PO TID PRN 04/14/16 06/23/18 History Citalopram Hydrobromide [CeleXA] 40 mg PO DAILY 08/17/17 06/23/18 History Tamsulosin [Flomax] 0.4 mg PO DAILY 08/17/17 06/23/18 History Budesonide-Formot 160-4.5 Mcg 2 puff INHALATION RT-BID #1 inhaler 08/21/1706/23 Rx [Symbicort 160-4.5 Mcg Inhaler] Albuterol Inhaler [Ventolin Hfa 2 puff INHALATION RT-QID 08/23/17 06/23/18 History Inhaler] Demeclocycline [Declomycin] 150 mg PO BID #60 tab 09/03/17 06/23/18 Rx Albuterol Nebulized [Ventolin 2.5 mg INHALATION RT-DAILY 06/23/18 06/23/18 History Nebulized] Lisinopril [Zestril] 20 mg PO DAILY 06/23/18 06/23/18 History Omeprazole 20 mg PO DAILY 06/23/18 06/23/18 History Ondansetron [Zofran] 4 mg PO QID PRN 06/23/18 06/23/18 History Sodium Chloride Tab 1 gm PO TID 06/23/18 06/23/18 History Allergies Allergy/AdvReac Type Severity Reaction Status Date / Time No Known Allergies Allergy Verified 06/23/18 16:30 Physical Exam Vitals: Vital Signs Temp Pulse Pulse Resp BP BP Pulse Ox 06/24/18 06:28 98.7 F 77 18 138/82 96 06/24/18 04:46 110 H 06/24/18 04:35 108 H 06/23/18 23:00 98.1 F 89 24 150/90 97 06/23/18 20:06 97.4 F L 88 20 126/82 99 06/23/18 18:56 91 18 144/91 99 06/23/18 17:38 100 18 137/80 97 06/23/18 17:06 110 H 06/23/18 16:40 100 20 06/23/18 16:15 98.4 F 113 H 24 114/80 87 L Intake and Output 08/17/18 08/18/18 08/18/18 22:59 06:59 14:59 Other: Voiding Method Toilet Toilet Urinal Urinal # Voids 0 2 2 # Bowel Movements 0 Weight 53.5 kg 53.5 kg PHYSICAL EXAMINATION: Patient is lying in the bed comfortably, no acute distress, awake alert and oriented.. HEENT: Normocephalic. Neck is supple. Pupils reactive. Nostrils clear. Oral cavity is moist. Ears reveal no drainage. Neck reveals no JVD, carotid bruits, or thyromegaly. CHEST EXAMINATION: Trachea is central. Symmetrical expansion. Bilateral expiratory wheezing. Minimal rhonchi and no crackles.. CARDIAC: Normal S1, S2 with no gallops. No murmurs ABDOMEN: Soft. Bowel sounds normal. No organomegaly. No abdominal bruits. Extremities: reveal no edema. No clubbing or cyanosis Neurologically awake, alert, oriented x3 with well-coordinated movements. No focal deficits noted Skin: No rash or skin lesions. Psychiatric: Coperative. Nonsuicidal Musculoskeletal: No joint swelling or deformity. Normal range of motion. Results CBC & Chem 7: 06/24/18 07:39 06/24/18 07:39 Labs: Abnormal Lab Results - Last 24 Hours (Table) 06/23/18 06/23/18 06/23/18 Range/Units 16:29 16:29 16:29 RBC (4.30-5.90) m/uL Neutrophils # 8.6 H (1.3-7.7) k/uL Lymphocytes # 0.4 L (1.0-4.8) k/uL Sodium 127 L (137-145) mmol/L Potassium 5.5 H (3.5-5.1) mmol/L Chloride 87 L (98-107) mmol/L Carbon Dioxide 33 H (22-30) mmol/L BUN (9-20) mg/dL Creatinine 0.60 L (0.66-1.25) mg/dL Glucose 132 H (74-99) mg/dL POC Glucose (mg/dL) (75-99) mg/dL Total Bilirubin 1.6 H (0.2-1.3) mg/dL AST 62 H (17-59) U/L Alkaline Phosphatase 142 H (38-126) U/L CK-MB (CK-2) 4.8 H* (0.0-2.4) ng/mL Total Protein (6.3-8.2) g/dL Albumin (3.5-5.0) g/dL 06/24/18 06/24/18 06/24/18 Range/Units 06:56 07:39 07:39 RBC 4.20 L (4.30-5.90) m/uL Neutrophils # (1.3-7.7) k/uL Lymphocytes # 0.7 L (1.0-4.8) k/uL Sodium 129 L (137-145) mmol/L Potassium (3.5-5.1) mmol/L Chloride 88 L (98-107) mmol/L Carbon Dioxide 38 H (22-30) mmol/L BUN 5 L (9-20) mg/dL Creatinine 0.57 L (0.66-1.25) mg/dL Glucose (74-99) mg/dL POC Glucose (mg/dL) 105 H (75-99) mg/dL Total Bilirubin (0.2-1.3) mg/dL AST (17-59) U/L Alkaline Phosphatase (38-126) U/L CK-MB (CK-2) (0.0-2.4) ng/mL Total Protein 5.7 L (6.3-8.2) g/dL Albumin 2.7 L (3.5-5.0) g/dL Thrombosis Risk Factor Assmnt - DVT/VTE Prophylaxis DVT/VTE Prophylaxis: Pharmacologic Prophylaxis ordered - Choose All That Apply Any of the Below Risk Factors Present?: Yes Each Factor Represents 1 point: Abnormal pulmonary function (COPD), Age 41-60 years Other Risk Factors: No Other congenital or acquired thrombophilia - If yes, enter type in comment: No Thrombosis Risk Factor Assessment Total Risk Factor Score: 2 Thrombosis Risk Factor Assessment Level: Low Risk Assessment and Plan Assessment: Acute COPD exacerbation likely due to tracheobronchitis History of small cell lung cancer in remission Tumor induced SIADH with hyponatremia 129 COPD Chronic low back pain Osteoarthritis Reveals Anxiety and depression History of marijuana use Plan: Patient will be continued on IV steroids and breathing treatments and follow closely. Continue with home medications. Fluid restriction and follow sodium level. Further recommendations based on clinical course. Patient will need to follow with pulmonary in the clinic. Time with Patient: Greater than 30
--- NOTE | 2018-06-25 20:33 | P.DS ---
Providers Date of admission: 06/23/18 19:09 Expected date of discharge: 06/25/18 Attending physician: Greg Mack Consults: 06/23/18 19:09 Consult Physician Routine Consulting Provider: Diego Benoit Consult Reason/Comments: copd exacerbation Do you want consulting provider notified?: Yes Primary care physician: Markos Powell [facility] Course: Discharge diagnosis Acute COPD exacerbation likely due to tracheobronchitis History of small cell lung cancer in remission Tumor induced SIADH with hyponatremia 129 COPD Chronic low back pain Osteoarthritis Reveals Anxiety and depression History of marijuana use Hospital course Patient is a 52-year-old male with a known history of hypertension, osteoarthritis and history of small cell lung cancer in remission as well as SIADH was admitted to the hospital with complaints of shortness of breath. Patient was having cough without much sputum production. No fever no chills. Patient is being treated for acute COPD exacerbation currently. Patient did try a nebulizer at home without much benefit. Patient came to ER for further evaluation. Chest x-ray showed pleural and pulmonary scarring in the left side with a chronic loculated small left pneumothorax. No changes compared to old exam. No evidence of tension. Plan: Patient w continued on IV steroids and breathing treatments and and antibiotics. Continued with home medications. Fluid restriction and followed sodium level. Patient did improve clinically with above management and continue with steroids for 4 total of 5 days and antibiotics for 5 days. Wheezing resolved . Patient will need to follow with pulmonary in the clinic. Discharge physical examination was done and vitals reviewed. Patient Condition at Discharge: Fair Plan - Discharge Summary Discharge Rx Participant: No New Discharge Prescriptions: New Azithromycin [Zithromax] 250 mg PO DAILY #4 tab predniSONE 40 mg PO DAILY 3 Days #6 tab Continue oxyCODONE HCL [OxyIR] 5 mg PO TID PRN PRN Reason: Pain oxyCODONE HCL [OxyCONTIN] 30 mg PO Q12H Tamsulosin [Flomax] 0.4 mg PO DAILY Citalopram Hydrobromide [CeleXA] 40 mg PO DAILY Budesonide-Formot 160-4.5 Mcg [Symbicort 160-4.5 Mcg Inhaler] 2 puff INHALATION RT-BID #1 inhaler Albuterol Inhaler [Ventolin Hfa Inhaler] 2 puff INHALATION RT-QID Demeclocycline [Declomycin] 150 mg PO BID #60 tab Ondansetron [Zofran] 4 mg PO QID PRN PRN Reason: Nausea Omeprazole 20 mg PO DAILY Lisinopril [Zestril] 20 mg PO DAILY Albuterol Nebulized [Ventolin Nebulized] 2.5 mg INHALATION RT-DAILY Sodium Chloride Tab 1 gm PO TID Discharge Medication List oxyCODONE HCL [OxyCONTIN] 30 mg PO Q12H 04/14/16 [History] oxyCODONE HCL [OxyIR] 5 mg PO TID PRN 04/14/16 [History] Citalopram Hydrobromide [CeleXA] 40 mg PO DAILY 08/17/17 [History] Tamsulosin [Flomax] 0.4 mg PO DAILY 08/17/17 [History] Budesonide-Formot 160-4.5 Mcg [Symbicort 160-4.5 Mcg Inhaler] 2 puff INHALATION RT-BID #1 inhaler 08/21/17 [Rx] Albuterol Inhaler [Ventolin Hfa Inhaler] 2 puff INHALATION RT-QID 08/23/17 [ History] Demeclocycline [Declomycin] 150 mg PO BID #60 tab 09/03/17 [Rx] Albuterol Nebulized [Ventolin Nebulized] 2.5 mg INHALATION RT-DAILY 06/23/18 [ History] Lisinopril [Zestril] 20 mg PO DAILY 06/23/18 [History] Omeprazole 20 mg PO DAILY 06/23/18 [History] Ondansetron [Zofran] 4 mg PO QID PRN 06/23/18 [History] Sodium Chloride Tab 1 gm PO TID 06/23/18 [History] Azithromycin [Zithromax] 250 mg PO DAILY #4 tab 06/25/18 [Rx] predniSONE 40 mg PO DAILY 3 Days #6 tab 06/25/18 [Rx] Follow up Appointment(s)/Referral(s): Cedric Powell MD [Primary Care Provider] - 1-2 days Discharge Disposition: HOME SELF-CARE
== END 2018-06-25 16:00 | disposition home or self-care (01) | DRG 191 ==
LOC: EC 16:08 → 4MS4W 19:09
PROVIDERS: ADMIT Hospitalist; ATTEND Hospitalist
DX: J44.1 Chronic obstructive pulmonary disease with (acute) exacerbation (principal); J93.81 Chronic pneumothorax; E22.2 Syndrome of inappropriate secretion of antidiuretic hormone; E87.5 Hyperkalemia; F17.210 Nicotine dependence, cigarettes, uncomplicated; F32.9 Major depressive disorder, single episode, unspecified; F41.9 Anxiety disorder, unspecified; G89.29 Other chronic pain; I10 Essential (primary) hypertension; M19.90 Unspecified osteoarthritis, unspecified site; N40.0 Benign prostatic hyperplasia without lower urinary tract symptoms; M54.5 Low back pain; Z87.01 Personal history of pneumonia (recurrent); Z85.118 Personal history of other malignant neoplasm of bronchus and lung; Z79.51 Long term (current) use of inhaled steroids; Z79.899 Other long term (current) drug therapy; Z82.49 Family history of ischemic heart disease and other diseases of the circulatory system; Z83.3 Family history of diabetes mellitus
CPT/HCPCS: 36415; 71046; 80053; 82550; 82553; 84484; 85025; 85610; 85730; 87070; 87077; 87186; 87205; 93005; 94640; 96361; 96365; 96366; 99285

== ENCOUNTER → 2018-09-11 | Outpatient (CLI) | payer OTHER ==
[2018-09-11 09:56] LABS: Blood Urea Nitrogen 6 mg/dL (9-20)
--- NOTE | 2018-09-11 22:19 | MR ---
EXAMINATION TYPE: MR brain wo/w con DATE OF EXAM: 09/11/2018 COMPARISON: 06/03/2018 HISTORY: 53-year-old male malignant neoplasm of left main bronchus TECHNIQUE: Multiplanar, multisequence images of the brain and brainstem were acquired before and aft er administration of 5 mL IV Gadavist. Diffusion weighted imaging is performed. FINDINGS: No evidence for acute infarction, hemorrhage, mass, mass effect, midline shift, herniation, effacemen t of basal cisterns, or extra-axial fluid collection. The ventricles and sulci are age-appropriate. Major intracranial flow voids are intact. T2/FLAIR weighted sequences show moderate scattered burden of bright white matter change in both cere bral hemispheres relatively similar to prior exam. Midline structures demonstrate normal morphology. The craniocervical junction is normal. Post contrast images demonstrate no evidence of pathologic enhancement. Dural venous sinuses are pat ent. Mild mucosal thickening within the ethmoid air cells and frontal sinuses and moderate within the left maxillary sinus. A 1.1 cm round, nonenhancing, superficial subcutaneous T2 hyperintense lesion along the left cheek. T his seems to have been present on prior exam. IMPRESSION: 1. No acute intracranial abnormality or evidence for brain metastases. 2. Chronic T2 bright white matter changes with moderate scattered burden, stable from prior. 3. A 1.1 cm cystic lesion in the superficial subcutaneous tissues of the left cheek seems to have pre sent previously as well. Correlate with physical exam findings.
== END | disposition home or self-care (01) ==
LOC: RADMRIMAIN 09:21
PROVIDERS: ATTEND Radiology Radiation Oncology
DX: C34.02 Malignant neoplasm of left main bronchus (principal); R90.89 Other abnormal findings on diagnostic imaging of central nervous system; F17.210 Nicotine dependence, cigarettes, uncomplicated; C34.32 Malignant neoplasm of lower lobe, left bronchus or lung; Z92.21 Personal history of antineoplastic chemotherapy; Z92.3 Personal history of irradiation
CPT/HCPCS: 82565; 84520; 70553; 36415; A9585

== ENCOUNTER → 2018-09-18 | Outpatient (CLI) | payer OTHER ==
--- NOTE | 2018-09-18 17:18 | CT ---
EXAMINATION TYPE: CT ChestAbdPelvis w con DATE OF EXAM: 09/18/2018 INDICATION: Follow up for lung cancer. COMPARISON: 05/30/2018 CT DLP: 522 mGycm CONTRAST: Performed with Oral Contrast and with IV Contrast, patient injected with 100ml mL of Isovue M300. TECHNIQUE: Axial images at 5 mm thick sections. Reconstructed images in the coronal plane. Delayed images through the kidneys. FINDINGS: CT CHEST: Portion of the thyroid visualized is normal. No suspicious lung nodules or focal infiltrates are present. Emphysematous changes are present. There is a large loculated pneumothorax which is stable. The thickening along the pleural margin is eviden t. No enlarged mediastinal or hilar adenopathy is evident. Lung findings appear stable over the interval . The ascending aorta diameter at the level of the main pulmonary artery is 3.4 cm. The main pulmonary artery diameter at the bifurcation is 3.0 cm. Coronary artery calcification is present. CT ABDOMEN: Liver: Normal Spleen: Normal Pancreas: Pancreatic duct at the tail is 0.3 cm which is somewhat prominent. This should be less than 0.1 cm. Adrenal glands: The adrenal glands are normal. Gallbladder: Normal Kidneys: No masses are evident. No hydronephrosis is present. There is a 2.9 cm cyst on the lateral right kidney. A inferior pole the right kidney there may be an additional 1.9 cm masslike area. Dens ity is 60 Hounsfield units which suggests a solid lesion. This was not evident on the prior examinati on. Additional workup is recommended. Delayed images were obtained through the kidneys, which remain unremarkable. Aorta: Vascular calcification is within the aorta. Inferior vena cava: Normal. CT PELVIS: Loops of bowel within the abdomen and pelvis are normal. There are loops of bowel which are incom pletely distended or lack oral contrast limiting their evaluation. Appendix: Normal as visualized. Urinary bladder: Normal. Genitourinary structures: Prostate appears unremarkable. Osseous structures: No suspicious lytic or sclerotic lesions. IMPRESSIONS: 1. There may be a new mass measuring 1.9 cm at the inferior right renal pole. Additional workup with ultrasound is recommended. 2. Stable loculated pneumothorax. A Yellow level critical message alert has been initiated for Mando Ann MD~[id number] via the [employer] Critical Results System on 09/18/2018 5:15 PM. This message alert has been sent to Mando Ann MD~[id number] via the preferences provided by the clinician for the receipt of Radiology Critical Findin gs. Message ID [id number].
== END ==
LOC: RADCTMAIN 14:05
PROVIDERS: ATTEND Internal Medicine Hematology & Oncology
DX: C34.92 Malignant neoplasm of unspecified part of left bronchus or lung (principal)
CPT/HCPCS: 71260; 74177; Q9967

== ENCOUNTER → 2018-10-13 | Outpatient (CLI) | payer OTHER ==
--- NOTE | 2018-10-13 15:15 | US ---
EXAMINATION TYPE: US kidneys/renal and bladder DATE OF EXAM: 10/13/2018 COMPARISON: 09/18/2018 CLINICAL HISTORY: C34.92 Lung Ca,Z03.89 Obs Mets,R93.[address] showed right renal lesion. Hx lung ca. EXAM MEASUREMENTS: Right Kidney: 11.8 x 5.5 x 4.5 cm Left Kidney: 11.1 x 4.3 x 5.0 cm Right Kidney: Mid cystic appearing lesion -2.7 x 2.9 x 2.3 cm. Inferior exophytic hypoechoic solid a ppearing lesion - 2.1 x 1.8 x 2.0 cm Left Kidney: wnl Bladder: distended, wnl Bilateral Jets seen There is no evidence for hydronephrosis at this point in time. No nephrolithiasis is seen. The urin angela bladder is anechoic. Bilateral ureteral jets are seen. IMPRESSION: 1. Solid right renal mass emanating from the inferior pole. Percutaneous biopsy could be considered. 2. Simple appearing right midpole renal cyst.
== END | disposition home or self-care (01) ==
LOC: RADUSWWP 14:02
PROVIDERS: ATTEND Internal Medicine Hematology & Oncology
DX: C34.92 Malignant neoplasm of unspecified part of left bronchus or lung (principal); N28.89 Other specified disorders of kidney and ureter; N28.1 Cyst of kidney, acquired
CPT/HCPCS: 76770

== ENCOUNTER → 2018-11-11 | Outpatient (CLI) | payer OTHER ==
--- NOTE | 2018-11-13 07:04 | PE ---
EXAMINATION TYPE: PET CT fusion skull to thigh DATE OF EXAM: 11/11/2018 COMPARISON: CT chest abdomen and pelvis September 18, [address] PET [address] December 17, 2017 and older PET CTs. HISTORY: Left-sided Lung cancer progress study. Completed chemotherapy in November 2017. Completed r adiation treatment in January 2018. Newly diagnosed renal cell carcinoma. TECHNIQUE: Following the intravenous administration of 11.698 mCi of F-18 FDG, whole body images are performed from the skull base to the midthigh. Images are reviewed on the computer in the coronal, axial, and sagittal planes. Reconstructed rotating images are created on independent workstation and reviewed on the computer. A noncontrast CT is performed in conjunction with the PET scan. SCAN: Subsequent Scan FINDINGS: SKULL BASE AND NECK: No new areas of abnormal hypermetabolic uptake are present. CHEST, MEDIASTINUM, AND HILAR REGION: There is background [id number] emphysematous change red emonstrated. There is persistent loculated left posterior lateral pneumothorax upper to mid lung leve l with irregular thickened rim that is improved from prior. No residual hypermetabolic uptake is pres ent on current study versus prior. There is left mid lung and lower lung linear scarring and atelecta sis redemonstrated without abnormal hypermetabolic uptake currently. No new areas of abnormal hyperme tabolic uptake in the mediastinum or right longer identified.. ABDOMEN AND PELVIS: There is abnormal hypermetabolic uptake in exophytic lower pole right renal lesio n now measuring 2.9 x 2.9 cm axial image 151, max SUV is 8.32. There is second suspicious lesion upper pole laterally left kidney roughly 1 cm in size axial image 1 09, max SUV is 5.15. This may be corresponding to partially exophytic 1.3 cm hypodense lesion on CT a xial image 56 and coronal image 52. OSSEOUS STRUCTURES: No areas of abnormal hypermetabolic uptake are present. OTHER CT: Exaggerated cervical curvature is seen. There is suspicious opacification of left maxillary sinus. Correlate clinically. Bilateral gynecomastia is redemonstrated. There is coronary artery calcification and/or stents identi fied. There is severe calcified plaque of the infrarenal abdominal aorta extending to iliac branch vessels. There is facet arthropathy in the lower lumbar spine. IMPRESSION: No active lung malignancy identified. Suspicious exophytic lesion lower pole level right kidney confirmed. Additional suspicious smaller lesion laterally upper pole level left kidney is worr isome for neoplasm also. CT correlation provided as noted above.
== END ==
LOC: RADPETMAIN 13:34
PROVIDERS: ATTEND Internal Medicine Hematology & Oncology
DX: C34.02 Malignant neoplasm of left main bronchus (principal); C79.01 Secondary malignant neoplasm of right kidney and renal pelvis
CPT/HCPCS: 78815; A9552

== ENCOUNTER → 2018-11-24 | Outpatient (CLI) | payer OTHER ==
--- NOTE | 2018-11-24 12:06 | MR ---
EXAMINATION TYPE: MR brain wo/w con DATE OF EXAM: 11/24/2018 COMPARISON: 09/11/2018 HISTORY: Lung CA, mets CONTRAST: Performed utilizing 5.5 mL intravenous Gadavist gadolinium contrast. TECHNIQUE: Multiplanar, multiecho imaging on a 3.0 Carlyn magnet is performed through the brain. Stud y is performed within 24 hours of arrival to the hospital. The craniovertebral junction is normal. The pituitary is normal. Diffusion-weighted imaging is performed. No abnormal hyperintensity is present to suggest an acute i ntracranial infarct or acute ischemic change. There are multiple punctate centrum semiovale, solorzano radiata and subcortical white matter changes. T here is white matter change within the brainstem. Findings appear similar to the previous examination . Interval change in number or size is not evident. Ventricles and sulci are appropriate for the patient age. No abnormal enhancement is evident. No suspicious enhancing lesions identified. Mucosal thickening with air-fluid levels within the left maxillary sinus. Correlate for acute left ma xillary sinusitis. Remaining paranasal sinuses and mastoid air cells are clear. IMPRESSIONS: 1. No suspicious enhancing lesions to suggest metastatic disease. 2. Multiple bilateral scattered subcortical and deep white matter changes most likely on the basis of chronic appearing microvascular ischemic change. 3. Clinical correlation recommended for acute left maxillary sinusitis.
== END ==
LOC: RADMRIMAIN 08:14
PROVIDERS: ATTEND Internal Medicine Hematology & Oncology
DX: R90.89 Other abnormal findings on diagnostic imaging of central nervous system (principal); C34.92 Malignant neoplasm of unspecified part of left bronchus or lung
CPT/HCPCS: 70553; A9585

== ENCOUNTER → 2019-03-23 | Outpatient (CLI) | payer OTHER ==
[2019-03-23 16:52] LABS: Blood Urea Nitrogen 4 mg/dL (9-20)
--- NOTE | 2019-03-24 14:34 | CT ---
EXAMINATION TYPE: CT ChestAbdPelvis w con DATE OF EXAM: 03/23/2019 COMPARISON: 01/29/2019 CT [employer] chest and chest abdomen pelvis dated 09/18/2018 as well as PET/CT dated 11/11/2018 HISTORY: f/u lung and renal ca CT DLP: 462.1 mGycm. Automated Exposure Control for Dose Reduction was Utilized. CONTRAST: CT scan of the thorax, abdomen and pelvis is performed with IV Contrast, patient injected with 100 mL of Isovue 300. FINDINGS: LUNGS: There remains a loculated thick-walled left hydropneumothorax, very minimally decreased in siz e from the prior of 01/29/2019. There is moderate underlying emphysematous change of the lungs. Left b asilar spiculated nodule measures up to 2.9 x 1.4 cm on image 39 but appears to elongate and could si mply represent atelectasis and fibrosis. Other bandlike areas of scarring and/or atelectasis are seen medially within the lung base similar to the prior of 01/29/2019. Slight pulmonary vascular engorgeme nt is present. Subtle 3 mm some solid nodule is present in the right upper lobe on image 22, vaguely retrospectively seen on the prior. Left hemidiaphragm elevation is seen anteriorly from the adjacent atelectasis and volume loss MEDIASTINUM: There are no greater than 1 cm hilar or mediastinal lymph nodes. There is a prominent ep icardial lymph node on image 45 measuring 7 mm that appears hyperemic and rounded there remains perib ronchial thickening along the left mainstem bronchus and segmental bronchi. Severe coronary calcifica tions are seen. Very minimal pericardial effusion is unchanged. Very small hiatal hernia is again not ed OTHER: Mild retroareolar gynecomastia is identified. LIVER/GB: There are intensely hypoattenuated scattered hepatic lesion such as on image 55 and 61 that are too small to characterize but likely represent small cysts. However the background hepatic echot exture is slightly heterogenous throughout, somewhat limiting evaluation for small masses. This diffu se heterogenous enhancement was seen on the prior chest CT of 01/22/2019 and could represent hepatocel lular disease/early hepatic steatosis or hepatitis. The previously seen pericholecystic fluid has res olved. No radiopaque gallstones. PANCREAS: No significant abnormality is seen. SPLEEN: No significant abnormality is seen. ADRENALS: No suspicious Nodularity or thickening. KIDNEYS: Solid right renal cell carcinoma measures 2.1 x 2.1 x 1.7 cm. The solid left renal mass seen on the prior PET/CT is also seen in the left upper pole measuring 1.4 cm also worrisome for neoplasm . Other renal cysts are again noted and benign. BOWEL: Moderate degree fecal stasis. No dilated large or small bowel. GENITAL ORGANS: No gross abnormality seen. LYMPH NODES: No greater than 1cm abdominal or pelvic lymph nodes are appreciated. OSSEOUS STRUCTURES: There is minimal sclerosis is seen of the sternal manubrium without discrete susp icious lesion. OTHER: Extensive atherosclerosis of the abdominal aorta and its branches are seen. Mild anasarca is p resent. Abdominal ascites has resolved. IMPRESSION: 1. Persistent loculated left hydropneumothorax with a thick rim, empyema is possible. Adjacent nodula r densities similar to the prior and more likely related to atelectasis and scarring as it elongates on coronal and sagittal images in the left lower lobe rather than recurrent neoplasm. 2. Multifocal left-sided atelectasis and pleural parenchymal scarring are again noted with left-sided peribronchial cuffing that may be reactive. No new mediastinal adenopathy. 3. Persistent diffuse heterogeneity of the hepatic parenchyma could represent underlying hepatitis, e vahid hepatic steatosis or other hepatocellular disease. 4. Similar-appearing size of the bilateral solid suspicious renal lesions, known right-sided renal ce ll carcinoma, in comparison to the PET/CT of 11/11/2018 given the differences in measurement as no intr avenous contrast was administered on the PET/CT limiting measurement. 5. Redemonstration of the minimal left pericardial effusion. 6. No new suspicious osseous lesions.
== END ==
LOC: RADCTMAIN 16:05
PROVIDERS: ATTEND Internal Medicine Hematology & Oncology
DX: C64.1 Malignant neoplasm of right kidney, except renal pelvis (principal); C34.92 Malignant neoplasm of unspecified part of left bronchus or lung; J94.8 Other specified pleural conditions; J98.11 Atelectasis; J98.4 Other disorders of lung; I31.3 Pericardial effusion (noninflammatory)
CPT/HCPCS: 82565; 84520; 71260; 74177; 36415; Q9967

== ENCOUNTER → 2019-04-04 | Outpatient (CLI) | payer OTHER ==
--- NOTE | 2019-04-04 08:01 | MR ---
EXAMINATION TYPE: MR brain wo/w con DATE OF EXAM: 04/04/2019 COMPARISON: Prior MRI brain November 24, 2018 and older MRIs. HISTORY: Metastatic lung cancer undergoing chemotherapy and radiation treatment. TECHNIQUE: Multiplanar, multisequence images of the brain and brainstem is performed without and with IV contras t, utilizing 5 mL intravenous Gadavist . FINDINGS: Diffusion weighted images demonstrate no evidence of a recent infarct or other diffusion ab normality. There is no worrisome extra-axial fluid collection.. There is diffuse ventricular sulcal prominence. There are scattered foci of T2 hyperintensity seen throughout the white matter bilaterall y. Approximately 40-50 scattered lesions are seen. Midline structures demonstrate normal morphology. The craniocervical junction appears within normal limits. Post contrast images demonstrate no new or suspicious enhancement. The dural venous sinuses appear patent. Mild to moderate mucosal thickening involving left maxillary sinus is redemonstrated w ith improvement in dependent fluid. Remainder of paranasal sinuses remain clear. Globes remain distor pauline by artifact. IMPRESSION: Mild diffuse cerebral atrophy and moderate chronic small vessel ischemic changes redemons trated. No new enhancing masses identified to suggest metastatic disease. Chronic left maxillary sinu s disease redemonstrated. Overall no significant change from most recent MRI.
== END | disposition home or self-care (01) ==
LOC: RADMRIMAIN 06:37
PROVIDERS: ATTEND Radiology Radiation Oncology
DX: G31.9 Degenerative disease of nervous system, unspecified (principal); I67.82 Cerebral ischemia; J32.0 Chronic maxillary sinusitis; C34.02 Malignant neoplasm of left main bronchus; Z87.891 Personal history of nicotine dependence; Z92.3 Personal history of irradiation; Z92.21 Personal history of antineoplastic chemotherapy
CPT/HCPCS: 70553; A9585

== ENCOUNTER → 2019-06-01 | Outpatient (CLI) | payer OTHER ==
[2019-06-01 10:05] LABS: African American GFR (CKD) >90 (>60 ml/min/1.73 sqM); Blood Urea Nitrogen 3 mg/dL (9-20)
--- NOTE | 2019-06-01 11:50 | CT ---
EXAMINATION TYPE: CT ChestAbdPelvis w con DATE OF EXAM: 06/01/2019 COMPARISON: 03/23/2019 HISTORY: Lung CA possible mets CT DLP: 529.1 mGycm CONTRAST: CT scan of the chest, abdomen and pelvis is performed with Oral Contrast and with IV Contrast, patien t injected with 100 mL of Isovue 300. [address] Chest: LUNGS: Essentially stable thick-walled left-sided hydropneumothorax. Moderate underlying emphysematou s change. Left basilar spiculated nodule measuring approximately 2.8 x 1.4 cm versus 2.9 x 1.4 cm pre viously is unchanged. This could reflect fibrosis and scarring. Additional areas of bandlike scarring and atelectasis identified medially. Previously described right upper lobe pulmonary nodule is not r edemonstrated at this time. MEDIASTINUM: Persistent peribronchial thickening left mainstem bronchus. Thoracic aorta is of normal caliber. The heart is not enlarged. No evidence for mediastinal mass or adenopathy. HILAR STRUCTURES: No evidence for mass. No hilar adenopathy is appreciated. OTHER: No significant abnormality. CONTRAST CT ABDOMEN AND PELVIS FINDINGS: LIVER/GB: No calcified gallstones. Stable subcentimeter hepatic lesions too small to characterize a lthough likely reflecting small cysts. Biliary tree is of normal caliber. PANCREAS: No inflammation. No distinct mass. SPLEEN: No splenic enlargement. No lesion seen. ADRENALS: No nodule. No thickening. KIDNEYS/BLADDER: No hydronephrosis. No nephrolithiasis. Renal cystic changes remain stable. Solid l esion lower pole right kidney is smaller in size measuring 1.2 cm versus 2.2 cm previously. Apparentl y this is a known right-sided renal cell carcinoma. BOWEL: Normal appendix. Normal bowel caliber. No inflammation. GENITAL ORGANS: No gross abnormality. LYMPH NODES: No greater than 1cm abdominal or pelvic lymph nodes are appreciated. AORTA: No significant abnormality. OSSEOUS STRUCTURES: No significant abnormality is seen. OTHER: No significant additional abnormality is seen. IMPRESSION: 1. Stable appearance of the chest with loculated hydropneumothorax identified on the left and in area s of spiculated density which could reflect scarring. Underlying mass is not excluded. 2. Too small to characterize hepatic lesions are stable and likely reflect cysts. 3. Solid mass lower pole right kidney persists although is smaller in size.
== END | disposition home or self-care (01) ==
LOC: RADCTMAIN 09:01
PROVIDERS: ATTEND Internal Medicine Hematology & Oncology
DX: J94.8 Other specified pleural conditions (principal); N28.89 Other specified disorders of kidney and ureter; K76.9 Liver disease, unspecified; C34.92 Malignant neoplasm of unspecified part of left bronchus or lung
CPT/HCPCS: 82565; 84520; 71260; 74177; 36415; Q9967

== ENCOUNTER → 2019-08-10 | Outpatient (CLI) | payer OTHER ==
[2019-08-10 08:39] LABS: African American GFR (CKD) >90 (>60 ml/min/1.73 sqM); Blood Urea Nitrogen 3 mg/dL (9-20)
--- NOTE | 2019-08-10 18:03 | CT ---
EXAMINATION TYPE: CT ChestAbdPelvis w con DATE OF EXAM: 08/10/2019 INDICATION: Lung CA with suspect mets COMPARISON: 06/01/2019 CT DLP: 959 mGycm CONTRAST: Performed with Oral Contrast and with IV Contrast, patient injected with 100 mL of Isovue 300. TECHNIQUE: Axial images at 5 mm thick sections. Reconstructed images in the coronal plane. Delayed images through the kidneys. FINDINGS: CT CHEST: Portion of the thyroid visualized is normal. There is a 1.8 x 2.8 cm area extending along the major fissure near the left lung base can be related to prior cancer or scarring. Stranding is within the posterior left upper lobe. Some peribronchial t hickening is in the left upper lobe. Loculated retro-pneumothorax is present with thick pleural joe n evident. Fluid air level is evident. No enlarged mediastinal or hilar adenopathy is evident. The ascending aorta diameter at the level of the main pulmonary artery is 0.7 cm. The main pulmonary artery diameter at the bifurcation is 2.9 cm. Dense coronary artery calcification is evident. CT ABDOMEN: Liver: There is a 0.6 cm cyst in the superior right lobe liver. Couple of additional punctate hypoden sities are present may also represent additional hepatic cysts. These appear present previously. Spleen: Normal Pancreas: Normal Adrenal glands: The adrenal glands are normal. Gallbladder: Normal Kidneys: No masses are evident. The density at the inferior pole right kidney is smaller than compari son. No hydronephrosis is present. There is a 2.5 cm cyst on the lateral right kidney. Tiny cortica l renal cysts on the anterior left mid kidney. A 1.2 cm cyst is on the medial left mid to inferior ki dney. Delayed images were obtained through the kidneys, which remain unremarkable. Aorta: Vascular calcification is within the aorta. Inferior vena cava: Normal. CT PELVIS: Loops of bowel within the abdomen and pelvis are normal. There are loops of bowel which are incom pletely distended or lack oral contrast limiting their evaluation. Appendix: Not visualized. Urinary bladder: Normal. Genitourinary structures: Prostate is somewhat prominent. Osseous structures: No suspicious lytic or sclerotic lesions. IMPRESSIONS: 1. Loculated stable hydropneumothorax. 2. Scarring within the left hemithorax. 3. Suspicious areas for metastasis or not evident.
== END | disposition home or self-care (01) ==
LOC: RADCTMAIN 08:02
PROVIDERS: ATTEND Internal Medicine Hematology & Oncology
DX: J94.8 Other specified pleural conditions (principal); C34.92 Malignant neoplasm of unspecified part of left bronchus or lung
CPT/HCPCS: 82565; 84520; 71260; 74177; 36415; Q9967